=== PATIENT | male | born 1935 | race Caucasian/White ===

== ENCOUNTER 2017-09-15 08:25 | Outpatient (CLI) | payer MEDICARE, BC, OTHER ==
[2017-09-15] MEDS ORDERED: Iopamidol 370 76% 100 ML VIAL ONE (09:00)
--- NOTE | 2017-09-15 12:32 | CT ---
CT OF THE CHEST AND ABDOMEN AND PELVIS WITH IV CONTRAST: Date: 09/15/17 INDICATION: 81-year-old male with history of renal carcinoma of the right kidney. COMPARISON: CT of the chest, abdomen, and pelvis dated 05/11/17 from [facility]. TECHNIQUE: Multiple CT images were obtained of the chest, abdomen, and pelvis utilizing 70 mL of Isovue-370. Axi al and coronal reformatted images were constructed from the raw data. FINDINGS: CHEST: There are numerous scattered pulmonary nodules and masses consistent with metastatic disease. The ind ex mass within the left upper lobe, anterior segment, has enlarged, measuring 5.1 cm, where on the mo previous examination the lesion measured 3.0 cm. The lesion now abuts the medial margin of the ant erior superior mediastinum. The index nodule within the anterior segment of the right upper lobe has enlarged, now measuring 3.0 cm, whereas it previously measured 2.5 cm. Numerous additional nodules arroyo ve enlarged bilaterally. There has been interval development of small bilateral pleural effusions. There are enlarging mediastinal lymph nodes. One of the largest is seen within the left paraesophagea l region measuring 1.6 cm, where previously it measured 1.4 cm. There is an additional enlarged parae sophageal lymph node seen adjacent to the left posterolateral aspect of the left atrium measuring 2.5 x 4.0 cm, where it previously measured 1.8 x 3.5 cm. There are scattered vascular calcifications involving the coronary artery and thoracic aorta. There i s mild bilateral male gynecomastia. ABDOMEN: Multiple small hypodense lesions involving the liver likely reflective of cysts are similar appearing . The large, heterogeneous, centrally necrotic mass centered within the superior aspect of the right pa rarenal space arising from the superior pole of the right kidney has enlarged measuring 13.9 x 13.6 x 15.7 cm, whereas the lesion on the comparison examination measured 13.2 x 13.5 x 15.4 cm. Regional m etastatic disease within the right perinephric space is again demonstrated. There is superior mass ef fect on the posterior inferior margin of the right hepatic lobe, as well as the right adrenal gland. There is no overt evidence of renal vein invasion demonstrated. The right renal pelvic staghorn calcu zulma is stable. There are multiple small stones within the gallbladder. Pancreas and left adrenal gland are normal ap pearing. Small hyperdense exophytic lesion off the superior pole of the left kidney measuring 1.4 cm is stable in size and was characterized on previous evaluations as a hyperdense cyst. The spleen measures 16.9 cm, slightly more pronounced on the prior exam where it measured up to 16.0 cm. The perinephric edema involving the right aspect of the abdomen is similar. Scattered vascular calcif ications involving the abdominal aorta are similar. PELVIS: There is scattered diverticula involving the colon without evidence of active diverticulitis. No osteolytic or osteoblastic lesion is identified. There is scattered degenerative and osteoarthriti c change. There is a right foraminal disc protrusion containing gas at the L5-S1 level that is slightly more pr onounced than seen on the prior examination. This gas does extend into the right extraforaminal space . IMPRESSION: 1. Worsening primary and metastatic disease. 2. Interval development of small bilateral pleural effusions. 3. Worsening splenomegaly. 4. Cholelithiasis and stable left hyperdense renal cyst. 5. Right L5-S1 foraminal disc protrusion containing vacuum disc phenomenon. Recommend correlation fo r any symptoms and signs of radiculopathy. POS: [facility]
== END 2017-09-15 08:26 | disposition home or self-care (01) ==
LOC: SCSCT 08:25
PROVIDERS: ATTEND Internal Medicine Hematology & Oncology
DX: C64.1 Malignant neoplasm of right kidney, except renal pelvis (principal); J90 Pleural effusion, not elsewhere classified; R16.1 Splenomegaly, not elsewhere classified; K80.20 Calculus of gallbladder without cholecystitis without obstruction; M51.27 Other intervertebral disc displacement, lumbosacral region
CPT/HCPCS: 71260; 74177

== ENCOUNTER 2017-09-20 06:47 | Inpatient (IN) | payer MEDICARE, BC, OTHER ==
[2017-09-20] MEDS ORDERED: Ondansetron HCl/PF 4 MG/2 ML Vial ONE (07:10)
--- NOTE | 2017-09-20 07:41 | RAD ---
PORTABLE UPRIGHT CHEST ONE VIEW: History: 81-year-old male with cough and abdominal pain. Known renal cell carcinoma with metastasis. FINDINGS: There are patchy bilateral alveolar parenchymal changes in the perihilar regions and both lower lobes , worse on the left side. These changes have worsened when compared to the 12-14-16 study. There is amaris e nodular parenchymal changes in both right and left more peripheral lungs which have increased in si ze when compared to the 12-14-16 study. These are suspicious for enlarging metaphysis. Small pleural ef fusions, slightly larger on the left side. IMPRESSION: Patchy bilateral alveolar nodular parenchymal changes, evidence for progressive pulmonary metaphysis. Small left pleural effusion and minimal right costophrenic angle blunting. Patchy increased bronchov ascular markings bilaterally, little changed from CT [employer], 09-15-17. POS: [facility]
[2017-09-20 07:43] LABS: Lactic Acid - Sepsis 2.1 mmol/L (0.5-2.2)
[2017-09-20 08:07] LABS: ALT (SGPT) 12 U/L (8-55); AST (SGOT) 27 U/L (5-34); Alkaline Phosphatase 215 U/L (40-150); Anion Gap 17 mmol/L (10-20); BUN (Urea Nitrogen) 19 mg/dL (8.4-25.7); Bilirubin, Total 1.3 mg/dL (0.2-1.2); Calc. Creatinine Clearance 0 mL/min (70-130); Calcium 10.2 mg/dL (7.8-10.44); Carbon Dioxide 24 mmol/L (23-31); Chloride 97 mmol/L (98-107); Estimated GFR-MDRD 69; Globulin 4.5 g/dL (2.4-3.5); Lipase 7 U/L (8-78); Protein, Total 7.7 g/dL (5.8-8.1)
[2017-09-20 08:09] LABS: Troponin I Less than 0.010 ng/mL (< 0.028)
[2017-09-20 08:15] LABS: Hematocrit 43.8 % (42.0-52.0); Mean Platelet Volume 9.5 fL (7.4-10.4); White Blood Cell (WBC) Count 19.8 thou/uL (4.8-10.8)
[2017-09-20 08:23] LABS: Band 3 % (5-11); Reactive Lymphocytes 2 % (0-10)
[2017-09-20 08:25] LABS: Neutrophil 87 % (42-75)
--- NOTE | 2017-09-20 08:35 | CT ---
CT ABDOMEN AND PELVIS WITH CONTRAST: History: 81-year-old male with abdominal pain. Again noted is a very large advanced renal cell carcinoma with pulmonary metastasis as well as metast atic disease within the abdomen and retroperitoneum, stable from the prior 09-15-17 study. The gallbla dder contains gallstones and appears to be definitely more distended than on the prior study with amaris e gallbladder wall thickening and indistinction raising concern for developing acute cholecystitis. N o ductal dilatation. Stable ascites and pleural effusions, greater on the left side. Stable renal cys t. Stable small hyperdense left renal cyst and stable nonobstructing right renal calculus. Stable spl enomegaly. IMPRESSION: Interval enlargement and distention of the gallbladder with some gallbladder wall thickening and manjit stinction raising concern for acute cholecystitis since the 09-15-17 study with cholelithiasis. Consid er follow up gallbladder ultrasound or Nuclear Medicine hepatobiliary scan for further assessment. St able extensive primary and metastatic renal malignancy changes within the abdomen and chest. Other st able findings as above. POS: [facility]
[2017-09-20] MEDS ORDERED: Piperacillin/Tazobactam 3.375 GM in Sodium Chloride 0.9% 100 ML IVPB SCH (09:15)
[2017-09-20 09:58] LABS: Bilirubin Small (Negative); Blood, Urine Large (Negative); Glucose, Urine (Dipstick) Negative (Negative); Ketone, Urine Negative (Negative); Nitrite Negative (Negative); Protein, Urine (Dipstick) 30 mg/dL (Neg-Trace)
[2017-09-20 10:01] LABS: Hyaline Casts/LPF 4-6 HYALINE CAST LPF (0-3 Hyaline); Squamous Epithelial None Seen HPF (0-3)
[2017-09-20 10:14] LABS: Bacteria/HPF Rare-Few HPF (None Seen)
--- NOTE | 2017-09-20 10:23 | ULT ---
RIGHT UPPER QUADRANT ULTRASOUND: Indication: Right upper quadrant pain. Comparison: CT abdomen and pelvis, 09-12-17. FINDINGS: Gallbladder is distended with multiple small stones and gallbladder sludge. The gallbladder is thicke bryon with pericholecystic fluid. No sonographic Huang's sign is reported. Common bile duct measured 5 .3 mm. There are bilateral hepatic cysts. Large superior right renal pole mass causes prominent mass effect on the posterior aspect of the right hepatic lobe. The right kidney measured approximately 9.5 x 6.5 x 5.9 cm. Visualized aspects of the pancreas are unremarkable. IMPRESSION: 1. Findings suspicious for acute calculus cholecystitis. Recommended correlation with clinical exam. If clinically indicated, HIDA scan my helpful. 2. Right and left hepatic lobe cysts. 3. Large right renal malignancy. POS: [facility]
[2017-09-20] MEDS ORDERED: ISOVUE-370 76%-LOCM 1 ML ONE (13:07)
--- NOTE | 2017-09-20 13:26 | HP ---
PRIMARY CARE PHYSICIAN: Anuj Whaley D.O. REASON FOR ADMISSION: Acute cholecystitis, sepsis, urinary tract infection. 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 This patient was admitted in our hospital on 09/14/2016. At that time, he was diagnosed with pulmonary embolism and superficial vein thrombosis. The patient was treated with anticoagulation therapy and subsequently he was taking Eliquis therapy. Patient is still on Eliquis therapy and he took last tablet yesterday evening. This morning he did not take any blood thinner medicine. Patient has a history of metastatic renal cell carcinoma diagnosed after lung biopsy and the patient was getting chemotherapy pill, but that chemotherapy pill made toxicity to the liver and that is why it was discontinued and subsequently patient was kept on immunotherapy since February and the patient was getting immunotherapy every 2 weeks, but that was also not making any improvement as per Dr. Grider and his last immunotherapy was about 2 weeks ago. The patient is normally feeling up to his baseline health. He is able to ambulate and he did not have any problem up until last night when he started having diffuse abdominal pain predominantly in the right upper quadrant associated with nausea, episode of vomiting as well as rigors and chills. He denies any urinary tract infection symptoms, but he does have a history of benign enlargement of prostate and he is taking Flomax. Patient also has increased frequency, but he attributes to be due to Lasix. He denies any diarrhea, though he is constipated. He denies any melena or hematochezia. He denies any hematemesis. He denies any fever. He denies any chest pain or palpitation. He denies any orthopnea, PND or leg swelling. REVIEW OF SYSTEMS: The following complete review of systems was negative, unless otherwise mentioned in the HPI or below: Constitutional: Weight loss or gain, ability to conduct usual activities. Skin: Rash, itching. Eyes: Double vision, pain. ENT/Mouth: Nose bleeding, neck stiffness, pain, tenderness. Cardiovascular: Palpitations, dyspnea on exertion, orthopnea. Respiratory: Shortness of breath, wheezing, cough, hemoptysis, fever or night sweats. Gastrointestinal: Poor appetite, abdominal pain, heartburn, nausea, vomiting, constipation, or diarrhea. Genitourinary: Urgency, frequency, dysuria, nocturia. Musculoskeletal: Pain, swelling. Neurologic/Psychiatric: Anxiety, depression. Allergy/Immunologic: Skin rash, bleeding tendency. Please see my HPI for pertinent positives and negatives. All other review of systems reviewed and negative except as mentioned in the HPI. ALLERGIES: Pazopanib CURRENT HOME MEDICATIONS: Amiodarone 100 mg p.o. daily, Lasix 20 mg as needed, Protonix 40 mg p.o. daily, Flomax 0.4 mg p.o. daily, Corlanor 2.5 mg twice daily , Entresto 24/26 mg 1 tablet twice daily, Proscar 5 mg p.o. daily, Lipitor 10 mg p.o. daily, Eliquis 2.5 mg p.o. b.i.d., Centrum one tablet p.o. daily. EMERGENCY ROOM COURSE: Patient has received Zosyn, IV fluids and Zofran. 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 PAST SURGICAL HISTORY: Sinuplasty, surgery on the testicle for removal of growth, right knee surgery, tonsillectomy, foot surgery, cardiac catheterization , bronchoscopy with lung biopsy. PAST PSYCHIATRIC HISTORY: Reviewed and negative. SOCIAL HISTORY: Patient is . His is present at bedside. He denies any smoking or other illicit drug abuse. He has a remote history of alcohol use, but socially. FAMILY HISTORY: No strong family history of premature coronary artery disease, stroke or cancer. PHYSICAL EXAMINATION: VITAL SIGNS: On arrival, blood pressure 136/79, pulse 130, respiratory rate 36 , temperature 97.7, saturation 90% on room air, weight 92.5 kilograms. GENERAL: Patient is currently chronically ill, appears no obvious acute distress. HEENT: Head: Normocephalic, atraumatic. Eyes: Pupils round, reactive to light. Extraocular muscles intact. ENT: Oropharynx within normal limits. Moist mucous membranes. No oral lesions. No pharyngeal erythema, no exudate. NECK: Supple, no JVD, no thyromegaly, no carotid bruits, no JVD. LUNGS: Clear to auscultation without any rhonchi or rales. CARDIAC: S1, S2 regular, slight tachycardia, no murmur, no gallop, no rub. ABDOMEN: Patient does have right upper quadrant tenderness, diffuse soreness noted. No peritoneal signs, no guarding, no rigidity, no rebound, no suprapubic discomfort. BACK: Unremarkable. No CVA tenderness. EXTREMITIES: Upper extremity passive movement of all joints is normal. Lower extremities: No edema. Good peripheral pulsation. SKIN: No skin rash. HEMATOLOGICAL: No lymphadenopathy. PSYCHIATRIC: Normal affect. NEUROLOGIC: Nonfocal examination. SIGNIFICANT LABS: EKG showing normal sinus rhythm, lateral wall ST-T changes. Chest x-ray: Cardiomegaly without any acute process. Abdomen ultrasound reported as acute acalculous cholecystitis, right and left hepatic lobe cyst, large right renal malignancy. Abdomen and pelvis CT scan showed interval enlargement and distention of the gallbladder with gallbladder wall thickening, stable extensive primary and metastatic renal malignancy, changes within the abdomen and chest. CBC: WBC 19.8, hemoglobin 12.5, platelet 237 with bandemia. BMP: Sodium 133, potassium 4.7, chloride 97, carbon dioxide 24, anion gap 17, BUN 19, creatinine 1.04, glucose 161, calcium 10.2. LFT: Bilirubin 1.3, AST 27, ALT 12, alkaline phosphatase 215, albumin 3.2, lipase 7, CK-MB 0.6, troponin I less than 0.010. Lactic acid 2.1. Urinalysis: Leukocyte esterase trace, high specific gravity, blood large. Influenza A and B negative. ASSESSMENT AND PLAN: 1. Sepsis, source of infection is likely acute cholecystitis and urinary tract infection. We will send urine culture and blood culture. Patient will be treated with Rocephin 2 gram IV daily and Levaquin 750 mg IV daily. We will follow up on culture result and change antibiotic therapy accordingly. We will closely monitor on telemetry floor. Patient has underlying congestive heart failure and that is why he may not be able to get IV fluids. His blood pressure is chronically low because of cardiomyopathy. 2. Mild hypoxia on admission, likely related with his poor inspiratory effort because of abdominal pain from acute cholecystitis. At this point, his chest x- ray is not showing any acute process. We will prefer to give him incentive spirometry to prevent atelectasis. This patient also has underlying pulmonary metastatic disease from renal cell carcinoma as well as he has cardiomyopathy and that also making him pleural effusion, but that is all unchanged from previous. 3. Nonischemic cardiomyopathy with chronic systolic heart failure. We will check BNP, mostly patient has euvolemic status. We will avoid Lasix at this point. 4. Paroxysmal atrial fibrillation with nonsustained ventricular tachycardia from cardiomyopathy. We will continue amiodarone as per home dosage. 5. Chronic systolic heart failure. We will continue Corlanor and Entresto as per home dosage as tolerated. Currently, patient is euvolemic. 6. Benign enlargement of prostate. We will continue Flomax 0.4 mg p.o. daily. 7. History of DVT and pulmonary embolism on chronic anticoagulation therapy with Eliquis. We will hold on Eliquis therapy because plan for surgery. 8. Acute cholecystitis. Dr. Valenzuela already consulted and spoke with him and he is planning to do surgery tomorrow. We will check PT/INR given patient is on Eliquis therapy. If his coagulation profile is unremarkable, then we will consider doing this surgery tomorrow. Meanwhile, we will continue with Rocephin and Levaquin as mentioned above as well as we will control his pain with morphine as needed basis. 9. Gastroesophageal reflux disease. We will continue Protonix 40 mg IV daily. 10. Dyslipidemia. We will continue Lipitor 10 mg p.o. at bedtime. 11. Metastatic renal cell carcinoma, finished chemo and immunotherapy without any improvement. Patient will follow up with Dr. Grider as an outpatient basis. 12. DVT prophylaxis. Only sequential compression device boots today. 13. Gastrointestinal prophylaxis, Protonix 40 mg IV daily. 14. Code status. I spoke with the patient and patient's and confirmed FULL CODE STATUS. 15. Urinary tract infection. We will send urine culture and continue with Rocephin and Levaquin. Disposition plan based on clinical course. We are expecting patient's stay in hospital more than 2 midnights. Plan of care discussed with the patient and at bedside. MTDD
[2017-09-20] MEDS ORDERED: Milk Of Magnesia 30 ML UDCUP PO PRN (14:23)
[2017-09-20] MEDS ORDERED: Zolpidem Tartrate 5 MG TAB PO PRN (14:23)
[2017-09-20] MEDS ORDERED: Loratadine 10 MG TAB PO PRN (14:23)
[2017-09-20] MEDS ORDERED: Diabetic Tussin 200 MG/10 ML UDCUP PO PRN (14:23)
[2017-09-20] MEDS ORDERED: Senokot 8.6 MG TAB PO PRN (14:23)
[2017-09-20] MEDS ORDERED: HYDROcodone/Acetaminophen 5/325 mg Tablet PO PRN (14:23)
[2017-09-20] MEDS ORDERED: Chloraseptic Spray 180 ml Bottle PO PRN (14:23)
[2017-09-20] MEDS ORDERED: Sodium Chloride 0.65% Nasal 44 ML BOT EA NARE PRN (14:23)
[2017-09-20] MEDS ORDERED: Mag-Al 1200 mg/1200 mg/30 ML UDCUP PO PRN (14:23)
[2017-09-20] MEDS ORDERED: Ondansetron ODT 4 MG TAB PO PRN (14:23)
[2017-09-20] MEDS ORDERED: hydrALAZINE 20 MG/ML VIAL SLOW IVP PRN (14:23)
[2017-09-20] MEDS ORDERED: Loperamide HCl 2 MG CAP PO PRN (14:23)
[2017-09-20] MEDS ORDERED: Eucerin (Mineral Oil/Petrolatum,White) 30 gm Jar TOP PRN (14:23)
[2017-09-20] MEDS ORDERED: Artificial Tears 18 DROP/0.9 ML EA EYE PRN (14:23)
--- NOTE | 2017-09-20 14:38 | CON ---
DATE OF CONSULTATION: 09/20/2017 REQUESTING PHYSICIAN: Santos Zamudio M.D. HISTORY OF PRESENT ILLNESS: This is a 81-year-old man with history of metastatic right mayra al cell carcinoma and chronic diastolic and systolic congestive heart failure. The patient presented to the emergency department today with a complaint of insidious onset epigastric to right upper quad rant abdominal pain which started late last night. Pain was associated with some nausea, but no emes is. The patient presented to the emergency department following worsening of the abdominal pain, whi ch was now associated with some chills. He denies any flatulence, abdominal bloating or diarrhea. He reports worsening fatigue over the last 1-2 weeks. He reports early satiety and anorexia. PAST MEDICAL HISTORY: Significant for metastatic large right renal cell carcinoma, pulmonary embolis m, chronic diastolic and systolic congestive heart failure with last ejection fraction noted at 20%-2 5%. The patient also has history of essential hypertension, paroxysmal atrial flutter, coronary babita ry disease and hyperlipidemia. SURGICAL HISTORY: Pertinent for previous coronary angiography, ORIF of right femur fracture during War, which was complicated by osteomyelitis. Other surgical history includes a right tota l knee arthroplasty and revision of the previous femoral surgery. The patient also admits to a child meyer tonsillectomy and adenoidectomy. SOCIAL HISTORY: The patient is and lives at home with his . He denies any cigarette smo braden, ethanol or illicit drug abuse. FAMILY HISTORY: Noncontributory for this patient's age. ALLERGIES: Patient denies any known drug allergies. PREHOSPITALIZATION MEDICATIONS: Includes amiodarone 200 mg p.o. daily, finasteride 5 mg p.o. daily, furosemide 20 mg p.o. daily, pantoprazole 40 mg p.o. daily, simvastatin 20 mg p.o. daily, Flomax 0.4 mg p.o. daily. He also takes Eliquis twice daily, does not recall the dosage. REVIEW OF SYSTEMS: Ten point review of systems essentially unremarkable except for as stated in past medical history and chief complaint. PHYSICAL EXAMINATION: GENERAL: This reveals a 81-year-old normally developed man who is otherwise coherent and interactive and appears stated age. The patient is alert and oriented x3, appears to be in no significant acute distress at the time of my evaluation. VITAL SIGNS: Reveals normocephalic and atraumatic. Pupils equal, round, and reactive to light and a ccommodation. Extraocular muscles are intact bilaterally. HEENT: Scleral icterus is present. HEART: Reveals irregular rate and rhythm. LUNGS: Clear to auscultation bilaterally. Breathing is regular and unlabored. ABDOMEN: Soft with epigastric and right upper quadrant tenderness to palpation. He has a positive M urphy sign. Liver and spleen are otherwise nonpalpable below costal margins. EXTREMITIES: Reveals 2+ radial and pedal pulses bilaterally. He has trace bilateral ankle edema pre sent. NEUROLOGIC: Reveals no focal deficits present. PERTINENT LABORATORY FINDINGS: Includes a CBC with 19,800 white blood cells, hemoglobin 12.5, hemato crit is 43.8, platelet count is 237,000. Metabolic profile: Sodium 133, potassium 4.7, chloride is 97, bicarbonate 24, BUN 19, creatinine is 1.04, glucose 151. Lactic acid is 2.1. Total bilirubin is 1.3, AST and ALT normal at 27 and 12 respectively. Alkaline phosphatase is elevated at 215. Serum lipase is normal at 7. Troponin I is less than 0.010. I have personally reviewed all radiographic s tudies including a CT scan of the abdomen and pelvis obtained today. This is compared to the recent CT scan of abdomen and pelvis obtained on 09/15/2017. This current imaging studies demonstrates an e nlarged gallbladder with multiple intraluminal gallstones. The gallbladder wall is also thickened. Again noted is large right renal cell neoplasm. Ultrasound of the abdomen was also obtained today which confirms the enlarged gallbladder with multip le intraluminal small gallstones, gallbladder wall thickening and pericholecystic fluid. The common bile duct is normal in diameter for this patient's age at 5.3 mm. IMPRESSION: 1. Acute cholecystitis with cholelithiasis. 2. Large metastatic right renal cell carcinoma. 3. History of pulmonary embolism. 4. History of chronic systolic and diastolic congestive heart failure. RECOMMENDATIONS: 1. Antibiotic therapy with bowel rest in hopes that this will resolve the acute cholecystitis. 2. Alternatively consider cholecystostomy tube placement which will provide the patient with the imm ediate relief with gastric pain. This will perhaps do very little to resolve any infectious processe s especially if the gallbladder wall is necrotic. 3. Alternative is to proceed with a definitive care which includes a laparoscopic cholecystectomy. This will be with inherent risks for bleeding, infection, injury to bile duct or surrounding structur es. Additionally, if surgical intervention is elected, the patient faces additional risks for acute myocardial infarction, respiratory failure and difficulty getting off the mechanical ventilatory supp ort. The patient and his have indicated understanding of all this information I provided them today i n the presence of his nurse. I have answered all their questions. I did discuss the above as well with the patient's oncologist, Dr. Grider, by telephone conversation . The patient and his will think over all the information that has been provided today and make a decision as to which direction to go. I will be contacting the patient's in classroom tutor, Dr. Buck lisa as well as his crop ranch hand, Dr. Wil Ann. Thank you again, Dr. Zamudio, for allowing me the opportunity to participate in the care of this romana ent.
[2017-09-20] MEDS ORDERED: Morphine 4 MG/ML VIAL IV PRN (14:39)
[2017-09-20] MEDS: cefTRIAXone\\ROCEPHIN 2 GM, Admixture Fee 1 EACH in Sodium Chloride 0.9% 100 ML IVPB SCH (15:11)
[2017-09-20] MEDS ORDERED: Ivabradine 5 MG TAB PO SCH (21:00)
[2017-09-20] MEDS ORDERED: Atorvastatin Calcium 10 MG TAB PO SCH (21:00)
--- NOTE | 2017-09-20 21:30 | CON ---
DATE OF CONSULTATION: 09/20/2017 HISTORY OF PRESENT ILLNESS: The patient is an unfortunate 81-year-old gentleman with a history of metastatic renal cell carcinoma and coronary artery disease who presents with abdominal discomfort. The patient has a known nonischemic cardiomyopathy.He underwent a cardiac catheterization a year ago where it was found to have an ejection fraction of only 20 to 25%. He was found to have mild coronary artery disease with a 30% LAD lesion and diffuse luminal irregularities in the right coronary artery. The patient has been on medical therapy and has done well, being treated with Entresto and Corlanor. His ejection fraction on last echocardiogram had increased to 45%. The patient was in usual state of health when he presents with abdominal discomfort. Patient also has metastatic renal cell carcinoma, and has been undergone immunotherapy. The patient denies having any chest discomfort. He reports dyspnea on exertion. He denies having any PND or orthopnea. PAST MEDICAL HISTORY: 1. Cardiomyopathy. 2. History of atrial fibrillation. 3. Renal cell carcinoma. 4. Dyslipidemia. 5. History of pulmonary embolus. PAST SURGICAL HISTORY: Knee surgery, tonsillectomy. SOCIAL HISTORY: Nonsmoker. FAMILY HISTORY: No strong family history of heart disease. CURRENT MEDICATIONS: Protonix 40 daily, finasteride 5 mg daily, Eliquis 2.5 b.i.d. Corlanor 2.5 daily, Lipitor 10 at bedtime, Lasix 20 mg p.o. daily, amiodarone 200 mg at bedtime, Entresto 24/26 one tablet twice a day, Flomax 0.4 daily. REVIEW OF SYSTEMS: Ten point system noticeable for weakness and dyspnea. Ten point review of system is otherwise unremarkable. PHYSICAL EXAMINATION: GENERAL: Ill-appearing gentleman with a blood pressure 103/53, heart rate is 102. NECK: Full. LUNGS: Coarse breath sounds bilateral. HEART: Regular rate and rhythm, normal S1, S2, no murmurs. ABDOMEN: Mildly distended. EXTREMITIES: Showed mild edema. NEUROLOGIC: Nonfocal. VASCULAR: Radial pulses are 2+. LABORATORY DATA: Sodium 133, potassium 4.7, chloride 97, bicarbonate 24, BUN 19 , creatinine is 1.0, glucose 161, troponin less than 0.01. White blood cell count is 19.8, hemoglobin 12.5, hematocrit 43.8, platelets are 237. His EKG reveals sinus tachycardia with an ST-T wave abnormality suggestive of ischemia. IMPRESSION: 1. Cholecystitis. 2. History of a nonischemic cardiomyopathy. 3. History of mild coronary artery disease. 4. Metastatic renal cell carcinoma. 5. History of pulmonary embolus. This gentleman presents with cholecystitis. From a cardiac standpoint, he has a history of a nonischemic cardiomyopathy. Maria Teresa hou denies having any angina and does not have evidence of congestive heart failure. From a cardiac standpoint, he is at increased, but acceptable risk for undergoing a cholecystectomy. Concerning his overall health and metastatic renal cell carcinoma, I would recommend proceeding with cholecystectomy. The patient understands that he is at increased risks and appears to be agreeable to proceed. ARIAND
[2017-09-21 05:45] LABS: Prothrombin Time 21.9 SEC (12.0-14.7)
[2017-09-21 05:46] LABS: PTT 48.9 SEC (22.9-36.1)
[2017-09-21 05:55] LABS: ALT (SGPT) 10 U/L (8-55); AST (SGOT) 18 U/L (5-34); Alkaline Phosphatase 174 U/L (40-150); Anion Gap 12 mmol/L (10-20); BUN (Urea Nitrogen) 23 mg/dL (8.4-25.7); Bilirubin, Total 1.2 mg/dL (0.2-1.2); Calc. Creatinine Clearance 60 mL/min (70-130); Calcium 9.2 mg/dL (7.8-10.44); Carbon Dioxide 23 mmol/L (23-31); Chloride 100 mmol/L (98-107); Estimated GFR-MDRD 54; Globulin 3.4 g/dL (2.4-3.5); Protein, Total 5.9 g/dL (5.8-8.1)
[2017-09-21 05:58] LABS: Troponin I 0.025 ng/mL (< 0.028)
[2017-09-21 06:26] LABS: Band 8 % (5-11); Hematocrit 37.1 % (42.0-52.0); Hypochromia SLIGHT = 6-15 cells (100X) (0-5/hpf); Neutrophil 81 % (42-75); Red Blood Cell (RBC) Count 4.48 mill/uL (4.70-6.10); White Blood Cell (WBC) Count 27.6 thou/uL (4.8-10.8)
[2017-09-21] MEDS: Ivabradine 5 MG TAB PO SCH (08:47)
[2017-09-21] MEDS: Tamsulosin HCl 0.4 MG CAP PO SCH (08:48)
[2017-09-21] MEDS: Pantoprazole 40 MG VIAL IVP SCH (08:49)
[2017-09-21] MEDS ORDERED: Finasteride 5 MG TAB PO SCH (09:00)
[2017-09-21] MEDS ORDERED: Sacubitril 24.5 MG/Valsartan 25.5 MG TABLET PO SCH (09:00)
[2017-09-21] MEDS ORDERED: Enoxaparin Sodium 40 MG/0.4 ML SYRINGE SC SCH (09:00)
[2017-09-21] MEDS ORDERED: Cyanocobalamin (Vitamin B-12) 1,000 MCG TAB PO SCH (09:00)
[2017-09-21] MEDS ORDERED: Non-Formulary Item 1 EACH (Sacubitril/Valsartan [Entresto 24 Mg-26 Mg Tablet] 1 EACH) PO SCH (09:00)
[2017-09-21] MEDS ORDERED: Furosemide 40 MG/4 ML VIAL SLOW IVP SCH (09:00)
[2017-09-21] MEDS ORDERED: Non-Formulary Item 1 EACH (Multivitamin/Iron/Folic Acid [Centrum Adults Tablet] 1 EACH) PO SCH (09:00)
[2017-09-21] MEDS ORDERED: Saccharomyces boulardii 250 MG CAP PO SCH (09:00)
[2017-09-21] MEDS ORDERED: CYANOCOBALAMIN 1000 MG PO SCH (09:00)
[2017-09-21] MEDS ORDERED: Multivit, Therapeutic 1 TAB PO SCH (09:00)
--- NOTE | 2017-09-21 12:37 | PDOC.PN ---
- Subjective Encounter Start Date: 09/21/17 Encounter Start Time: 07:45 -: old records requested/rev pt does not have any improvement, still has abdominal pain, has nausea, today wbc count elevated, his rate is fast - Objective Resuscitation Status: Resuscitation Status FULL:Full Resuscitation MAR Reviewed: Yes Vital Signs & Weight: Vital Signs (12 hours) Temp Pulse Resp BP Pulse Ox 09/21/17 11:34 99.4 F 104 H 24 H 105/57 L 92 L 09/21/17 08:00 99 F 122 H 22 H 119/67 95 09/21/17 04:00 99.4 F 104 H 18 100/56 L 93 L Weight Weight 202 lb 13.204 oz I&O: 09/20/17 09/21/17 09/22/17 06:59 06:59 06:59 Intake Total 850 Balance 850 Result Diagrams: 09/21/17 05:28 09/21/17 05:28 Radiology Reviewed by me: Yes EKG Reviewed by me: Yes (tachycardia) Phys Exam - Physical Examination Constitutional: NAD weak HEENT: PERRLA, moist MMs, sclera anicteric Neck: no JVD, supple Respiratory: no wheezing, no rales, no rhonchi Cardiovascular: no significant murmur, irregular Gastrointestinal: soft, no distention, positive bowel sounds RUQ tenderness Musculoskeletal: no edema, pulses present Neurological: non-focal, normal sensation, moves all 4 limbs Lymphatic: no nodes Psychiatric: normal affect, A&O x 3 Skin: no rash, normal turgor Dx/Plan (1) Acute cholecystitis Code(s): K81.0 - ACUTE CHOLECYSTITIS Status: Acute (2) Sepsis Code(s): A41.9 - SEPSIS, UNSPECIFIED ORGANISM Status: Acute (3) UTI (urinary tract infection) Status: Acute (4) Atrial fibrillation and flutter Code(s): I48.91 - UNSPECIFIED ATRIAL FIBRILLATION; I48.92 - UNSPECIFIED ATRIAL FLUTTER Status: Chronic Comment: controlled rate (5) BPH (benign prostatic hyperplasia) Code(s): N40.0 - BENIGN PROSTATIC HYPERPLASIA WITHOUT LOWER URINRY TRACT SYMP Status: Chronic (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 Per oncology, Dr. Grider. Pt to follow up as outpatiet for treatment planning. (10) Physical deconditioning Code(s): R53.81 - OTHER MALAISE Status: Chronic - Plan cont current plan of care, plan discussed w/ family, continue antibiotics * cardiology cleared him for surgery with acceptable risk * he needs surgery otherwise at risk for severe sepsis * surgeon planning to do surgery later today * after surgery will prefer to monitor in ccu/imcu * echo done today * continue rocephin and levaquin * restart selected home medication * discussed with * medication reviewed as below * symptomatic treatment * follow culture * repeat labs tomorrow. Review of Systems - Review of Systems Constitutional: Weakness. negative: Fever, Chills, Sweats, Malaise, Other Respiratory: negative: Cough, Dry, Shortness of Breath, Hemoptysis, SOB with Excertion, Pleuritic Pain, Sputum, Wheezing Cardiovascular: negative: Chest Pain, Palpitations, Orthopnea, Paroxysmal Noc. Dyspnea, Edema, Light Headedness, Other Gastrointestinal: Nausea, Abdominal Pain. negative: Vomiting, Diarrhea, Constipation, Melena, Hematochezia, Other Genitourinary: negative: Dysuria, Frequency, Incontinence, Hematuria, Retention , Other Musculoskeletal: negative: Neck Pain, Shoulder Pain, Arm Pain, Back Pain, Hand Pain, Leg Pain, Foot Pain, Other Skin: negative: Rash, Lesions, Justyn, Bruising, Other - Medications/Allergies Allergies/Adverse Reactions: Allergies Allergy/AdvReac Type Severity Reaction Status Date / Time pazopanib [From Votrient] Allergy Verified 09/20/17 14:57 Medications: Current Medications Acetaminophen (Tylenol) 650 mg PO Q4H PRN PRN Reason: Headache/Fever or Pain Hydrocodone Bitart/Acetaminophen (Summit 5/325) 1 tab PO Q4H PRN PRN Reason: Moderate Pain (4-6) Al Hydroxide/Mg Hydroxide (Maalox) 30 ml PO Q6H PRN PRN Reason: Heartburn or Indigestion Albuterol/Ipratropium (Duoneb) 3 ml NEB O2OR-WP PRN PRN Reason: SOB &/or Wheezing Amiodarone HCl (Cordarone) 100 mg PO DAILY [facility] Last Admin: 09/21/17 08:48 Dose: 100 mg Artificial Tears (Tears Naturale) 0 drop EA EYE PRN PRN PRN Reason: Dry Eyes Atorvastatin Calcium (Lipitor) 10 mg PO HS [facility] Last Admin: 09/20/17 20:48 Dose: 10 mg Cyanocobalamin (Vitamin B-12) 1,000 mcg PO DAILY [facility] Last Admin: 09/21/17 08:48 Dose: 1,000 mcg Finasteride (Proscar) 5 mg PO DAILY [facility] Last Admin: 09/21/17 08:47 Dose: 5 mg Guaifenesin (Robitussin Sf) 200 mg PO Q4H PRN PRN Reason: Cough Last Admin: 09/21/17 08:45 Dose: 200 mg Hydralazine HCl (Apresoline) 10 mg SLOW IVP Q4H PRN PRN Reason: Systolic BP > 180 Ceftriaxone Sodium 2 gm/Miscellaneous Medication 1 each/ Sodium Chloride 100 mls @ 200 mls/hr IVPB 1500 [facility] Last Admin: 09/20/17 15:11 Dose: 100 mls Levofloxacin 750 mg/ Device 150 mls @ 100 mls/hr IVPB 1600 [facility] Last Admin: 09/20/17 16:06 Dose: 150 mls Ivabradine (Corlanor) 2.5 mg PO BID [facility] Last Admin: 09/21/17 08:47 Dose: 2.5 mg Loperamide HCl (Imodium) 2 mg PO PRN PRN PRN Reason: Diarrhea/Loose Stools Loratadine (Claritin) 10 mg PO DAILYPRN PRN PRN Reason: Sinus Symptoms Magnesium Hydroxide (Milk Of Magnesium) 30 ml PO DAILYPRN PRN PRN Reason: Constipation Mineral Oil/White Petrolatum (Eucerin Cream) 0 gm TOP BIDPRN PRN PRN Reason: Dry Skin Morphine Sulfate (Morphine) 2 mg IV Q3H PRN PRN Reason: Pain Multivitamins (Theragran) 1 tab PO DAILY [facility] Last Admin: 09/21/17 08:48 Dose: 1 tab Ondansetron HCl (Zofran Odt) 4 mg PO Q6H PRN PRN Reason: Nausea/Vomiting Ondansetron HCl (Zofran) 4 mg IVP Q6H PRN PRN Reason: Nausea/Vomiting Pantoprazole Sodium (Protonix) 40 mg IVP DAILY [facility] Last Admin: 09/21/17 08:49 Dose: 40 mg Phenol (Chloraseptic Warren 180 Ml Bot) 0 ml PO PRN PRN PRN Reason: Sore Throat Saccharomyces Boulardii (Florastor) 250 mg PO DAILY [facility] Last Admin: 09/21/17 08:48 Dose: 250 mg Sacubitril/Valsartan (Entresto 24.5 Mg-25.5 Mg Tablet) 1 tab PO BID [facility] Last Admin: 09/21/17 09:34 Dose: 1 tab Senna (Senokot) 2 tab PO HSPRN PRN PRN Reason: Constipation Sodium Chloride ([place] Nasal Warren 0.65%) 0 ml EA NARE QIDPRN PRN PRN Reason: Nasal Congestion Sodium Chloride (Flush - Normal Saline) 10 ml IVF Q12HR [facility] Last Admin: 09/21/17 08:49 Dose: 10 ml Sodium Chloride (Flush - Normal Saline) 10 ml IVF PRN PRN PRN Reason: Saline Flush Last Admin: 09/21/17 10:03 Dose: 10 ml Tamsulosin HCl (Flomax) 0.4 mg PO DAILY [facility] Last Admin: 09/21/17 08:48 Dose: 0.4 mg Zolpidem Tartrate (Ambien) 5 mg PO HSPRN PRN PRN Reason: Insomnia Last Admin: 09/20/17 20:51 Dose: 5 mg
[2017-09-21] MEDS ORDERED: Bupivacaine/Epinephrine 0.25% 30 ML VIAL ONE (12:39)
[2017-09-21] MEDS ORDERED: Fentanyl 100 MCG/2 ML VIAL ONE (12:43)
[2017-09-21] MEDS ORDERED: Norepinephrine 8 MG/0.9% NS 0 ML ONE ×2 (13:02→15:46)
[2017-09-21] MEDS ORDERED: Phenylephrine 10 MG/NS 250 ML 0 ML ONE (13:25)
[2017-09-21] MEDS ORDERED: Albumin 5% 500 ML ONE (13:29)
[2017-09-21] MEDS ORDERED: CEFAZOLIN 1 GM VIAL ONE (13:46)
--- NOTE | 2017-09-21 13:55 | CON ---
DATE OF CONSULTATION: 09/21/2017 HISTORY OF PRESENT ILLNESS: Mr. Mike Matos is a pleasant 81-year-old gentleman. He has metastatic renal cell carcinoma. He was first seen by me in 08/2016 when he presented with at [facility] and was transferred to the ICU. He improved with Lasix and a beta-braxton. Chest radiograph at that time showed pulmonary edema. EKG at that time showed lateral ischemia. He had pleural based nodules on radiograph at that time and he was scheduled for a biopsy of one of t hese nodules. Surgical specimen from the biopsy revealed metastatic renal cell carcinoma, he is currently been dayana palmira by Dr. Grider with several different therapies. He underwent cardiac catheterization on that admission, medical management was recommended. He was seen back in 09/2016. 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 He is anticoagulated. He had complications of hematuria with anticoagulation and his anticoagulant d osing has been reduced, which improved the hematuria. He was seen by me again in 11/2016. He had significant elevation of liver enzymes and bilirubin with his AST and ALT in the thousands. He was felt to be hepatic toxicity associated with Votrient. This resolved with discontinuation of this treatment drug. He is admitted this admission with diffuse abdominal pain. Abdominal CT scanning on 09/15/2017 showed worsening of his metastatic disease and bilateral effusion s felt to be metastatic splenomegaly. Cholelithiasis was seen. He is tentatively scheduled for a cholecystectomy this admission. He denies shortness of breath. PAST MEDICAL HISTORY: He is remarkable for ejection fraction of 20%, coronary artery disease, atrial flutter, hypertension, lipid disorder. SOCIAL HISTORY: He is a nonsmoker, nondrinker. ALLERGIES: He reports no drug allergies. FAMILY HISTORY: Negative for lung disease at an early age. He has a very supportive . PHYSICAL EXAMINATION: GENERAL: He is in no distress. Respiratory rate is 28. He is lying flat in bed. He is tachypneic with a respiratory rate in the high 20s to low 30s. HEAD: Unremarkable. NECK: Unremarkable. LUNGS: Clear anteriorly. HEART: Regular rhythm. ABDOMEN: Soft. EXTREMITIES: Without asymmetry. His last dose of Eliquis 2 days ago. LABORATORY DATA: His white count yesterday was 19.8, today it is 27.6, hemoglobin is 10, he has 8% b ands on his peripheral smear. Sodium 130, potassium 4.6, chloride 100, bicarbonate 23, BUN 23, creat inine 1.29. IMPRESSION: 1. Metastatic renal cell carcinoma. 2.? cholecystitis tentatively for cholecystectomy today. Plan supportive care as well as his underl tamir cardiomyopathy. He should be monitored in the ICU after surgery. I have talked to anesthesia a bout his care. If there are any concerns at all, he should be left intubated after surgery until we are sure he is stable, hopefully he will be extubated after surgery.
[2017-09-21] MEDS ORDERED: cefTRIAXone\\ROCEPHIN 1 GM VIAL ONE (14:31)
[2017-09-21] MEDS ORDERED: Phenylephrine 10 MG/NS 250 ML 250 ML ONE ×2 (14:38→15:46)
[2017-09-21] MEDS ORDERED: Propofol 200 MG/20 ML VIAL ONE (14:52)
[2017-09-21] MEDS ORDERED: Ondansetron HCl/PF 4 MG/2 ML Vial ONE (14:52)
[2017-09-21] MEDS ORDERED: Lidocaine 1% PF 5 ML VIAL ONE (14:52)
[2017-09-21 16:00] LABS: Sodium 134 mmol/L (135-148)
[2017-09-21 16:01] LABS: Mechanical Tidal Volume 500 ml; Mode SIMV; Pressure Support 10 cmH2O; Vent YES
[2017-09-21] MEDS: cefTRIAXone\\ROCEPHIN 2 GM, Admixture Fee 1 EACH in Sodium Chloride 0.9% 100 ML IVPB SCH ×2 (16:41→16:43)
[2017-09-21] MEDS ORDERED: Phenylephrine 10 MG/NS 250 ML 250 ML IVPB SCH (16:45)
[2017-09-21] MEDS ORDERED: NS IVPB SCH (17:15)
[2017-09-21] MEDS ORDERED: PHENYLEPHRINE IVPB SCH (17:15)
[2017-09-21] MEDS ORDERED: ADMIXTURE FEE CHEMO IVPB SCH (17:15)
[2017-09-21] MEDS ORDERED: Sodium Chloride 0.9% 1,000 ML IV SCH (17:45)
[2017-09-21] MEDS ORDERED: CCU Electrolyte Replacement 1 EACH FS ONE (17:48)
[2017-09-21] MEDS ORDERED: Sedation Protocol FS ONE (17:48)
--- NOTE | 2017-09-21 17:50 | OP ---
DATE OF OPERATION: 09/21/2017 PREOPERATIVE DIAGNOSES: Acute cholecystitis with cholelithiasis. POSTOPERATIVE DIAGNOSES: Acute gangrenous cholecystitis with cholelithiasis. PROCEDURES PERFORMED: Laparoscopic cholecystectomy. SURGEON: Jose Valenzuela D.O. ANESTHESIA: General endotracheal. ESTIMATED BLOOD LOSS: 20 mL FLUIDS GIVEN: 650 mL crystalloids and 500 mL 0.5% albumin. INDICATIONS FOR OPERATION: A 81-year-old man presented to the emergency department with abdominal pa in. Clinical and radiographic examination was consistent with acute cholecystitis with cholelithiasi s. Given the patient's significant comorbidities, the [facility] Today, the patient reported persistent abdominal pain. White blood cell count which was approximately 20,000 yesterday was now noted at 27,000. The patient was therefore brought to the operating room for laparoscopic cholecystectomy. Findings are consistent with gangrenous necrotic gallbladder in the usual anatomic location. FINDINGS: There is also an incidental notation of the enlarged right renal mass encroaching into the inferior aspect of the right hepatic lobe lateral to the fundus of the gallbladder. DESCRIPTION OF PROCEDURE: Informed consent obtained from the patient who was brought to the operatin g room and placed in supine position. Following general anesthesia, a Mejia catheter was placed to b edside drain. The abdomen was then sterilely prepped and draped in the usual fashion. The skin belo w the umbilicus was infiltrated with 0.25% Marcaine with epinephrine. A small curvilinear infraumbil ical incision was made using an 11 scalpel. Umbilical stalk was grasped with Emmaneul's and elevated. Veress needle was inserted through the incision and placed in the peritoneal cavity through which th e abdomen was insufflated with 3 liters of CO2 gas. Intraabdominal pressure was noted at 2 mmHg. Fo llowing abdominal insufflation, Veress needle was removed and a 5 mm trocar was introduced using a Vi siport under laparoscopy. Laparoscopy confirmed proper placement of the port, no injuries to underly ing structures. Additional laparoscopy revealed gallbladder in the usual anatomic location, complete ly encased by omental adhesions. Also noted was the large right renal mass extending to the inferior aspect of the liver adherent to the inferior aspect of the right hepatic lobe lateral but not encroa keny into the gallbladder itself. At this juncture under laparoscopy a 12 mm epigastric and two 5 m m right lateral subcostal ports were placed after the overlying skin was infiltrated with 0.25% Cesar ine with epinephrine and appropriate incisions made. The patient was placed in reverse Trendelenburg position, rotated to his left. I introduced the [place] dissector through the epigastric port site using this to take down omental adhesions, hemostasis was achieved using cautery. Markedly dilated gallbladder was noted. I then introduced a Prestige grasper through the right lateral subcostal port , attempted to grasp the fundus of the gallbladder without success. The gallbladder was decompressed , evacuating mucoid clear fluid. I then reapplied Prestige grasper to the fundus of the gallbladder which was readily fell apart under grasp. I was able to take down omental adhesions from the remaind er of the gallbladder. Introducing second Prestige grasper through the right medial subcostal port, the Matos's pouch was grasped and retracted laterally. The Prestige grasper from the right lateral subcostal port was reapplied to the fundus of the gallbladder again which was elevated cephalad. I then used a [place] dissector to carefully dissect out the cystic duct at the triangle of Calot. Th e duct was divided between clips applying two clips proximally and one clip at the junction of the cy stic duct and gallbladder. The cystic artery was also dissected free from surrounding structures and divided between clips in a similar fashion. The markedly necrotic gallbladder was removed from the liver bed using cautery with good hemostasis. Gallbladder was removed piecemeal into an EndoCatch, w hich was then delivered out of the abdominal cavity for onward transmission to pathology. Operative site was irrigated with saline solution. Minor ooze from the gallbladder fossa was controlled using Duran. Finding no other pathology, laparoscopy was terminated. Fascia of the epigastric port site was closed using 0 Vicryl suture and Endo closure device under laparoscopy. Abdomen was desufflated and all ports and instruments removed and accounted for. Skin incisions were closed using 4-0 Monocr yl suture in subcuticular fashion. Dermabond was applied to all incisions after closure. The patien t tolerated the operation without any apparent complications and was returned to the [facility] in critical but stable condition.
[2017-09-21] MEDS ORDERED: Potassium Chloride 20 MEQ TAB PO PRN (17:53)
[2017-09-21] MEDS ORDERED: Potassium Chloride 40 MEQ in Sodium Chloride 0.9% 250 ML 250 ML IVPB PRN (17:53)
[2017-09-21] MEDS ORDERED: Potassium Phosphate 9 MMOL in Sodium Chloride 0.9% 100 ML IVPB PRN (17:53)
[2017-09-21] MEDS ORDERED: Potassium Chloride 40 MEQ in Premix Bag 1 BAG IVPB PRN (17:53)
[2017-09-21] MEDS ORDERED: Magnesium 2 GM/NS 0.9% 100 ML 2 GM in Premix Bag 1 BAG IVPB PRN (17:53)
[2017-09-21] MEDS ORDERED: Potassium Phosphate 12 MMOL in Sodium Chloride 0.9% 250 ML 250 ML IV PRN (17:53)
[2017-09-21] MEDS ORDERED: CCU ELECTROLYTE REPLACEMENT PROTOCOL FS PRN (17:53)
[2017-09-21] MEDS ORDERED: Magnesium Oxide 400 MG TAB PO PRN ×2 (17:53)
[2017-09-21] MEDS ORDERED: Potassium Phosphate 15 MMOL in Sodium Chloride 0.9% 250 ML 250 ML IV PRN (17:53)
[2017-09-21] MEDS ORDERED: Lorazepam 2 MG/ML VIAL SLOW IVP PRN (17:54)
[2017-09-21] MEDS ORDERED: DISCONTINUE PREVIOUS NARCOTIC PAIN MEDICATIONS AND BENZODIAZEPINES FS SCH (17:54)
[2017-09-21] MEDS ORDERED: Fentanyl 20 MCG/ML 250 ML IVPB SCH (17:54)
[2017-09-21] MEDS ORDERED: Propofol 1,000 MG/100 ML VIAL IV PRN (17:54)
[2017-09-21] MEDS ORDERED: Amiodarone HCl 150 MG, Admixture Fee 1 EACH in Dextrose 5% in Water 100 ML IVPB SCH ×3 (18:00)
--- NOTE | 2017-09-21 18:13 | PRG ---
DATE OF SERVICE: 09/21/2017 The patient was seen postoperatively in the CCU, post-cholecystectomy for gangrenous gallbladder, it is septic. I have adjusted his ventilator settings after obtaining a blood gas. I have placed a isaiah tral line so that we can give him Levophed. His pressures remained low. He will have a CVP place th at we can monitor intravascular volume. He will be given some normal saline. His was informed.
[2017-09-21] MEDS: Norepinephrine 8 MG/0.9% NS 250 ML IVPB SCH (19:08)
[2017-09-21] MEDS: Amiodarone HCl 450 MG in Dextrose 5% in Water 250 ML IVPB SCH ×2 (19:11)
[2017-09-21] MEDS: Sodium Chloride 0.9% 1,000 ML IV SCH (19:15)
--- NOTE | 2017-09-21 19:21 | RAD ---
AP VIEW CHEST 09/21/17 HISTORY: Right IJ central line placement. AP view chest is obtained on 09/21/17. Comparison made to previous exam from 09/20/17. AP view chest demonstrates interval intubation of the patient. There has been placement of a right ju gular central line. Distal tip overlying the right atrium. Multiple right and left areas of patchy air space opacity seen concerning for multilobar pneumonia. T here is blunting of the left costophrenic angle concerning for left sided pleural effusion. Radiograp hic appearance of the chest is not significantly changed as far as lung parenchymal changes. IMPRESSION: Endotracheal and right jugular central lines have been placed. No other significant interval changes seen. POS: [facility]
[2017-09-21] MEDS ORDERED: Morphine 2 mg/2ml in 0.9% NaCl PF SYRINGE IVP PRN (19:45)
[2017-09-21] MEDS: Morphine 2 MG/ML SYRINGE IVP PRN (19:56)
--- NOTE | 2017-09-21 20:18 | OP ---
DATE OF PROCEDURE: 09/21/2017 PROCEDURE: Central line placement. PREOPERATIVE DIAGNOSIS: Poor IV access, need for vasopressor support. POSTOPERATIVE DIAGNOSIS: Right internal jugular triple lumen catheter placement. ANESTHESIA: 1% lidocaine without epinephrine. DESCRIPTION OF PROCEDURE: Informed consent was obtained from the patient's prior to the procedu re as he was unable to give consent. He was placed in the Trendelenburg position. His right IJ area was prepped with chlorhexidine and dr aped sterilely. Ultrasound had been used prior to that to raquel the site for entry. The right IJ ves amberly was cannulated on the first attempt and a triple lumen catheter was placed into the vessel via th e modified Seldinger technique. Three ports flushed venous blood and placement was confirmed by ches t x-ray. The patient tolerated the procedure well.
[2017-09-21 22:23] LABS: Band 12 % (5-11); Hematocrit 39.4 % (42.0-52.0); Mean Platelet Volume 9.2 fL (7.4-10.4); Neutrophil 78 % (42-75); Red Blood Cell (RBC) Count 4.72 mill/uL (4.70-6.10); White Blood Cell (WBC) Count 18.3 thou/uL (4.8-10.8)
[2017-09-21] MEDS: Acetaminophen 325 MG TAB PO PRN (23:23)
[2017-09-22] MEDS: Sodium Chloride 0.9% 1,000 ML IV SCH (02:42)
[2017-09-22] MEDS: Amiodarone HCl 450 MG in Dextrose 5% in Water 250 ML IVPB SCH ×4 (03:26→19:24)
[2017-09-22 04:40] LABS: ALT (SGPT) 26 U/L (8-55); AST (SGOT) 48 U/L (5-34); Alkaline Phosphatase 150 U/L (40-150); Anion Gap 16 mmol/L (10-20); BUN (Urea Nitrogen) 33 mg/dL (8.4-25.7); Bilirubin, Total 1.5 mg/dL (0.2-1.2); Calc. Creatinine Clearance 48 mL/min (70-130); Calcium 8.8 mg/dL (7.8-10.44); Carbon Dioxide 18 mmol/L (23-31); Chloride 104 mmol/L (98-107); Estimated GFR-MDRD 41; Globulin 3.4 g/dL (2.4-3.5)
[2017-09-22 04:44] LABS: Band 21 % (5-11); Hematocrit 40.6 % (42.0-52.0); Mean Platelet Volume 9.2 fL (7.4-10.4); Neutrophil 66 % (42-75); Red Blood Cell (RBC) Count 4.86 mill/uL (4.70-6.10); White Blood Cell (WBC) Count 17.1 thou/uL (4.8-10.8)
[2017-09-22] MEDS: Acetaminophen 325 MG TAB PO PRN (05:05)
[2017-09-22 06:35] LABS: Oxyhemoglobin 95.9 % (94.0-97.0); Sodium 135 mmol/L (135-148)
[2017-09-22 06:37] LABS: Mechanical Tidal Volume 500 ml; Mode SIMV/PS; Pressure Support 10 cmH2O; Vent YES
[2017-09-22] MEDS: Norepinephrine 8 MG/0.9% NS 250 ML IVPB SCH (07:22)
[2017-09-22] MEDS ORDERED: Sodium Chloride 0.9% 1,000 ML IV SCH (09:02)
--- NOTE | 2017-09-22 09:10 | PRG ---
DATE OF SERVICE: 09/22/2017 SERVICE: Pulmonary Medicine. INTERVAL HISTORY: The patient underwent a cholecystectomy yesterday. Otherwise, he is recovering on mechanical ventilation. He is on a spontaneous breathing trial and he is requiring no sedation. He is doing absolutely fantastic on this trial. He is breathing very comfortably, but he remains on 2 pressors. Otherwise, there has been no interval change to his condition. PHYSICAL EXAMINATION: VITAL SIGNS: Afebrile, pulse 89, blood pressure 112/49, respirations 22, saturation 95% on room air. GENERAL: The patient is awake, alert, in no apparent distress. LUNGS: Decent air entry. There is no prolonged expiratory phase. Crackles are present. HEART: Normal rate, regular. ABDOMEN: Soft, nontender, nondistended. Tender to palpation throughout. There is no rebound or gua rding. MUSCULOSKELETAL: No cyanosis or clubbing. Trace to 1+ pitting in the bilateral lower extremities. GENITOURINARY: Mejia catheter in place. NEUROLOGIC: Grossly nonfocal. LABORATORY DATA: WBC 17.1, hemoglobin 11.7, platelets 245,000. Neutrophil count has improved to 66% . INR 1.9. A pH 7.33, pCO2 36, pO2 118. Creatinine 1.64, which is up trending. BUN 33, anion gap 16, bicarbonate 18. Basic metabolic profile is otherwise unremarkable. Total bilirubin is up trendi ng to 1.5. AST and ALT are normal. BNP is quite elevated. It is above his apparent baseline. Urin e culture x2, blood culture x2, and influenza is unremarkable today. ASSESSMENT: 1. Acute hypoxic respiratory failure. 2. Acute cholecystitis. 3. Acute on chronic systolic heart failure. 4. Metastatic renal cell carcinoma. 5. Septic shock. PLAN: We will wean the pressors. If he tolerates spontaneous breathing trial, extubation will be co nsidered. Pulmonary or Critical Care will continue to follow while the patient remains inhouse. CRITICAL CARE TIME: 30 minutes.
[2017-09-22] MEDS: Pantoprazole 40 MG VIAL IVP SCH (09:32)
[2017-09-22] MEDS: Tamsulosin HCl 0.4 MG CAP PO SCH (09:32)
--- NOTE | 2017-09-22 10:44 | PDOC.PN ---
- Subjective Encounter Start Date: 09/22/17 Encounter Start Time: 09:40 post procedure pt required temporary ventilator, now on spontaneous breathing trial, on vasopressure for low BP, is bedside - Objective Resuscitation Status: Resuscitation Status FULL:Full Resuscitation MAR Reviewed: Yes Vital Signs & Weight: Vital Signs (12 hours) Temp Pulse Resp BP Pulse Ox 09/22/17 08:44 78 109/48 L 09/22/17 08:00 97.7 F 73 18 97 09/22/17 07:34 73 116/50 L 09/22/17 06:00 19 09/22/17 04:00 97.5 F L 18 09/22/17 03:14 99 09/22/17 02:20 73 108/49 L 09/22/17 02:00 16 09/22/17 00:00 98.5 F 16 09/21/17 22:59 88 101/40 L Weight Admit Weight 203 lb Weight 202 lb 13.204 oz Most Recent Monitor Data Heart Rate from ECG 71 NIBP 111/55 NIBP BP-Mean 83 Respiration from ECG 19 SpO2 97 I&O: 09/21/17 09/22/17 09/23/17 06:59 06:59 06:59 Intake Total 850 4408.4 Output Total 402 Balance 850 4006.4 Result Diagrams: 09/22/17 04:00 09/22/17 04:00 Radiology Reviewed by me: Yes (chest xray) EKG Reviewed by me: Yes (nsr) Phys Exam - Physical Examination Constitutional: NAD intubated awake on vent HEENT: PERRLA, moist MMs, sclera anicteric Neck: no JVD, supple Respiratory: no wheezing, no rales, no rhonchi Cardiovascular: no significant murmur, no rub, irregular Gastrointestinal: soft, no distention, positive bowel sounds surgical site clean and healthy Musculoskeletal: no edema, pulses present Neurological: non-focal, normal sensation Lymphatic: no nodes Psychiatric: normal affect Skin: no rash, normal turgor Dx/Plan (1) Acute cholecystitis Code(s): K81.0 - ACUTE CHOLECYSTITIS Status: Acute (2) UTI (urinary tract infection) Status: Acute (3) Atrial fibrillation and flutter Code(s): I48.91 - UNSPECIFIED ATRIAL FIBRILLATION; I48.92 - UNSPECIFIED ATRIAL FLUTTER Status: Chronic Comment: controlled rate (4) BPH (benign prostatic hyperplasia) Code(s): N40.0 - BENIGN PROSTATIC HYPERPLASIA WITHOUT LOWER URINRY TRACT SYMP Status: Chronic (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 Code(s): I50.40 - UNSP COMBINED SYSTOLIC AND DIASTOLIC (CONGESTIVE) HRT FAIL Status: Chronic Qualifiers: Comment: (6) Dyslipidemia Code(s): E78.5 - HYPERLIPIDEMIA, UNSPECIFIED Status: Chronic (7) Hyponatremia Code(s): E87.1 - HYPO-OSMOLALITY AND HYPONATREMIA Status: Chronic Comment: improving (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 Code(s): C78.00 - SECONDARY MALIGNANT NEOPLASM OF UNSPECIFIED LUNG; C64.9 - MALIGNANT NEOPLASM OF UNSP KIDNEY, EXCEPT RENAL PELVIS Status: Chronic Comment: (9) Physical deconditioning Code(s): R53.81 - OTHER MALAISE Status: Chronic (10) Acute kidney failure Status: Acute (11) Respiratory failure, acute Code(s): J96.00 - ACUTE RESPIRATORY FAILURE, UNSP W HYPOXIA OR HYPERCAPNIA Status: Acute (12) Sepsis with acute organ dysfunction Code(s): A41.9 - SEPSIS, UNSPECIFIED ORGANISM; R65.20 - SEVERE SEPSIS WITHOUT SEPTIC SHOCK Status: Acute (13) Septic shock Code(s): A41.9 - SEPSIS, UNSPECIFIED ORGANISM; R65.21 - SEVERE SEPSIS WITH SEPTIC SHOCK Status: Acute - Plan cont current plan of care, plan discussed w/ family, continue antibiotics * weaning and possible extubation later * continue vasopressure for low BP * monitor labs * discussed with * continue IV antibiotics * will monitor in CCU * medication reviewed as below * symptomatic treatment. Review of Systems - Review of Systems Other: unable to review today as pt is on ventilator - Medications/Allergies Allergies/Adverse Reactions: Allergies Allergy/AdvReac Type Severity Reaction Status Date / Time pazopanib [From [facility]] Allergy Verified 09/20/17 14:57 Medications: Current Medications Acetaminophen (Tylenol) 650 mg PO Q4H PRN PRN Reason: Headache/Fever or Pain Last Admin: 09/22/17 05:05 Dose: 650 mg Al Hydroxide/Mg Hydroxide (Maalox) 30 ml PO Q6H PRN PRN Reason: Heartburn or Indigestion Albuterol/Ipratropium (Duoneb) 3 ml NEB [id number] PRN PRN Reason: SOB &/or Wheezing Artificial Tears (Tears Naturale) 0 drop EA EYE PRN PRN PRN Reason: Dry Eyes Guaifenesin (Robitussin Sf) 200 mg PO Q4H PRN PRN Reason: Cough Last Admin: 09/21/17 08:45 Dose: 200 mg Norepinephrine Bitartrate (Levophed) 250 mls @ 0 mls/hr IVPB INF LEAH; Titrate PRN Reason: Protocol Last Admin: 09/22/17 07:22 Dose: 250 mls Amiodarone HCl 450 mg/ (Dextrose/Water) 259 mls @ 0 mls/hr IVPB INF LEAH; Per Protocol PRN Reason: Protocol Last Admin: 09/22/17 03:26 Dose: 259 mls Potassium Chloride 40 meq/ (Sodium Chloride) 270 mls @ 135 mls/hr IVPB ASDIR PRN PRN Reason: FOR SERUM K+ 2.5 - 3.5 Potassium Chloride 40 meq/ (Device) 100 mls @ 50 mls/hr IVPB ASDIR PRN PRN Reason: FOR SERUM K+ 2.5 - 3.5 Magnesium Sulfate 1 gm/ Sodium (Chloride) 102 mls @ 102 mls/hr IV PRN PRN PRN Reason: MAG LEVEL 1.4 - 2.0 Magnesium Sulfate 2 gm/ Device 100 mls @ 100 mls/hr IVPB ASDIR PRN PRN Reason: MAGNESIUM < 1.4 Potassium Phosphate 9 mmol/ (Sodium Chloride) 103 mls @ 25.75 mls/hr IVPB ASDIR PRN PRN Reason: Phosphate 1.0-1.8 Potassium Phosphate 12 mmol/ (Sodium Chloride) 254 mls @ 63.5 mls/hr IV ASDIR PRN PRN Reason: Serum phosphate 0.5-0.9 Potassium Phosphate 15 mmol/ (Sodium Chloride) 255 mls @ 63.75 mls/hr IV ASDIR PRN PRN Reason: Serum Phos < 0.5 Vasopressin 40 unit/ Sodium (Chloride) 102 mls @ 6 mls/hr IV INF LEAH Last Admin: 09/21/17 23:27 Dose: 102 mls Ciprofloxacin/Dextrose 400 mg/ (Device) 200 mls @ 200 mls/hr IVPB Q12HR LE[facility] Last Admin: 09/22/17 10:09 Dose: 200 mls Metronidazole 500 mg/ Device 100 mls @ 100 mls/hr IVPB Q8HR LEAH Sodium Chloride (Normal Saline 0.9%) 1,000 mls @ 0 mls/hr IV .Q0M LEAH PRN Reason: KVO Ivabradine (Corlanor) 2.5 mg PO BID [facility] Last Admin: 09/21/17 08:47 Dose: 2.5 mg Loperamide HCl (Imodium) 2 mg PO PRN PRN PRN Reason: Diarrhea/Loose Stools Loratadine (Claritin) 10 mg PO DAILYPRN PRN PRN Reason: Sinus Symptoms Lorazepam (Ativan) 2 mg SLOW IVP Q2H PRN PRN Reason: Anxiety to achieve Garcia 2-3 Stop: 10/21/17 17:54 Magnesium Hydroxide (Milk Of Magnesium) 30 ml PO DAILYPRN PRN PRN Reason: Constipation Magnesium Oxide (Magnesium Oxide) 400 mg PO BIDPRN PRN PRN Reason: FOR SERUM MAG 1.4 - 2.0 Magnesium Oxide (Magnesium Oxide) 800 mg PO PRN PRN PRN Reason: FOR SERUM MAG < 1.4 Mineral Oil/White Petrolatum (Eucerin Cream) 0 gm TOP BIDPRN PRN PRN Reason: Dry Skin Miscellaneous Medication (Phos-Nak) 1 pkt PO TIDPRN PRN PRN Reason: FOR PHOS LEVEL 1.0 - 1.8 Miscellaneous Medication (Phos-Nak) 2 pkt PO TIDPRN PRN PRN Reason: FOR PHOS LEVEL 0.5 - 1.0 Morphine Sulfate (Morphine) 2 mg IVP Q2H PRN PRN Reason: Breakthrough pain Stop: 10/21/17 17:54 Last Admin: 09/21/17 19:56 Dose: 2 mg Ccu Electrolyte (Replacement Protocol) 0 each FS PRN PRN PRN Reason: FOR ELECTROLYTE REPLACEMENT Ondansetron HCl (Zofran Odt) 4 mg PO Q6H PRN PRN Reason: Nausea/Vomiting Ondansetron HCl (Zofran) 4 mg IVP Q6H PRN PRN Reason: Nausea/Vomiting Pantoprazole Sodium (Protonix) 40 mg IVP DAILY [facility] Last Admin: 09/22/17 09:32 Dose: 40 mg Phenol (Chloraseptic [place] 180 Ml Bot) 0 ml PO PRN PRN PRN Reason: Sore Throat Potassium Chloride (K-Dur) 40 meq PO ASDIR PRN PRN Reason: FOR SERUM K+ 2.5 - 3.5 Potassium Chloride (Klor-Con) 40 meq PER TUBE ASDIR PRN PRN Reason: FOR SERUM K+ 2.5-3.5 Propofol (Diprivan) 1,000 mg IV INF PRN; Protocol PRN Reason: TO ACHIEVE GARCIA SCORE 2-3 Stop: 10/21/17 17:54 Senna (Senokot) 2 tab PO HSPRN PRN PRN Reason: Constipation Sodium Chloride ([place] Nasal [place] 0.65%) 0 ml EA NARE QIDPRN PRN PRN Reason: Nasal Congestion Sodium Chloride (Flush - Normal Saline) 10 ml IVF Q12HR [facility] Last Admin: 09/22/17 09:33 Dose: 10 ml Sodium Chloride (Flush - Normal Saline) 10 ml IVF PRN PRN PRN Reason: Saline Flush Last Admin: 09/21/17 10:03 Dose: 10 ml Tamsulosin HCl (Flomax) 0.4 mg PO DAILY [facility] Last Admin: 09/22/17 09:32 Dose: 0.4 mg
--- NOTE | 2017-09-22 13:50 | PRG ---
DATE OF SERVICE: 09/22/[address] Valenzuela. Mr. Matos is doing well after laparoscopic cholecystectomy. He has been extubated this morning. He is awake and communicative. He is still on 2 pressors which they are weaning. Clear liquids have be en ordered. PHYSICAL EXAMINATION: VITAL SIGNS: Temperature 97.7 degrees, 81, respiratory rate 22, 109/81. LUNGS: Clear to auscultation. CARDIAC: Regular rate and rhythm without murmur or gallop. ABDOMEN: Soft. Laparoscopic wounds healthy without infection or problems. This morning his white count 17, hemoglobin 11.7. Sodium 133, potassium 4.6, BUN 33, creatinine 1.64 , slightly elevated from relative to yesterday, bilirubin is 1.51 up from 1.2 yesterday. BNP is 4014 . ASSESSMENT AND PLAN: The patient is doing well. I would wean pressors as able, advance his diet aft er pressors are weaned. Physical therapy could be ordered and as pressors are weaned he can be mobil ized in a chair and ambulatory.
[2017-09-22] MEDS: metroNIDAZOLE 500 MG in Premix Bag 1 BAG IVPB SCH ×2 (15:15→22:58)
[2017-09-22] MEDS: Ondansetron HCl/PF 4 MG/2 ML Vial IVP PRN (18:00)
[2017-09-22] MEDS: Morphine 2 MG/ML SYRINGE IVP PRN (18:50)
[2017-09-23] MEDS ORDERED: Melatonin 3 MG TAB PO SCH (00:30)
[2017-09-23] MEDS: Norepinephrine 8 MG/0.9% NS 250 ML IVPB SCH (01:24)
[2017-09-23] MEDS: Ondansetron HCl/PF 4 MG/2 ML Vial IVP PRN ×2 (02:57→17:38)
[2017-09-23 03:51] LABS: ALT (SGPT) 21 U/L (8-55); AST (SGOT) 30 U/L (5-34); Alkaline Phosphatase 135 U/L (40-150); Anion Gap 12 mmol/L (10-20); BUN (Urea Nitrogen) 46 mg/dL (8.4-25.7); Bilirubin, Total 0.9 mg/dL (0.2-1.2); Calc. Creatinine Clearance 45 mL/min (70-130); Calcium 9.3 mg/dL (7.8-10.44); Carbon Dioxide 22 mmol/L (23-31); Chloride 104 mmol/L (98-107); Estimated GFR-MDRD 38; Globulin 3.3 g/dL (2.4-3.5); Protein, Total 5.8 g/dL (5.8-8.1)
[2017-09-23 04:05] LABS: Band 5 % (5-11); Hematocrit 39.8 % (42.0-52.0); Hypochromia SLIGHT = 6-15 cells (100X) (0-5/hpf); Mean Platelet Volume 9.3 fL (7.4-10.4); Neutrophil 89 % (42-75); Red Blood Cell (RBC) Count 4.75 mill/uL (4.70-6.10); White Blood Cell (WBC) Count 19.2 thou/uL (4.8-10.8)
[2017-09-23] MEDS: metroNIDAZOLE 500 MG in Premix Bag 1 BAG IVPB SCH ×3 (05:49→21:52)
[2017-09-23] MEDS: Sodium Chloride 0.9% 1,000 ML IV SCH (07:12)
[2017-09-23] MEDS: Pantoprazole 40 MG VIAL IVP SCH (08:18)
[2017-09-23] MEDS: Tamsulosin HCl 0.4 MG CAP PO SCH (08:18)
[2017-09-23] MEDS: Amiodarone HCl 450 MG in Dextrose 5% in Water 250 ML IVPB SCH ×2 (08:31)
--- NOTE | 2017-09-23 10:30 | PDOC.PN ---
- Subjective Encounter Start Date: 09/23/17 Encounter Start Time: 09:10 pt was extubated yesterday, still on amiodarone and levophed drip, is present bedside has poor po intake, creatinine is still rising - Objective Resuscitation Status: Resuscitation Status FULL:Full Resuscitation MAR Reviewed: Yes Vital Signs & Weight: Vital Signs (12 hours) Temp Pulse Resp Pulse Ox 09/23/17 08:00 97.9 F 93 28 H 93 L 09/23/17 07:14 93 L 09/23/17 05:00 97.7 F 09/23/17 03:00 99.0 F 09/23/17 00:00 98.2 F Weight Admit Weight 203 lb Weight 202 lb 13.204 oz Most Recent Monitor Data Heart Rate from ECG 91 NIBP 95/52 NIBP BP-Mean 61 Respiration from ECG 30 SpO2 93 I&O: 09/22/17 09/23/17 09/24/17 06:59 06:59 06:59 Intake Total 4408.4 2003.6 155 Output Total 402 545 140 Balance 4006.4 1458.6 15 Result Diagrams: 09/23/17 03:15 09/23/17 03:15 EKG Reviewed by me: Yes (nsr) Phys Exam - Physical Examination Constitutional: NAD HEENT: PERRLA, moist MMs, sclera anicteric Neck: no JVD, supple central line Respiratory: no wheezing, no rales, no rhonchi Cardiovascular: RRR, no significant murmur, no rub Gastrointestinal: soft, non-tender, no distention, positive bowel sounds surgical site clean Musculoskeletal: no edema, pulses present Neurological: non-focal, normal sensation Lymphatic: no nodes Psychiatric: normal affect Skin: no rash, normal turgor Dx/Plan (1) Acute cholecystitis Code(s): K81.0 - ACUTE CHOLECYSTITIS Status: Acute (2) UTI (urinary tract infection) Status: Acute (3) Atrial fibrillation and flutter Code(s): I48.91 - UNSPECIFIED ATRIAL FIBRILLATION; I48.92 - UNSPECIFIED ATRIAL FLUTTER Status: Chronic Comment: controlled rate (4) BPH (benign prostatic hyperplasia) Code(s): N40.0 - BENIGN PROSTATIC HYPERPLASIA WITHOUT LOWER URINRY TRACT SYMP Status: Chronic (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 Code(s): I50.40 - UNSP COMBINED SYSTOLIC AND DIASTOLIC (CONGESTIVE) HRT FAIL Status: Chronic Qualifiers: Comment: (6) Dyslipidemia Code(s): E78.5 - HYPERLIPIDEMIA, UNSPECIFIED Status: Chronic (7) Hyponatremia Code(s): E87.1 - HYPO-OSMOLALITY AND HYPONATREMIA Status: Chronic Comment: improving (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 Code(s): C78.00 - SECONDARY MALIGNANT NEOPLASM OF UNSPECIFIED LUNG; C64.9 - MALIGNANT NEOPLASM OF UNSP KIDNEY, EXCEPT RENAL PELVIS Status: Chronic Comment: (9) Physical deconditioning Code(s): R53.81 - OTHER MALAISE Status: Chronic (10) Acute kidney failure Status: Acute (11) Respiratory failure, acute Code(s): J96.00 - ACUTE RESPIRATORY FAILURE, UNSP W HYPOXIA OR HYPERCAPNIA Status: Acute (12) Sepsis with acute organ dysfunction Code(s): A41.9 - SEPSIS, UNSPECIFIED ORGANISM; R65.20 - SEVERE SEPSIS WITHOUT SEPTIC SHOCK Status: Acute (13) Septic shock Code(s): A41.9 - SEPSIS, UNSPECIFIED ORGANISM; R65.21 - SEVERE SEPSIS WITH SEPTIC SHOCK Status: Acute - Plan cont current plan of care, plan discussed w/ family, continue antibiotics * pt's normal BP is around 100, will try to wean off levophed with that target * agree with albumin today * continue current iv antibiotics * medication reviewed as below * symptomatic treatment * monitor in ccu today * amiodarone can be changed to PO. * continue IV cipro and flagyl Review of Systems - Review of Systems Constitutional: Weakness. negative: Fever, Chills, Sweats, Malaise, Other Respiratory: negative: Cough, Dry, Shortness of Breath, Hemoptysis, SOB with Excertion, Pleuritic Pain, Sputum, Wheezing Cardiovascular: negative: Chest Pain, Palpitations, Orthopnea, Paroxysmal Noc. Dyspnea, Edema, Light Headedness, Other Gastrointestinal: negative: Nausea, Vomiting, Abdominal Pain, Diarrhea, Constipation, Melena, Hematochezia, Other Genitourinary: negative: Dysuria, Frequency, Incontinence, Hematuria, Retention , Other Musculoskeletal: negative: Neck Pain, Shoulder Pain, Arm Pain, Back Pain, Hand Pain, Leg Pain, Foot Pain, Other Skin: negative: Rash, Lesions, Justyn, Bruising, Other - Medications/Allergies Allergies/Adverse Reactions: Allergies Allergy/AdvReac Type Severity Reaction Status Date / Time [facility] Allergy Verified 09/20/17 14:57 Medications: Current Medications Acetaminophen (Tylenol) 650 mg PO Q4H PRN PRN Reason: Headache/Fever or Pain Last Admin: 09/22/17 05:05 Dose: 650 mg Al Hydroxide/Mg Hydroxide (Maalox) 30 ml PO Q6H PRN PRN Reason: Heartburn or Indigestion Albuterol/Ipratropium (Duoneb) 3 ml NEB [id number] PRN PRN Reason: SOB &/or Wheezing Artificial Tears (Tears Naturale) 0 drop EA EYE PRN PRN PRN Reason: Dry Eyes Guaifenesin (Robitussin Sf) 200 mg PO Q4H PRN PRN Reason: Cough Last Admin: 09/21/17 08:45 Dose: 200 mg Norepinephrine Bitartrate (Levophed) 250 mls @ 0 mls/hr IVPB INF LEAH; Titrate PRN Reason: Protocol Last Admin: 09/23/17 01:24 Dose: 250 mls Amiodarone HCl 450 mg/ (Dextrose/Water) 259 mls @ 0 mls/hr IVPB INF LEAH; Per Protocol PRN Reason: Protocol Last Admin: 09/23/17 08:31 Dose: 259 mls Potassium Chloride 40 meq/ (Sodium Chloride) 270 mls @ 135 mls/hr IVPB ASDIR PRN PRN Reason: FOR SERUM K+ 2.5 - 3.5 Potassium Chloride 40 meq/ (Device) 100 mls @ 50 mls/hr IVPB ASDIR PRN PRN Reason: FOR SERUM K+ 2.5 - 3.5 Magnesium Sulfate 1 gm/ Sodium (Chloride) 102 mls @ 102 mls/hr IV PRN PRN PRN Reason: MAG LEVEL 1.4 - 2.0 Magnesium Sulfate 2 gm/ Device 100 mls @ 100 mls/hr IVPB ASDIR PRN PRN Reason: MAGNESIUM < 1.4 Potassium Phosphate 9 mmol/ (Sodium Chloride) 103 mls @ 25.75 mls/hr IVPB ASDIR PRN PRN Reason: Phosphate 1.0-1.8 Potassium Phosphate 12 mmol/ (Sodium Chloride) 254 mls @ 63.5 mls/hr IV ASDIR PRN PRN Reason: Serum phosphate 0.5-0.9 Potassium Phosphate 15 mmol/ (Sodium Chloride) 255 mls @ 63.75 mls/hr IV ASDIR PRN PRN Reason: Serum Phos < 0.5 Vasopressin 40 unit/ Sodium (Chloride) 102 mls @ 6 mls/hr IV INF [facility] Last Admin: 09/21/17 23:27 Dose: 102 mls Ciprofloxacin/Dextrose 400 mg/ (Device) 200 mls @ 200 mls/hr IVPB Q12HR [facility] Last Admin: 09/23/17 08:17 Dose: 200 mls Metronidazole 500 mg/ Device 100 mls @ 100 mls/hr IVPB Q8HR [facility] Last Admin: 09/23/17 05:49 Dose: 100 mls Sodium Chloride (Normal Saline 0.9%) 1,000 mls @ 0 mls/hr IV .Q0M [facility] PRN Reason: KVO Ivabradine (Corlanor) 2.5 mg PO BID [facility] Last Admin: 09/21/17 08:47 Dose: 2.5 mg Loperamide HCl (Imodium) 2 mg PO PRN PRN PRN Reason: Diarrhea/Loose Stools Loratadine (Claritin) 10 mg PO DAILYPRN PRN PRN Reason: Sinus Symptoms Lorazepam (Ativan) 2 mg SLOW IVP Q2H PRN PRN Reason: Anxiety to achieve Garcia 2-3 Stop: 10/21/17 17:54 Magnesium Hydroxide (Milk Of Magnesium) 30 ml PO DAILYPRN PRN PRN Reason: Constipation Magnesium Oxide (Magnesium Oxide) 400 mg PO BIDPRN PRN PRN Reason: FOR SERUM MAG 1.4 - 2.0 Magnesium Oxide (Magnesium Oxide) 800 mg PO PRN PRN PRN Reason: FOR SERUM MAG < 1.4 Mineral Oil/White Petrolatum (Eucerin Cream) 0 gm TOP BIDPRN PRN PRN Reason: Dry Skin Miscellaneous Medication (Phos-Nak) 1 pkt PO TIDPRN PRN PRN Reason: FOR PHOS LEVEL 1.0 - 1.8 Miscellaneous Medication (Phos-Nak) 2 pkt PO TIDPRN PRN PRN Reason: FOR PHOS LEVEL 0.5 - 1.0 Morphine Sulfate (Morphine) 2 mg IVP Q2H PRN PRN Reason: Breakthrough pain Stop: 10/21/17 17:54 Last Admin: 09/22/17 18:50 Dose: 2 mg Ccu Electrolyte (Replacement Protocol) 0 each FS PRN PRN PRN Reason: FOR ELECTROLYTE REPLACEMENT Ondansetron HCl (Zofran Odt) 4 mg PO Q6H PRN PRN Reason: Nausea/Vomiting Ondansetron HCl (Zofran) 4 mg IVP Q6H PRN PRN Reason: Nausea/Vomiting Last Admin: 09/23/17 02:57 Dose: 4 mg Pantoprazole Sodium (Protonix) 40 mg IVP DAILY [facility] Last Admin: 09/23/17 08:18 Dose: 40 mg Phenol (Chloraseptic [place] 180 Ml Bot) 0 ml PO PRN PRN PRN Reason: Sore Throat Potassium Chloride (K-Dur) 40 meq PO ASDIR PRN PRN Reason: FOR SERUM K+ 2.5 - 3.5 Potassium Chloride (Klor-Con) 40 meq PER TUBE ASDIR PRN PRN Reason: FOR SERUM K+ 2.5-3.5 Propofol (Diprivan) 1,000 mg IV INF PRN; Protocol PRN Reason: TO ACHIEVE GARCIA SCORE 2-3 Stop: 10/21/17 17:54 Senna (Senokot) 2 tab PO HSPRN PRN PRN Reason: Constipation Sodium Chloride ([place] Nasal [place] 0.65%) 0 ml EA NARE QIDPRN PRN PRN Reason: Nasal Congestion Sodium Chloride (Flush - Normal Saline) 10 ml IVF Q12HR [facility] Last Admin: 09/23/17 08:18 Dose: 10 ml Sodium Chloride (Flush - Normal Saline) 10 ml IVF PRN PRN PRN Reason: Saline Flush Last Admin: 09/21/17 10:03 Dose: 10 ml Tamsulosin HCl (Flomax) 0.4 mg PO DAILY [facility] Last Admin: 09/23/17 08:18 Dose: 0.4 mg
--- NOTE | 2017-09-23 12:17 | PRG ---
DATE OF SERVICE: 09/23/2017 SUBJECTIVE: This morning he is awake, alert, and responsive. He is still on Levophed. OBJECTIVE: VITAL SIGNS: Blood pressure is 110/80, sats are 96%, respirations 18. GENERAL: He is awake, alert, and responsive. CHEST: Reveals bilateral crackles. CARDIAC: Normal S1 and S2, no gallops. ABDOMEN: Distended, but soft. LABORATORY DATA: His white count 19,000, hemoglobin and hematocrit 11 and 36, and platelet count 180 . BUN and creatinine are 46 and 1.74. Albumin is low. IMPRESSION: 1. Status post septic shock secondary to gallbladder. 2. Respiratory failure. 3. Renal failure. 4. Deconditioning. PLAN: Albumin being ordered. Cortisol level is being ordered. Required low dose hydrocortisone. T ry and taper his Levophed. Continue broad-spectrum antibiotics. Await final cultures. We will follow.
--- NOTE | 2017-09-23 19:06 | PRG ---
DATE OF SERVICE: 09/23/2017 SUBJECTIVE: oJhann Matos is a 81-year-old male patient seen for Dr. Valenzuela. The patient is [address] atus post laparoscopic cholecystectomy. Vasopressin has been weaned from 12 mcg to 1 mcg and is almo st weaned off. Blood pressure is stable. The patient is alert. He has not been out of bed. Hemogl obin 11.6 today. White count 19.2. Liver function tests are normal today. Bilirubin decreased from 1.5 yesterday to 0.9. He has had some nausea through the night, on clear liquids only. He had a ike wel movement tonight. OBJECTIVE: LUNGS: Reveal 3 rhonchi in the base. CARDIAC: Regular rate and rhythm. ABDOMEN: Soft, bowel sounds present. ASSESSMENT AND PLAN: Resolving inflammatory changes, status post laparoscopic cholecystectomy for ch olelithiasis for acute cholecystitis with ulceration necrosis. We will advance diet tomorrow per charlee gale's tolerance. The patient will need to be mobilized.
[2017-09-24] MEDS: Ondansetron HCl/PF 4 MG/2 ML Vial IVP PRN ×2 (00:32→08:32)
[2017-09-24] MEDS ORDERED: Promethazine HCl 25 MG/ML VIAL SLOW IVP PRN (03:38)
[2017-09-24] MEDS: metroNIDAZOLE 500 MG in Premix Bag 1 BAG IVPB SCH ×3 (05:50→22:48)
[2017-09-24] MEDS: Pantoprazole 40 MG VIAL IVP SCH (08:26)
[2017-09-24] MEDS: Ivabradine 5 MG TAB PO SCH ×2 (08:26→20:53)
[2017-09-24] MEDS: Tamsulosin HCl 0.4 MG CAP PO SCH (08:26)
[2017-09-24 08:40] LABS: Hematocrit 38.4 % (42.0-52.0); Mean Platelet Volume 12.2 fL (7.4-10.4); Red Blood Cell (RBC) Count 4.62 mill/uL (4.70-6.10); White Blood Cell (WBC) Count 17.1 thou/uL (4.8-10.8)
--- NOTE | 2017-09-24 08:52 | PRG ---
DATE OF SERVICE: 09/24/2017 SUBJECTIVE: The patient this morning, he is better. PHYSICAL EXAMINATION: VITAL SIGNS: Blood pressure is improved 105/49, O2 sats 94% on 3 liters, respiratory rate 21, and te mperature 98. He is nauseated. CHEST: Decreased breath sounds, no wheezing. CARDIAC: Normal S1, S2. No gallops. ABDOMEN: Soft, no masses. LABORATORY DATA: His white count initially is 90,000. ASSESSMENT: 1. Status post cholecystectomy. 2. Persistent nausea and vomiting. Cortisol level was normal. PLAN: Continue supportive care and PT. We will follow.
[2017-09-24 09:09] LABS: ALT (SGPT) 13 U/L (8-55); AST (SGOT) 21 U/L (5-34); Alkaline Phosphatase 113 U/L (40-150); Anion Gap 14 mmol/L (10-20); BUN (Urea Nitrogen) 62 mg/dL (8.4-25.7); Bilirubin, Total 0.9 mg/dL (0.2-1.2); Calc. Creatinine Clearance 40 mL/min (70-130); Calcium 9.5 mg/dL (7.8-10.44); Carbon Dioxide 20 mmol/L (23-31); Chloride 106 mmol/L (98-107); Estimated GFR-MDRD 33; Globulin 3.1 g/dL (2.4-3.5); Protein, Total 5.4 g/dL (5.8-8.1)
[2017-09-24 09:18] LABS: Anisocytosis SLIGHT = 6-15 cells (100X) (0-5/hpf); Band 3 % (5-11); Burr Cells SLIGHT = 2-5 cells (100X) (0-1/hpf); Neutrophil 89 % (42-75); Polychromasia SLIGHT = 2-3 cells (100X) (0-2/hpf)
[2017-09-24] MEDS ORDERED: Albumin 25% 25 GM/100 ML BOT IVPB SCH (09:31)
--- NOTE | 2017-09-24 11:26 | PDOC.PN ---
- Subjective Encounter Start Date: 09/24/17 Encounter Start Time: 09:00 pt is off levophed now, off amiodaron drip, stable overnight, today has nausea and feels weak - Objective Resuscitation Status: Resuscitation Status FULL:Full Resuscitation MAR Reviewed: Yes Vital Signs & Weight: Vital Signs (12 hours) Temp Pulse Resp Pulse Ox 09/24/17 08:00 98.5 F 09/24/17 07:12 98.5 F 101 H 21 H 94 L 09/24/17 07:07 94 L 09/24/17 04:00 98.6 F 09/24/17 02:08 95 09/24/17 00:00 98.2 F Weight Admit Weight 203 lb Weight 202 lb 13.204 oz Most Recent Monitor Data Heart Rate from ECG 99 NIBP 108/56 NIBP BP-Mean 71 Respiration from ECG 25 SpO2 93 I&O: 09/23/17 09/24/17 09/25/17 06:59 06:59 06:59 Intake Total 2003.6 2295 80 Output Total 545 626 110 Balance 1458.6 1669 -30 Result Diagrams: 09/24/17 07:38 09/24/17 08:06 EKG Reviewed by me: Yes (nsr) Phys Exam - Physical Examination Constitutional: NAD HEENT: PERRLA, moist MMs, sclera anicteric Neck: no JVD, supple Respiratory: no wheezing, no rales, no rhonchi Cardiovascular: RRR, no significant murmur, no rub Gastrointestinal: soft, non-tender, no distention, positive bowel sounds surgical site clean Musculoskeletal: no edema, pulses present Neurological: non-focal, normal sensation, moves all 4 limbs Lymphatic: no nodes Psychiatric: normal affect, A&O x 3 Skin: no rash, normal turgor Dx/Plan (1) Acute cholecystitis Code(s): K81.0 - ACUTE CHOLECYSTITIS Status: Acute Comment: s/p lap praveena (2) UTI (urinary tract infection) Status: Ruled-out (3) Atrial fibrillation and flutter Code(s): I48.91 - UNSPECIFIED ATRIAL FIBRILLATION; I48.92 - UNSPECIFIED ATRIAL FLUTTER Status: Chronic Comment: controlled rate (4) BPH (benign prostatic hyperplasia) Code(s): N40.0 - BENIGN PROSTATIC HYPERPLASIA WITHOUT LOWER URINRY TRACT SYMP Status: Chronic (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 Code(s): I50.40 - UNSP COMBINED SYSTOLIC AND DIASTOLIC (CONGESTIVE) HRT FAIL Status: Chronic Qualifiers: Comment: (6) Dyslipidemia Code(s): E78.5 - HYPERLIPIDEMIA, UNSPECIFIED Status: Chronic (7) Hyponatremia Code(s): E87.1 - HYPO-OSMOLALITY AND HYPONATREMIA Status: Chronic Comment: improving (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 Code(s): C78.00 - SECONDARY MALIGNANT NEOPLASM OF UNSPECIFIED LUNG; C64.9 - MALIGNANT NEOPLASM OF UNSP KIDNEY, EXCEPT RENAL PELVIS Status: Chronic Comment: (9) Physical deconditioning Code(s): R53.81 - OTHER MALAISE Status: Chronic (10) Acute kidney failure Status: Resolved (11) Respiratory failure, acute Code(s): J96.00 - ACUTE RESPIRATORY FAILURE, UNSP W HYPOXIA OR HYPERCAPNIA Status: Resolved Comment: s/p extubation 09/23 (12) Sepsis with acute organ dysfunction Code(s): A41.9 - SEPSIS, UNSPECIFIED ORGANISM; R65.20 - SEVERE SEPSIS WITHOUT SEPTIC SHOCK Status: Acute (13) Septic shock Code(s): A41.9 - SEPSIS, UNSPECIFIED ORGANISM; R65.21 - SEVERE SEPSIS WITH SEPTIC SHOCK Status: Resolved - Plan cont current plan of care, plan discussed w/ family, continue antibiotics, PT/OT , respiratory therapy * creatinine is rising * will give albumin * now stable enough to transfer to tele * medication reviewed as below * symptomatic treatment. * reduce cipro * continue flagyl * will monitor on tele * will need SNU on discharge Review of Systems - Review of Systems Constitutional: Weakness. negative: Fever, Chills, Sweats, Malaise, Other ENT: negative: Ear Pain, Ear Discharge, Nose Pain, Nose Discharge, Nose Congestion, Mouth Pain, Mouth Swelling, Throat Pain, Throat Swelling, Other Respiratory: negative: Cough, Dry, Shortness of Breath, Hemoptysis, SOB with Excertion, Pleuritic Pain, Sputum, Wheezing Cardiovascular: negative: Chest Pain, Palpitations, Orthopnea, Paroxysmal Noc. Dyspnea, Edema, Light Headedness, Other Gastrointestinal: Nausea. negative: Vomiting, Abdominal Pain, Diarrhea, Constipation, Melena, Hematochezia, Other Genitourinary: negative: Dysuria, Frequency, Incontinence, Hematuria, Retention , Other Musculoskeletal: negative: Neck Pain, Shoulder Pain, Arm Pain, Back Pain, Hand Pain, Leg Pain, Foot Pain, Other Skin: negative: Rash, Lesions, Justyn, Bruising, Other - Medications/Allergies Allergies/Adverse Reactions: Allergies Allergy/AdvReac Type Severity Reaction Status Date / Time pazopanib [From [facility]] Allergy Verified 09/20/17 14:57 Medications: Current Medications Acetaminophen (Tylenol) 650 mg PO Q4H PRN PRN Reason: Headache/Fever or Pain Last Admin: 09/22/17 05:05 Dose: 650 mg Al Hydroxide/Mg Hydroxide (Maalox) 30 ml PO Q6H PRN PRN Reason: Heartburn or Indigestion Albumin Human (Albumin 25%) 25 gm IVPB NOW [facility] Stop: 09/24/17 13:30 Albuterol/Ipratropium (Duoneb) 3 ml NEB [id number] PRN PRN Reason: SOB &/or Wheezing Apixaban (Eliquis) 2.5 mg PO BID [facility] Artificial Tears (Tears Naturale) 0 drop EA EYE PRN PRN PRN Reason: Dry Eyes Atorvastatin Calcium (Lipitor) 10 mg PO HS [facility] Guaifenesin (Robitussin Sf) 200 mg PO Q4H PRN PRN Reason: Cough Last Admin: 09/21/17 08:45 Dose: 200 mg Metronidazole 500 mg/ Device 100 mls @ 100 mls/hr IVPB Q8HR [facility] Last Admin: 09/24/17 05:50 Dose: 100 mls Sodium Chloride (Normal Saline 0.9%) 1,000 mls @ 0 mls/hr IV .Q0M [facility] PRN Reason: KVO Ciprofloxacin/Dextrose 200 mg/ (Device) 100 mls @ 100 mls/hr IVPB Q12HR [facility] Ivabradine (Corlanor) 2.5 mg PO BID [facility] Last Admin: 09/24/17 08:26 Dose: 2.5 mg Loperamide HCl (Imodium) 2 mg PO PRN PRN PRN Reason: Diarrhea/Loose Stools Loratadine (Claritin) 10 mg PO DAILYPRN PRN PRN Reason: Sinus Symptoms Magnesium Hydroxide (Milk Of Magnesium) 30 ml PO DAILYPRN PRN PRN Reason: Constipation Mineral Oil/White Petrolatum (Eucerin Cream) 0 gm TOP BIDPRN PRN PRN Reason: Dry Skin Morphine Sulfate (Morphine) 2 mg IVP Q2H PRN PRN Reason: Breakthrough pain Stop: 10/21/17 17:54 Last Admin: 09/22/17 18:50 Dose: 2 mg Ondansetron HCl (Zofran Odt) 4 mg PO Q6H PRN PRN Reason: Nausea/Vomiting Ondansetron HCl (Zofran) 4 mg IVP Q6H PRN PRN Reason: Nausea/Vomiting Last Admin: 09/24/17 08:32 Dose: 4 mg Pantoprazole Sodium (Protonix) 40 mg IVP DAILY [facility] Last Admin: 09/24/17 08:26 Dose: 40 mg Phenol (Chloraseptic [place] 180 Ml Bot) 0 ml PO PRN PRN PRN Reason: Sore Throat Promethazine HCl (Phenergan) 6.25 mg SLOW IVP Q6H PRN PRN Reason: Nausea/Vomiting Last Admin: 09/24/17 03:58 Dose: 6.25 mg Senna (Senokot) 2 tab PO HSPRN PRN PRN Reason: Constipation Sodium Chloride ([place] Nasal [place] 0.65%) 0 ml EA NARE QIDPRN PRN PRN Reason: Nasal Congestion Sodium Chloride (Flush - Normal Saline) 10 ml IVF Q12HR [facility] Last Admin: 09/24/17 08:27 Dose: 10 ml Sodium Chloride (Flush - Normal Saline) 10 ml IVF PRN PRN PRN Reason: Saline Flush Last Admin: 09/21/17 10:03 Dose: 10 ml Tamsulosin HCl (Flomax) 0.4 mg PO DAILY [facility]
--- NOTE | 2017-09-24 20:10 | PRG ---
DATE OF SERVICE: 09/24/2017 SUBJECTIVE: Mr. Matos is doing well today. He has been transferred to telemetry. OBJECTIVE: VITAL SIGNS: Temperature 97.9, 102, 117/63. LUNGS: Rhonchi at base. CARDIAC: Regular rate and rhythm. ABDOMEN: Soft. Overall, the patient is doing better. His pressors have been discontinued, has been moved to telemet ry. He will need physical therapy and occupational therapy. We will advance his diet as tolerated. Continue care.
[2017-09-24] MEDS: Apixaban 5 MG TAB PO SCH (20:54)
[2017-09-24] MEDS: Atorvastatin Calcium 10 MG TAB PO SCH (20:57)
[2017-09-24] MEDS ORDERED: Ciprofloxacin Lactate/D5W 200 MG in Premix Bag 1 BAG IVPB SCH (21:00)
[2017-09-25 05:22] LABS: #Eosinphils 0.1 thou/uL (0.0-0.7); #Lymphocytes 0.7 thou/uL (1.20-3.40); #Monocytes 1.2 thou/uL (0.11-0.59); #Neutrophils 15.2 thou/uL (1.40-6.50); %Basophils 0.1 % (0.0-1.0); %Eosinophils 0.5 % (0.0-10.0); %Lymphocytes 3.9 % (21.0-51.0); %Monocytes 6.9 % (0.0-10.0); Hematocrit 40.4 % (42.0-52.0); Mean Platelet Volume 10.4 fL (7.4-10.4); Red Blood Cell (RBC) Count 4.86 mill/uL (4.70-6.10); White Blood Cell (WBC) Count 17.1 thou/uL (4.8-10.8)
[2017-09-25 05:33] LABS: ALT (SGPT) 11 U/L (8-55); AST (SGOT) 18 U/L (5-34); Alkaline Phosphatase 107 U/L (40-150); Anion Gap 12 mmol/L (10-20); BUN (Urea Nitrogen) 78 mg/dL (8.4-25.7); Bilirubin, Total 0.9 mg/dL (0.2-1.2); Calc. Creatinine Clearance 29 mL/min (70-130); Calcium 9.9 mg/dL (7.8-10.44); Carbon Dioxide 20 mmol/L (23-31); Chloride 106 mmol/L (98-107); Estimated GFR-MDRD 23; Protein, Total 5.5 g/dL (5.8-8.1)
[2017-09-25] MEDS: metroNIDAZOLE 500 MG in Premix Bag 1 BAG IVPB SCH ×3 (06:21→21:23)
[2017-09-25] MEDS: Ondansetron HCl/PF 4 MG/2 ML Vial IVP PRN (07:38)
[2017-09-25] MEDS ORDERED: AMIODARONE HCL 100 MG PO SCH (09:00)
[2017-09-25] MEDS ORDERED: Albumin 25% 25 GM/100 ML BOT IVPB SCH (09:10)
[2017-09-25] MEDS: Meropenem 500 MG in Sodium Chloride 0.9% 100 ML IVPB SCH ×2 (09:18→15:12)
[2017-09-25] MEDS: Ivabradine 5 MG TAB PO SCH ×2 (09:18→21:21)
[2017-09-25] MEDS: Tamsulosin HCl 0.4 MG CAP PO SCH (09:19)
[2017-09-25] MEDS: Apixaban 5 MG TAB PO SCH ×2 (09:19→21:22)
[2017-09-25] MEDS: Pantoprazole 40 MG VIAL IVP SCH (09:23)
--- NOTE | 2017-09-25 10:30 | PDOC.PN ---
- Subjective Encounter Start Date: 09/25/17 Encounter Start Time: 08:20 pt has nausea and vomiting, today his abdomen is distended, he is not passing gas today, family bedside, creatinine is going up - Objective Resuscitation Status: Resuscitation Status FULL:Full Resuscitation MAR Reviewed: Yes Vital Signs & Weight: Vital Signs (12 hours) Temp Pulse Resp BP Pulse Ox 09/25/17 08:36 98 F 96 20 105/58 L 93 L 09/25/17 04:00 98.0 F 95 18 103/59 L 95 Weight Admit Weight 203 lb Weight 202 lb 13.204 oz Most Recent Monitor Data Heart Rate from ECG 103 NIBP 108/59 NIBP BP-Mean 79 Respiration from ECG 29 SpO2 94 I&O: 09/24/17 09/25/17 09/26/17 06:59 06:59 06:59 Intake Total 2295 1010 Output Total 626 342 Balance 1669 668 Result Diagrams: 09/25/17 04:54 09/25/17 04:54 Radiology Reviewed by me: Yes EKG Reviewed by me: Yes (afib) Phys Exam - Physical Examination Constitutional: NAD HEENT: PERRLA, moist MMs, sclera anicteric central line+ Neck: no JVD, supple Respiratory: no wheezing, no rales, no rhonchi Cardiovascular: no significant murmur, irregular Gastrointestinal: soft distended, hypoactive bowel sound, surgical site clean Musculoskeletal: no edema, pulses present Neurological: non-focal, normal sensation Psychiatric: normal affect Skin: no rash, normal turgor Dx/Plan (1) Acute cholecystitis Code(s): K81.0 - ACUTE CHOLECYSTITIS Status: Acute Comment: s/p lap praveena (2) UTI (urinary tract infection) Status: Ruled-out (3) Atrial fibrillation and flutter Code(s): I48.91 - UNSPECIFIED ATRIAL FIBRILLATION; I48.92 - UNSPECIFIED ATRIAL FLUTTER Status: Chronic Comment: controlled rate (4) BPH (benign prostatic hyperplasia) Code(s): N40.0 - BENIGN PROSTATIC HYPERPLASIA WITHOUT LOWER URINRY TRACT SYMP Status: Chronic (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 Code(s): I50.40 - UNSP COMBINED SYSTOLIC AND DIASTOLIC (CONGESTIVE) HRT FAIL Status: Chronic Qualifiers: Comment: (6) Dyslipidemia Code(s): E78.5 - HYPERLIPIDEMIA, UNSPECIFIED Status: Chronic (7) Hyponatremia Code(s): E87.1 - HYPO-OSMOLALITY AND HYPONATREMIA Status: Chronic Comment: improving (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 Code(s): C78.00 - SECONDARY MALIGNANT NEOPLASM OF UNSPECIFIED LUNG; C64.9 - MALIGNANT NEOPLASM OF UNSP KIDNEY, EXCEPT RENAL PELVIS Status: Chronic Comment: (9) Physical deconditioning Code(s): R53.81 - OTHER MALAISE Status: Chronic (10) Acute kidney failure Status: Resolved (11) Respiratory failure, acute Code(s): J96.00 - ACUTE RESPIRATORY FAILURE, UNSP W HYPOXIA OR HYPERCAPNIA Status: Resolved Comment: s/p extubation 09/23 (12) Sepsis with acute organ dysfunction Code(s): A41.9 - SEPSIS, UNSPECIFIED ORGANISM; R65.20 - SEVERE SEPSIS WITHOUT SEPTIC SHOCK Status: Acute (13) Septic shock Code(s): A41.9 - SEPSIS, UNSPECIFIED ORGANISM; R65.21 - SEVERE SEPSIS WITH SEPTIC SHOCK Status: Resolved (14) Ileus following gastrointestinal surgery Code(s): K91.30 - POSTPROC INTESTINAL OBST, UNSP TO PARTIAL VERSUS COMPLETE Status: Acute - Plan cont current plan of care, plan discussed w/ family, continue antibiotics * will dc cipro * start meropenam as per renal dose * get xray abdomen * keep NPO * start dex with NS with bicarb and kcl * consult nephro for NATASHA * get US kidney * check urine sodium and creatinine * discussed with family * medication reviewed as below * symptomatic treatment * repeat labs tomorrow. Review of Systems - Review of Systems Constitutional: negative: Fever, Chills, Sweats, Weakness, Malaise, Other ENT: negative: Ear Pain, Ear Discharge, Nose Pain, Nose Discharge, Nose Congestion, Mouth Pain, Mouth Swelling, Throat Pain, Throat Swelling, Other Respiratory: negative: Cough, Dry, Shortness of Breath, Hemoptysis, SOB with Excertion, Pleuritic Pain, Sputum, Wheezing Cardiovascular: negative: Chest Pain, Palpitations, Orthopnea, Paroxysmal Noc. Dyspnea, Edema, Light Headedness, Other Gastrointestinal: Nausea, Vomiting, Abdominal Pain. negative: Diarrhea, Constipation, Melena, Hematochezia, Other Genitourinary: negative: Dysuria, Frequency, Incontinence, Hematuria, Retention , Other Musculoskeletal: negative: Neck Pain, Shoulder Pain, Arm Pain, Back Pain, Hand Pain, Leg Pain, Foot Pain, Other Skin: negative: Rash, Lesions, Justyn, Bruising, Other - Medications/Allergies Allergies/Adverse Reactions: Allergies Allergy/AdvReac Type Severity Reaction Status Date / Time pazopanib [From [facility]] Allergy Verified 09/20/17 14:57 Medications: Current Medications Acetaminophen (Tylenol) 650 mg PO Q4H PRN PRN Reason: Headache/Fever or Pain Last Admin: 09/22/17 05:05 Dose: 650 mg Al Hydroxide/Mg Hydroxide (Maalox) 30 ml PO Q6H PRN PRN Reason: Heartburn or Indigestion Albumin Human (Albumin 25%) 25 gm IVPB NOW [facility] Stop: 09/25/17 13:10 Albuterol/Ipratropium (Duoneb) 3 ml NEB [id number] PRN PRN Reason: SOB &/or Wheezing Apixaban (Eliquis) 2.5 mg PO BID [facility] Last Admin: 09/25/17 09:19 Dose: 2.5 mg Artificial Tears (Tears Naturale) 0 drop EA EYE PRN PRN PRN Reason: Dry Eyes Atorvastatin Calcium (Lipitor) 10 mg PO HS [facility] Last Admin: 09/24/17 20:57 Dose: 10 mg Guaifenesin (Robitussin Sf) 200 mg PO Q4H PRN PRN Reason: Cough Last Admin: 09/21/17 08:45 Dose: 200 mg Metronidazole 500 mg/ Device 100 mls @ 100 mls/hr IVPB Q8HR [facility] Last Admin: 09/25/17 06:21 Dose: 100 mls Meropenem 500 mg/ Sodium (Chloride) 100 mls @ 200 mls/hr IVPB 0000,0800,1600 [facility] Last Admin: 09/25/17 09:18 Dose: 100 mls Sodium Bicarbonate 50 meq/ (Dextrose/Sodium Chloride) 1,050 mls @ 50 mls/hr IV .Q21H [facility] Ivabradine (Corlanor) 2.5 mg PO BID [facility] Last Admin: 09/25/17 09:18 Dose: 2.5 mg Loperamide HCl (Imodium) 2 mg PO PRN PRN PRN Reason: Diarrhea/Loose Stools Loratadine (Claritin) 10 mg PO DAILYPRN PRN PRN Reason: Sinus Symptoms Magnesium Hydroxide (Milk Of Magnesium) 30 ml PO DAILYPRN PRN PRN Reason: Constipation Mineral Oil/White Petrolatum (Eucerin Cream) 0 gm TOP BIDPRN PRN PRN Reason: Dry Skin Morphine Sulfate (Morphine) 2 mg IVP Q2H PRN PRN Reason: Breakthrough pain Stop: 10/21/17 17:54 Last Admin: 09/22/17 18:50 Dose: 2 mg Ondansetron HCl (Zofran Odt) 4 mg PO Q6H PRN PRN Reason: Nausea/Vomiting Ondansetron HCl (Zofran) 4 mg IVP Q6H PRN PRN Reason: Nausea/Vomiting Last Admin: 09/25/17 07:38 Dose: 4 mg Pantoprazole Sodium (Protonix) 40 mg IVP DAILY [facility] Last Admin: 09/25/17 09:23 Dose: 40 mg Phenol (Chloraseptic [place] 180 Ml Bot) 0 ml PO PRN PRN PRN Reason: Sore Throat Promethazine HCl (Phenergan) 6.25 mg SLOW IVP Q6H PRN PRN Reason: Nausea/Vomiting Last Admin: 09/24/17 03:58 Dose: 6.25 mg Senna (Senokot) 2 tab PO HSPRN PRN PRN Reason: Constipation Sodium Chloride ([place] Nasal [place] 0.65%) 0 ml EA NARE QIDPRN PRN PRN Reason: Nasal Congestion Sodium Chloride (Flush - Normal Saline) 10 ml IVF Q12HR [facility] Last Admin: 09/25/17 09:19 Dose: 10 ml Sodium Chloride (Flush - Normal Saline) 10 ml IVF PRN PRN PRN Reason: Saline Flush Last Admin: 09/24/17 15:32 Dose: 10 ml Tamsulosin HCl (Flomax) 0.4 mg PO DAILY [facility] Last Admin: 09/25/17 09:19 Dose: 0.4 mg
--- NOTE | 2017-09-25 11:04 | CON ---
DATE OF CONSULTATION: 09/25/2017 SERVICE: Renal Medicine. HISTORY OF PRESENT ILLNESS: Mr. Matos is a 81-year-old white male who had known history of renal can cer with metastasis - status post chemotherapy, status post immunotherapy, and was admitted for an ac [place] cholecystitis. The patient underwent laparoscopic cholecystectomy. During the last 24 hours, re nal function was noted to have further worsen. We are now being consulted for management of his acut e kidney injury on top of his chronic renal failure. Of note, this patient was seen by the renal ser vice back on 11/2016 for acute kidney injury. His imaging/renal ultrasound and CAT scan shows right renal mass. This morning, he is not feeling so well. He was complaining of abdominal distention. H owever, he denies any associated shortness of breath. REVIEW OF SYSTEMS: No chest pain. Positive for abdominal fullness. No shortness of breath, no naus ea, no vomiting. Decreased appetite. No diarrhea, no constipation, no hematochezia, no melena, no h ematemesis. No headache, no diplopia. No fever or chills. MEDICATIONS: Tylenol q.4 hours p.r.n., salt poor albumin 25 grams IV, DuoNeb q.6 hourly p.r.n., Eliq uis 2.5 mg p.o. b.i.d., Lipitor 10 mg tab at bedtime, ivabradine (Corlanor) 2.5 mg p.o. b.i.d., Imodi um p.r.n., meropenem 500 mg IV q.8 hours, metronidazole 500 mg IV q.8 hours, morphine sulfate 2 mg IV q.2 hours p.r.n., Protonix 40 mg IV daily, sodium bicarbonate drip at 50 mL per hour, Flomax 0.4 mg daily. PAST MEDICAL HISTORY: 1. Chronic renal failure of uncertain etiology. 2. History of renal cancer with metastasis, status post chemotherapy/status post immunotherapy. 3. Coronary artery disease. 4. History of cardiomyopathy. 5. Status post PE. 6. Atrial flutter. 7. Hyperlipidemia. 8. BPH. PAST SURGICAL HISTORY: Recently status post laparoscopic cholecystectomy, status post tonsillectomy, status post cardiac catheterization. SOCIAL HISTORY: The patient is , lives in [place]. He has 2 children. 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 Education - [employer]. No blood transfusion. No IV drug abuse. Used to smoke for 10 years, 1 pack a day. ALLERGIES: None. TRAUMA: None. IMMUNIZATIONS: Up to date. HOSPITALIZATION: Please see past medical history. FAMILY HISTORY: No family history of ESRD. PHYSICAL EXAMINATION: VITAL SIGNS: Blood pressure noted at 105/58, heart rate 96, respiratory rate 20, temperature 98, pul se ox 93%. GENERAL: Noted to be awake, supine, comfortable, not in overt distress. SKIN: Decreased turgor. HEENT: He has pinkish conjunctivae, anicteric sclerae. NECK: No neck mass, no carotid bruits, no JVD. CHEST: No deformities. LUNGS: Decreased breath sounds. HEART: Normal sinus rhythm. No murmur, no gallops, no rubs. ABDOMEN: Globular, soft, nontender, no masses. EXTREMITIES: Trace edema. NEUROLOGIC: Awake, oriented to 3 spheres. Moving all extremities. LABORATORY DATA: Of 09/20/2017, urinalysis showed specific gravity of more than 1060, 1+ calcium oxa late, 4-6 hyaline casts. Sodium 133, potassium 4.5, chloride 106, carbon dioxide 20, BUN 78, creatin ine 2.65. Further review of the serum creatinine shows the following, on 09/24/2017, 1.97; 7, 1.74; 09/22/2017, 1.6; 09/21/2017, creatinine 1.29. On 09/25/2017, showed an albumin of 2.5. PLAN: My bias is to continue the salt poor albumin at 25 grams IV q.6 hours. Continue gentle volume repletion. I still suspect some degree of prerenal azotemia suggested by a very concentrated urine s pecific gravity, a few days ago. I will be repeating urinalysis today. Check urine sodium, urine cr eatinine. No indication for any dialytic intervention.
[2017-09-25] MEDS ORDERED: Sodium Chloride 0.9% 500 ML IV SCH ×2 (11:15→12:45)
[2017-09-25 11:32] LABS: Sodium, Urine Less than 20 mmol/L (Not Available)
[2017-09-25 11:39] LABS: Bilirubin Small (Negative); Blood, Urine Large (Negative); Glucose, Urine (Dipstick) Negative (Negative); Ketone, Urine Trace mg/dL (Negative); Nitrite Negative (Negative); Protein, Urine (Dipstick) Trace mg/dL (Neg-Trace)
[2017-09-25 11:41] LABS: Bacteria/HPF None Seen HPF (None Seen); Hyaline Casts/LPF 4-6 HYALINE CAST LPF (0-3 Hyaline); Squamous Epithelial 0-3 HPF (0-3); WBC/HPF 0-3 HPF (0-3)
[2017-09-25 11:54] LABS: RBC/HPF GREATER THAN 50-TNTC HPF (0-3)
[2017-09-25 11:55] LABS: Yeast-All Forms None Seen HPF (None Seen)
--- NOTE | 2017-09-25 12:25 | PRG ---
DATE OF SERVICE: 09/25/2017 SUBJECTIVE: Mr. Matos is not feeling well. He appears to be experiencing slightly labored respirati ons. He had emesis this morning and he experienced nausea. He cannot eat. His abdomen seems disten ded. Abdominal x-rays have been ordered. LABORATORY DATA: The patient's laboratories this morning revealed deterioration of his renal functio n. BUN is up to 78, creatinine 2.65. Urine output is diminished. Nephrology, Dr. Lowe consult has b een submitted. Sodium 133, potassium 4.5, carbon dioxide 20, BUN 78, creatinine 2.6, GFR 23. Liver function tests are normal. Hemoglobin 11, white count 17,000, same as yesterday, decreased from 19,0 00 two days ago. The patient had normal renal function on admission. CAT scan of abdomen and pelvis on admission revealed abnormal gallbladder findings, but kidneys were unremarkable except for a left renal cyst and nonobstructing right renal calculus. Abdominal ultrasound 09/20/2017 revealed gallbl adder problems, large right renal malignancy. No other new renal problems. Repeat renal ultrasound has been ordered with Nephrology consult. OBJECTIVE: VITAL SIGNS: 98 degrees, 96, respiratory rate 24, 93% saturation, 105/58. LUNGS: Rhonchi at base, slightly labored respirations. CARDIAC: Regular rate and rhythm. ABDOMEN: Distended, tympanitic. Mild tenderness without guarding or peritoneal signs. Surgical wou nds look good. ASSESSMENT AND PLAN: 1. Metastatic renal cell carcinoma. 2. Acute kidney injury. Cipro has been discontinued. Meropenem adjusted for renal status. X-ray o f the abdomen pending. Nephrology consult ordered and Dr. Lowe has seen him. Doubt repeat renal ultr asound would add anything as he has had a CAT scan and ultrasound of the abdomen since admission. He has metastatic renal cell carcinoma. Fluids have been increased. The patient is on Eliquis. He is on D5 normal saline with bicarbonate at 50 mL per hour. Urine output is 450 mL for 24 hours. Would recommend increasing his IV fluids. 3. Abdominal distention. He has upper abdominal distention and tympany and emesis. Would recommend n.p.o. and likely he will need an NG tube. 4. Metastatic renal cell carcinoma, deteriorating status. Family has previously seen hospice. I arroyo ve discussed with him his overall care. They desired DNR status and I will enact this. Family and p atient are all in agreement of DNR status. We will ask palliative care to see him. The patient's erall prognosis is poor. 5. Pulmonary embolus, deep vein thrombosis. Agree with Shashank.
--- NOTE | 2017-09-25 12:47 | ULT ---
RENAL ULTRASOUND: HISTORY: Acute renal failure. Renal cancer. Renal mass seen on CT of 09/20/17. FINDINGS: The large heterogeneous mass involving the superior right kidney is partially identified by ultrasoun d. This is better seen on recent CT. The mid and lower right kidney appear unremarkable. No hydron ephrosis seen by ultrasound. The left kidney appears unremarkable by ultrasound. IMPRESSION: Enlarged heterogeneous mass involving the mid and superior right kidney is identified by ultrasound b ut is better characterized on recent CT of 09/20/17. POS: [facility]
--- NOTE | 2017-09-25 12:57 | RAD ---
TWO VIEW ABDOMEN: HISTORY: Abdominal distention. FINDINGS: There is gaseous dilatation of the stomach. There is mild gaseous dilatation of proximal and mid sma ll bowel loops. These loops exhibit differential air fluid levels on the left decubitus view. No fr ee air identified. IMPRESSION: Gas-filled dilated loops of small bowel. Small bowel obstruction or ileus are considerations. POS: [facility]
--- NOTE | 2017-09-25 13:48 | RAD ---
SUPINE ABDOMEN: HISTORY: Assess NG tube placement. FINDINGS: The tip of the NG tube overlies the lower esophagus. This needs to be advanced through the EG juncti on into the stomach. There is gaseous distention of stomach and small bowel seen on this exam. POS: [facility]
--- NOTE | 2017-09-25 14:14 | PRG ---
DATE OF SERVICE: 09/25/2017 SUBJECTIVE: Denies any pain or shortness of breath. He is weak. OBJECTIVE: VITAL SIGNS: Blood pressure 105/58, saturations 98% on 3 liters, respiration 20, temperature 98. CHEST: Decreased breath sounds, no wheezing. CARDIAC: Normal S1, S2, no gallops. ABDOMEN: Distended, but soft. LABORATORY DATA: Creatinine is 2.6, BUN 78. Sodium 130. White count 17,000. IMPRESSION: 1. Increasing renal failure 2. Status post cholecystectomy. 3. Severe deconditioning. 4. Weakness. No history of renal CA, with medication. PLAN: Slow hydration as per Renal. Pulmonary-nance, continue neb treatments and supportive care. We will follow.
--- NOTE | 2017-09-25 16:16 | RAD ---
RADIOGRAPH ABDOMEN ONE VIEW: DATE: 09-25-17 TIME: 3:59 p.m. History: Status post advancement of NG tube in 81-year-old male. Comparison: 09-25-17 at 1:00 p.m. FINDINGS: Image limited to the upper two-thirds of the abdomen. The previously demonstrated NG tube has been ad vanced, such that the distal tip is now at the left far lateral mid abdomen. No interval change in th e multiple air filled dilated small bowel loops. IMPRESSION: Interval advancement of the nasogastric tube deeper into the left side of the abdomen. POS: [facility]
[2017-09-25] MEDS: Albumin 25% 25 GM/100 ML BOT IVPB SCH ×2 (16:50→22:46)
[2017-09-25] MEDS: Atorvastatin Calcium 10 MG TAB PO SCH (21:22)
[2017-09-25] MEDS: Acetaminophen 325 MG TAB PO PRN (21:23)
[2017-09-26] MEDS: Meropenem 500 MG in Sodium Chloride 0.9% 100 ML IVPB SCH ×3 (00:58→17:46)
[2017-09-26] MEDS: Acetaminophen 325 MG TAB PO PRN (03:27)
[2017-09-26] MEDS: Albumin 25% 25 GM/100 ML BOT IVPB SCH ×4 (03:28→21:39)
[2017-09-26 05:28] LABS: #Eosinphils 0.2 thou/uL (0.0-0.7); #Lymphocytes 0.8 thou/uL (1.20-3.40); #Monocytes 1.3 thou/uL (0.11-0.59); #Neutrophils 12.1 thou/uL (1.40-6.50); %Basophils 0.1 % (0.0-1.0); %Eosinophils 1.6 % (0.0-10.0); %Lymphocytes 5.7 % (21.0-51.0); %Monocytes 8.7 % (0.0-10.0); Hematocrit 33.7 % (42.0-52.0); Mean Platelet Volume 10.4 fL (7.4-10.4); Red Blood Cell (RBC) Count 4.01 mill/uL (4.70-6.10); White Blood Cell (WBC) Count 14.5 thou/uL (4.8-10.8)
[2017-09-26 05:39] LABS: Anion Gap 12 mmol/L (10-20); BUN (Urea Nitrogen) 88 mg/dL (8.4-25.7); BUN/Creatinine Ratio 29.63; Calc. Creatinine Clearance 26 mL/min (70-130); Calcium 9.5 mg/dL (7.8-10.44); Carbon Dioxide 22 mmol/L (23-31); Chloride 109 mmol/L (98-107); Estimated GFR-MDRD 21; Phosphorus 5.3 mg/dL (2.3-4.7)
[2017-09-26] MEDS: metroNIDAZOLE 500 MG in Premix Bag 1 BAG IVPB SCH ×3 (06:11→21:39)
[2017-09-26] MEDS: Ivabradine 5 MG TAB PO SCH ×2 (08:38→21:52)
[2017-09-26] MEDS: Tamsulosin HCl 0.4 MG CAP PO SCH (08:38)
[2017-09-26] MEDS: Pantoprazole 40 MG VIAL IVP SCH (08:38)
[2017-09-26] MEDS: Apixaban 5 MG TAB PO SCH ×2 (08:38→21:40)
--- NOTE | 2017-09-26 09:41 | PDOC.PN ---
- Subjective Encounter Start Date: 09/26/17 Encounter Start Time: 08:00 pt has NG tube with LIS, he is very weak, has wheezing, last night fluid was stopped, his renal function is worse, WBC is better - Objective Resuscitation Status: Resuscitation Status DNR:Do Not Resuscitate MAR Reviewed: Yes Vital Signs & Weight: Vital Signs (12 hours) Temp Pulse Resp BP Pulse Ox 09/26/17 08:00 97.1 F L 80 24 H 122/56 L 93 L 09/26/17 05:54 21 H 95 09/26/17 05:30 95 09/26/17 05:21 93 L 09/26/17 04:00 98.0 F 85 20 117/59 L 93 L 09/26/17 00:00 97.9 F 86 22 H 115/56 L 94 L Weight Admit Weight 203 lb Weight 202 lb 13.204 oz Most Recent Monitor Data Heart Rate from ECG 103 NIBP 108/59 NIBP BP-Mean 79 Respiration from ECG 29 SpO2 94 I&O: 09/25/17 09/26/17 09/27/17 06:59 06:59 06:59 Intake Total 1010 2086 Output Total 342 1600 Balance 668 486 Result Diagrams: 09/26/17 04:56 09/26/17 04:56 Radiology Reviewed by me: Yes (chest xray, xray abdomen) EKG Reviewed by me: Yes (tachy) Phys Exam - Physical Examination Constitutional: NAD weak, lethargic HEENT: PERRLA, sclera anicteric NG tube with LIS Neck: no JVD, supple Respiratory: no rales, wheezing present Cardiovascular: RRR, no significant murmur, no rub tachy Gastrointestinal: soft distended, hypoactive BS Musculoskeletal: no edema, pulses present Neurological: moves all 4 limbs Lymphatic: no nodes Psychiatric: normal affect Skin: no rash, normal turgor Dx/Plan (1) Acute cholecystitis Code(s): K81.0 - ACUTE CHOLECYSTITIS Status: Acute Comment: s/p lap praveena (2) UTI (urinary tract infection) Status: Ruled-out (3) Atrial fibrillation and flutter Code(s): I48.91 - UNSPECIFIED ATRIAL FIBRILLATION; I48.92 - UNSPECIFIED ATRIAL FLUTTER Status: Chronic Comment: controlled rate (4) BPH (benign prostatic hyperplasia) Code(s): N40.0 - BENIGN PROSTATIC HYPERPLASIA WITHOUT LOWER URINRY TRACT SYMP Status: Chronic (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 Code(s): I50.40 - UNSP COMBINED SYSTOLIC AND DIASTOLIC (CONGESTIVE) HRT FAIL Status: Chronic Qualifiers: Comment: (6) Dyslipidemia Code(s): E78.5 - HYPERLIPIDEMIA, UNSPECIFIED Status: Chronic (7) Hyponatremia Code(s): E87.1 - HYPO-OSMOLALITY AND HYPONATREMIA Status: Chronic Comment: improving (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 Code(s): C78.00 - SECONDARY MALIGNANT NEOPLASM OF UNSPECIFIED LUNG; C64.9 - MALIGNANT NEOPLASM OF UNSP KIDNEY, EXCEPT RENAL PELVIS Status: Chronic Comment: (9) Physical deconditioning Code(s): R53.81 - OTHER MALAISE Status: Chronic (10) Acute kidney failure Status: Acute (11) Respiratory failure, acute Code(s): J96.00 - ACUTE RESPIRATORY FAILURE, UNSP W HYPOXIA OR HYPERCAPNIA Status: Resolved Comment: s/p extubation 09/23 (12) Sepsis with acute organ dysfunction Code(s): A41.9 - SEPSIS, UNSPECIFIED ORGANISM; R65.20 - SEVERE SEPSIS WITHOUT SEPTIC SHOCK Status: Acute (13) Septic shock Code(s): A41.9 - SEPSIS, UNSPECIFIED ORGANISM; R65.21 - SEVERE SEPSIS WITH SEPTIC SHOCK Status: Resolved (14) Ileus following gastrointestinal surgery Code(s): K91.30 - POSTPROC INTESTINAL OBST, UNSP TO PARTIAL VERSUS COMPLETE Status: Acute - Plan cont current plan of care, plan discussed w/ family, continue antibiotics, respiratory therapy * resume ivf at low rate * continue albumin * chest xray and xray abdomen done and reviewed * add duoneb q 6 hourly * continue NG tube with LIS * continue meropenam * nephrology, cardiology and surgeon following * discussed with * prognosis is guarded * medication reviewed as below * symptomatic treatment. Review of Systems - Review of Systems Other: unable to review with pt today as he lethargic and weak and not reliable - Medications/Allergies Allergies/Adverse Reactions: Allergies Allergy/AdvReac Type Severity Reaction Status Date / Time pazopanib [From [facility]] Allergy Verified 09/20/17 14:57 Medications: Current Medications Acetaminophen (Tylenol) 650 mg PO Q4H PRN PRN Reason: Headache/Fever or Pain Last Admin: 09/26/17 03:27 Dose: 650 mg Al Hydroxide/Mg Hydroxide (Maalox) 30 ml PO Q6H PRN PRN Reason: Heartburn or Indigestion Albumin Human (Albumin 25%) 25 gm IVPB 0400,1000,1600,2200 [facility] Stop: 09/28/17 10:01 Last Admin: 09/26/17 03:28 Dose: 25 gm Albuterol/Ipratropium (Duoneb) 3 ml NEB [id number] PRN PRN Reason: SOB &/or Wheezing Albuterol/Ipratropium (Duoneb) 3 ml NEB [id number] Apixaban (Eliquis) 2.5 mg PO BID [facility] Last Admin: 09/26/17 08:38 Dose: 2.5 mg Artificial Tears (Tears Naturale) 0 drop EA EYE PRN PRN PRN Reason: Dry Eyes Atorvastatin Calcium (Lipitor) 10 mg PO HS [facility] Last Admin: 09/25/17 21:22 Dose: 10 mg Guaifenesin (Robitussin Sf) 200 mg PO Q4H PRN PRN Reason: Cough Last Admin: 09/21/17 08:45 Dose: 200 mg Metronidazole 500 mg/ Device 100 mls @ 100 mls/hr IVPB Q8HR [facility] Last Admin: 09/26/17 06:11 Dose: 100 mls Meropenem 500 mg/ Sodium (Chloride) 100 mls @ 200 mls/hr IVPB 0000,0800,1600 [facility] Last Admin: 09/26/17 08:38 Dose: 100 mls Sodium Bicarbonate 50 meq/ (Dextrose/Sodium Chloride) 1,050 mls @ 75 mls/hr IV .Q14H [facility] Ivabradine (Corlanor) 2.5 mg PO BID [facility] Last Admin: 09/26/17 08:38 Dose: 2.5 mg Loperamide HCl (Imodium) 2 mg PO PRN PRN PRN Reason: Diarrhea/Loose Stools Loratadine (Claritin) 10 mg PO DAILYPRN PRN PRN Reason: Sinus Symptoms Magnesium Hydroxide (Milk Of Magnesium) 30 ml PO DAILYPRN PRN PRN Reason: Constipation Mineral Oil/White Petrolatum (Eucerin Cream) 0 gm TOP BIDPRN PRN PRN Reason: Dry Skin Morphine Sulfate (Morphine) 2 mg IVP Q2H PRN PRN Reason: Breakthrough pain Stop: 10/21/17 17:54 Last Admin: 09/22/17 18:50 Dose: 2 mg Ondansetron HCl (Zofran Odt) 4 mg PO Q6H PRN PRN Reason: Nausea/Vomiting Ondansetron HCl (Zofran) 4 mg IVP Q6H PRN PRN Reason: Nausea/Vomiting Last Admin: 09/25/17 07:38 Dose: 4 mg Pantoprazole Sodium (Protonix) 40 mg IVP DAILY [facility] Last Admin: 09/26/17 08:38 Dose: 40 mg Phenol (Chloraseptic [place] 180 Ml Bot) 0 ml PO PRN PRN PRN Reason: Sore Throat Promethazine HCl (Phenergan) 6.25 mg SLOW IVP Q6H PRN PRN Reason: Nausea/Vomiting Last Admin: 09/24/17 03:58 Dose: 6.25 mg Senna (Senokot) 2 tab PO HSPRN PRN PRN Reason: Constipation Sodium Chloride ([place] Nasal [place] 0.65%) 0 ml EA NARE QIDPRN PRN PRN Reason: Nasal Congestion Sodium Chloride (Flush - Normal Saline) 10 ml IVF Q12HR [facility] Last Admin: 09/26/17 08:38 Dose: 10 ml Sodium Chloride (Flush - Normal Saline) 10 ml IVF PRN PRN PRN Reason: Saline Flush Last Admin: 09/24/17 15:32 Dose: 10 ml Tamsulosin HCl (Flomax) 0.4 mg PO DAILY [facility] Last Admin: 09/26/17 08:38 Dose: 0.4 mg
--- NOTE | 2017-09-26 10:48 | PRG ---
DATE OF SERVICE: 09/26/2017 RENAL MEDICINE SUBJECTIVE: Mr. Matos is 81-year-old white male who was seen by the Renal Service due to his acute kidney injury. The feeling is that this may be a hemodynamically mediated renal dysfunction. His creatinine this morning was 2.9 , yesterday this was 2.6. In addition, this patient also has significant history of metastatic renal cell carcinoma. This morning, he has no new complaints. He has an NG tube has been placed. No other complaints. His shortness of breath is at baseline. PHYSICAL EXAMINATION: VITAL SIGNS: Blood pressure 122/56, heart rate 80, respiratory rate 24, temperature 97.1, pulse ox 93%. GENERAL: Patient is awake, supine, comfortable, not in overt distress. SKIN: Adequate turgor. HEENT: He has slightly pale conjunctivae, anicteric sclerae. NECK: No neck mass, no carotid bruits, no JVD. CHEST: No deformities. LUNGS: Decreased breath sounds. HEART: Normal sinus rhythm. Grade 2/6 systolic murmur, no gallops or rubs. ABDOMEN: Globular, soft, nontender. EXTREMITIES: Trace edema. MEDICATIONS: Medications of 09/26/2017 was reviewed. LABORATORY DATA: Laboratories of 09/26/2017; white count 14.5, hemoglobin 9.6, sodium 139, potassium 4.0, chloride 109, carbon dioxide 22, BUN 88, creatinine 2.97, GFR 21 mL per minute, glucose 145, phosphorus is 5.3, albumin 2.9. ASSESSMENT AND PLAN: 1. Acute kidney injury - secondary to presumptive hemodynamically mediated renal dysfunction. He is currently on maintenance salt poor albumin 25 grams IV q.6 for the next 2 days. Please note renal function has slightly worsened from creatinine 2.65 yesterday to a creatinine of 2.97. At the present time, there is no indication for any dialytic intervention. 2. Metabolic acidosis, slowly improving. Due to the much improved bicarbonate and an issue with this decrease EF, we will place the isotonic bicarbonate drip for the moment. 3. CHF - Supportive care; Cardiology following. For the moment, agree with current management. Continue supportive care. His overall prognosis remains guarded. MTDD
--- NOTE | 2017-09-26 10:58 | RAD ---
PORTABLE CHEST 1 VIEW: Date: 09/26/17 Time: 0829 hours HISTORY: Respiratory distress. FINDINGS/IMPRESSION: Comparison made with exam of 09/21/17. The endotracheal tube has been removed in the interim. Right internal jugular central line is again s een with tip in the projection of the right atrium. A nasogastric tube can be seen in the stomach. Th ere is consolidation at the left lung base. Small bilateral pleural effusions are seen. Atelectatic c hanges have developed at the right lung base. Patchy infiltrates in the left lung are again seen. The re has been interval improvement in the patchy infiltrate in the right upper lung. No pneumothoraces are seen. POS: C
--- NOTE | 2017-09-26 11:23 | RAD ---
ABDOMEN 1 VIEW: Date: 09/26/17 HISTORY: Abdominal distention. COMPARISON: 09/25/17. FINDINGS: Portable 1 view abdomen redemonstrates a nasogastric tube in the left upper quadrant. Multiple air-fi lled loops of small bowel are noted. There is minimal thecal material in the rectum. Trace amount of air and fecal material in the right hemicolon may be present. IMPRESSION: Partial versus high grade obstructive process. Continued surveillance. POS: ASHISH
--- NOTE | 2017-09-26 15:52 | PRG ---
DATE OF SERVICE: 09/26/2017 SUBJECTIVE: Mr. Matos still has an NG tube in place. PHYSICAL EXAMINATION: VITAL SIGNS: He is afebrile, heart rate 78, respiratory rate 16. LUNGS: Clear. HEART: Regular rhythm. ABDOMEN: Soft. LABORATORY DATA: White count 14.5, hemoglobin 9.6, platelets 116,000. Sodium 139, potassium 4, chloride 101, bicarbonate 22, BUN 88, creatinine 2.97 up from 1.64 on 2016. IMPRESSION: 1. Status post cholecystectomy. 2. Acute renal dysfunction after resection of gallbladder. 3. Metastatic renal cell carcinoma progressing. 4. Underlying cardiomyopathy. 5. History of anticoagulation with dose reduction because of hematuria. PLAN: Continue current care.
--- NOTE | 2017-09-26 20:08 | PRG ---
DATE OF SERVICE: 09/26/2017 SUBJECTIVE: Mr. Matos is status post laparoscopic cholecystectomy by Dr. Valenzuela. I am seeing the pat ient for Dr. Valenzuela. The patient is required an NG tube. OBJECTIVE: VITAL SIGNS: Temperature 97.1 degrees, heart rate 79, blood pressure 131/62, respiratory rate is 20. LUNGS: Clear to auscultation. CARDIAC: Regular rate and rhythm without murmur or gallop. ABDOMEN: Distended, tympanitic, nontender. Surgical laparoscopic port sites and wounds were well he aled. LABORATORY DATA: Today, his white count is 14, hemoglobin 9.6. Basic metabolic profile essentially unremarkable. NG tube output 1750 recorded for 09/27/2017. Record for 09/26/2017 and 09/25/2017, not recorded. Ab dominal x-rays today reveal distended loops of small bowel with some gas in the colon. There has bee n no report of a bowel movement. ASSESSMENT AND PLAN: 1. Ileus. I do not hear any bowel sounds. This NG tube is in proper position. Continue IV fluid s upport. Awaiting gastrointestinal function. 2. Metastatic renal cell carcinoma, progressive. 3. Deconditioning. 4. DNR status. 5. Acute kidney injury on chronic kidney disease.
[2017-09-26] MEDS: Atorvastatin Calcium 10 MG TAB PO SCH (21:41)
[2017-09-27] MEDS: Meropenem 500 MG, Admixture Fee 1 EACH in Sterile Water 10 ML SLOW IVP SCH ×4 (00:27→23:42)
[2017-09-27] MEDS: Albumin 25% 25 GM/100 ML BOT IVPB SCH ×3 (04:12→15:48)
[2017-09-27 05:18] LABS: #Eosinphils 0.4 thou/uL (0.0-0.7); #Lymphocytes 0.9 thou/uL (1.20-3.40); #Monocytes 1.3 thou/uL (0.11-0.59); #Neutrophils 11.7 thou/uL (1.40-6.50); %Basophils 0.1 % (0.0-1.0); %Eosinophils 2.5 % (0.0-10.0); %Lymphocytes 6.5 % (21.0-51.0); %Monocytes 9.3 % (0.0-10.0); Hematocrit 34.8 % (42.0-52.0); Mean Platelet Volume 10.6 fL (7.4-10.4); Red Blood Cell (RBC) Count 4.19 mill/uL (4.70-6.10); White Blood Cell (WBC) Count 14.3 thou/uL (4.8-10.8)
[2017-09-27 05:30] LABS: ALT (SGPT) Less than 7 U/L (8-55); AST (SGOT) 12 U/L (5-34); Alkaline Phosphatase 69 U/L (40-150); Anion Gap 12 mmol/L (10-20); BUN (Urea Nitrogen) 94 mg/dL (8.4-25.7); Bilirubin, Total 0.9 mg/dL (0.2-1.2); Calc. Creatinine Clearance 25 mL/min (70-130); Calcium 9.5 mg/dL (7.8-10.44); Carbon Dioxide 23 mmol/L (23-31); Chloride 111 mmol/L (98-107); Estimated GFR-MDRD 19; Globulin 2.2 g/dL (2.4-3.5); Protein, Total 5.6 g/dL (5.8-8.1)
[2017-09-27] MEDS: metroNIDAZOLE 500 MG in Premix Bag 1 BAG IVPB SCH ×3 (05:34→21:40)
[2017-09-27] MEDS ORDERED: Clopidogrel Bisulfate 75 MG TAB ONE (08:29)
--- NOTE | 2017-09-27 08:35 | PRG ---
DATE OF SERVICE: 09/27/2017. SUBJECTIVE: Mr. Matos is a 81-year-old white male with known multiple medical problems, renal cance r with metastasis, recently status post laparoscopic cholecystectomy, and now being followed up by [facility] for his acute kidney injury. His kidney remains unimproved, has been worsening over the last several days. This is in spite of conservative management of salt poor albumin. He has also underlying history of congestive heart failure with decreased EF. This morning he has no new complaints. Shortness of breath is at baseline. PHYSICAL EXAMINATION: VITAL SIGNS: Blood pressure is 122/60, heart rate 90, respiratory rate 16, pulse ox 95%. GENERAL: He is noted to be awake, supine, lethargic, not in overt distress. SKIN: Adequate turgor. HEENT: He has pinkish conjunctivae, anicteric sclerae. NECK: No neck mass, no carotid bruits, no JVD. CHEST: No deformities. LUNGS: Decreased breath sounds. HEART: Normal sinus rhythm. No murmur, no gallops, no rubs. ABDOMEN: Globular, soft, decreased bowel sounds. EXTREMITIES: Positive for edema. MEDICATIONS: 09/27/2017 - Reviewed. LABORATORY: 09/27/2017 - White count 14.3, hemoglobin 10. Sodium 142, potassium 4, chloride 111, ca rbon dioxide 23, BUN 94, creatinine 3.18, glucose 129, AST 12, ALT 7, albumin 3.4. ASSESSMENT AND PLAN: 1. Acute kidney injury - worsening renal dysfunction. The possibility of a superimposed acute tubul ar necrosis remains. The other possibility, this may all be prerenal. Please note that he has recei nilda salt poor albumin. In addition, he has a decreased EF. Continue supportive care. There is no i ndication of any dialytic intervention. I feel that if dialysis would be indicated, this patient wou ld be a poor dialysis candidate. My bias is not to offer it and I will discuss it with the . 2. Congestive heart failure. Cardiology is following. 3. Status post laparoscopic cholecystectomy. He has decreased bowel sounds at the present time. Dora cordoba is following. Overall, prognosis remains guarded. Recheck basic met and CBC in a.m.
--- NOTE | 2017-09-27 09:56 | PRG ---
DATE OF SERVICE: 09/27/2017 Mr. Matos looks a little better today. He wanted his glasses and his hearing aids this morning. He says he feels better. He is less short of breath. PHYSICAL EXAMINATION: VITAL SIGNS: He is afebrile, heart rate 71, respiratory rate 24. Oximetry is 94 on 3 liters, blood pressure 118/58. LUNGS: Clear. CARDIOVASCULAR: Regular rhythm. ABDOMEN: The abdomen is actually remarkable for a few bowel sounds. White count 14.3, hemoglobin 10, platelets 131. Sodium 142, potassium 4, chloride 111, bicarbonate 23, BUN 94, creatinine 3.18. IMPRESSION: 1. Status post resection of gangrenous gallbladder. Pathology confirmed that the gallbladder was ga ngrenous. 2. Metastatic renal cell carcinoma. 3. Extreme deconditioning. 4. Progressive renal insufficiency. I am not sure if dialysis would be beneficial if he reaches a p oint where he needs it. PLAN: Continue supportive care. He still has an NG tube in place.
[2017-09-27] MEDS: Pantoprazole 40 MG VIAL IVP SCH (10:34)
[2017-09-27] MEDS: Apixaban 5 MG TAB PO SCH ×2 (10:35→21:42)
[2017-09-27] MEDS: Ivabradine 5 MG TAB PO SCH ×2 (10:35→21:42)
[2017-09-27] MEDS: Tamsulosin HCl 0.4 MG CAP PO SCH (10:35)
--- NOTE | 2017-09-27 11:40 | PDOC.PN ---
- Subjective Encounter Start Date: 09/27/17 Encounter Start Time: 08:20 still has distended abdomen and has output via NG tube, renal function is worse - Objective Resuscitation Status: Resuscitation Status DNR:Do Not Resuscitate MAR Reviewed: Yes Vital Signs & Weight: Vital Signs (12 hours) Temp Pulse Resp BP Pulse Ox 09/27/17 07:50 97.9 F 91 24 H 118/58 L 94 L 09/27/17 07:36 95 09/27/17 07:35 90 16 95 09/27/17 04:05 96 09/27/17 04:00 98.2 F 84 14 122/60 94 L 09/27/17 00:20 86 20 95 09/27/17 00:00 98.2 F 89 18 122/58 L 95 Weight Admit Weight 202 lb 13.2 oz Weight 235 lb Most Recent Monitor Data Heart Rate from ECG 103 NIBP 108/59 NIBP BP-Mean 79 Respiration from ECG 29 SpO2 94 I&O: 09/26/17 09/27/17 09/28/17 06:59 06:59 06:59 Intake Total 4534 Output Total 2850 Balance 1684 Result Diagrams: 09/27/17 04:58 09/27/17 04:58 EKG Reviewed by me: Yes Phys Exam - Physical Examination Constitutional: NAD HEENT: PERRLA, moist MMs, sclera anicteric NG tube+ Neck: no JVD, supple central line+ Respiratory: no rales, wheezing present Cardiovascular: RRR, no significant murmur Gastrointestinal: soft, non-tender distended Musculoskeletal: no edema, pulses present Neurological: non-focal, normal sensation Lymphatic: no nodes Psychiatric: normal affect Skin: no rash, normal turgor Dx/Plan (1) Acute cholecystitis Code(s): K81.0 - ACUTE CHOLECYSTITIS Status: Acute Comment: s/p lap praveena (2) UTI (urinary tract infection) Status: Ruled-out (3) Atrial fibrillation and flutter Code(s): I48.91 - UNSPECIFIED ATRIAL FIBRILLATION; I48.92 - UNSPECIFIED ATRIAL FLUTTER Status: Chronic Comment: controlled rate (4) BPH (benign prostatic hyperplasia) Code(s): N40.0 - BENIGN PROSTATIC HYPERPLASIA WITHOUT LOWER URINRY TRACT SYMP Status: Chronic (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 Code(s): I50.40 - UNSP COMBINED SYSTOLIC AND DIASTOLIC (CONGESTIVE) HRT FAIL Status: Chronic Qualifiers: Comment: (6) Dyslipidemia Code(s): E78.5 - HYPERLIPIDEMIA, UNSPECIFIED Status: Chronic (7) Hyponatremia Code(s): E87.1 - HYPO-OSMOLALITY AND HYPONATREMIA Status: Chronic Comment: improving (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 Code(s): C78.00 - SECONDARY MALIGNANT NEOPLASM OF UNSPECIFIED LUNG; C64.9 - MALIGNANT NEOPLASM OF UNSP KIDNEY, EXCEPT RENAL PELVIS Status: Chronic Comment: (9) Physical deconditioning Code(s): R53.81 - OTHER MALAISE Status: Chronic (10) Acute kidney failure Status: Acute (11) Respiratory failure, acute Code(s): J96.00 - ACUTE RESPIRATORY FAILURE, UNSP W HYPOXIA OR HYPERCAPNIA Status: Resolved Comment: s/p extubation 09/23 (12) Sepsis with acute organ dysfunction Code(s): A41.9 - SEPSIS, UNSPECIFIED ORGANISM; R65.20 - SEVERE SEPSIS WITHOUT SEPTIC SHOCK Status: Acute (13) Septic shock Code(s): A41.9 - SEPSIS, UNSPECIFIED ORGANISM; R65.21 - SEVERE SEPSIS WITH SEPTIC SHOCK Status: Resolved (14) Ileus following gastrointestinal surgery Code(s): K91.30 - POSTPROC INTESTINAL OBST, UNSP TO PARTIAL VERSUS COMPLETE Status: Acute - Plan cont current plan of care, plan discussed w/ family, continue antibiotics, respiratory therapy * will repeat xray abdomen tomorrow * discussed with dr mir * SB follow through is option but clamping NG tube may cause aspiration from vomiting * cardiac status is stable * renal function is still worse * still has no good bowel sound * will keep NPO * continue NG tube with LIS * will consider TPN if pt does not improve * medication reviewed as below * symptomatic treatment * discussed with family. Review of Systems - Review of Systems Constitutional: negative: Fever, Chills, Sweats, Weakness, Malaise, Other Respiratory: negative: Cough, Dry, Shortness of Breath, Hemoptysis, SOB with Excertion, Pleuritic Pain, Sputum, Wheezing Cardiovascular: negative: Chest Pain, Palpitations, Orthopnea, Paroxysmal Noc. Dyspnea, Edema, Light Headedness, Other Gastrointestinal: negative: Nausea, Vomiting, Abdominal Pain, Diarrhea, Constipation, Melena, Hematochezia, Other Genitourinary: negative: Dysuria, Frequency, Incontinence, Hematuria, Retention , Other Musculoskeletal: negative: Neck Pain, Shoulder Pain, Arm Pain, Back Pain, Hand Pain, Leg Pain, Foot Pain, Other - Medications/Allergies Allergies/Adverse Reactions: Allergies Allergy/AdvReac Type Severity Reaction Status Date / Time [facility] Allergy Verified 09/20/17 14:57 Medications: Current Medications Acetaminophen (Tylenol) 650 mg PO Q4H PRN PRN Reason: Headache/Fever or Pain Last Admin: 09/26/17 03:27 Dose: 650 mg Al Hydroxide/Mg Hydroxide (Maalox) 30 ml PO Q6H PRN PRN Reason: Heartburn or Indigestion Albumin Human (Albumin 25%) 25 gm IVPB 0400,1000,1600,2200 [facility] Stop: 09/28/17 10:01 Last Admin: 09/27/17 10:34 Dose: 25 gm Albuterol/Ipratropium (Duoneb) 3 ml NEB [id number] PRN PRN Reason: SOB &/or Wheezing Albuterol/Ipratropium (Duoneb) 3 ml NEB [id number] [facility] Last Admin: 09/27/17 07:35 Dose: 3 ml Apixaban (Eliquis) 2.5 mg PO BID [facility] Last Admin: 09/27/17 10:35 Dose: 2.5 mg Artificial Tears (Tears Naturale) 0 drop EA EYE PRN PRN PRN Reason: Dry Eyes Atorvastatin Calcium (Lipitor) 10 mg PO HS [facility] Last Admin: 09/26/17 21:41 Dose: 10 mg Guaifenesin (Robitussin Sf) 200 mg PO Q4H PRN PRN Reason: Cough Last Admin: 09/21/17 08:45 Dose: 200 mg Metronidazole 500 mg/ Device 100 mls @ 100 mls/hr IVPB Q8HR [facility] Last Admin: 09/27/17 05:34 Dose: 100 mls Sodium Bicarbonate 50 meq/ (Dextrose/Sodium Chloride) 1,050 mls @ 75 mls/hr IV .Q14H [facility] Last Admin: 09/27/17 00:27 Dose: 1,050 mls Meropenem 500 mg/Miscellaneous Medication 1 each/ Sterile Water 10 mls @ 120 mls/hr SLOW IVP 0800,1600,2359 [facility] Last Admin: 09/27/17 10:34 Dose: 10 mls Ivabradine (Corlanor) 2.5 mg PO BID [facility] Last Admin: 09/27/17 10:35 Dose: 2.5 mg Loperamide HCl (Imodium) 2 mg PO PRN PRN PRN Reason: Diarrhea/Loose Stools Loratadine (Claritin) 10 mg PO DAILYPRN PRN PRN Reason: Sinus Symptoms Magnesium Hydroxide (Milk Of Magnesium) 30 ml PO DAILYPRN PRN PRN Reason: Constipation Mineral Oil/White Petrolatum (Eucerin Cream) 0 gm TOP BIDPRN PRN PRN Reason: Dry Skin Morphine Sulfate (Morphine) 2 mg IVP Q2H PRN PRN Reason: Breakthrough pain Stop: 10/21/17 17:54 Last Admin: 09/22/17 18:50 Dose: 2 mg Ondansetron HCl (Zofran Odt) 4 mg PO Q6H PRN PRN Reason: Nausea/Vomiting Ondansetron HCl (Zofran) 4 mg IVP Q6H PRN PRN Reason: Nausea/Vomiting Last Admin: 09/25/17 07:38 Dose: 4 mg Pantoprazole Sodium (Protonix) 40 mg IVP DAILY [facility] Last Admin: 09/27/17 10:34 Dose: 40 mg Phenol (Chloraseptic [place] 180 Ml Bot) 0 ml PO PRN PRN PRN Reason: Sore Throat Promethazine HCl (Phenergan) 6.25 mg SLOW IVP Q6H PRN PRN Reason: Nausea/Vomiting Last Admin: 09/24/17 03:58 Dose: 6.25 mg Senna (Senokot) 2 tab PO HSPRN PRN PRN Reason: Constipation Sodium Chloride ([place] Nasal [place] 0.65%) 0 ml EA NARE QIDPRN PRN PRN Reason: Nasal Congestion Sodium Chloride (Flush - Normal Saline) 10 ml IVF Q12HR [facility] Last Admin: 09/27/17 10:39 Dose: 10 ml Sodium Chloride (Flush - Normal Saline) 10 ml IVF PRN PRN PRN Reason: Saline Flush Last Admin: 09/24/17 15:32 Dose: 10 ml Tamsulosin HCl (Flomax) 0.4 mg PO DAILY [facility] Last Admin: 09/27/17 10:35 Dose: 0.4 mg
[2017-09-27] MEDS: Morphine 2 MG/ML SYRINGE IVP PRN (12:44)
[2017-09-27] MEDS: Atorvastatin Calcium 10 MG TAB PO SCH (21:42)
[2017-09-28 07:02] LABS: ALT (SGPT) Less than 7 U/L (8-55); AST (SGOT) 12 U/L (5-34); Alkaline Phosphatase 71 U/L (40-150); Anion Gap 14 mmol/L (10-20); BUN (Urea Nitrogen) 100 mg/dL (8.4-25.7); Bilirubin, Total 0.8 mg/dL (0.2-1.2); Calc. Creatinine Clearance 27 mL/min (70-130); Calcium 9.9 mg/dL (7.8-10.44); Carbon Dioxide 23 mmol/L (23-31); Chloride 113 mmol/L (98-107); Estimated GFR-MDRD 18; Globulin 2.3 g/dL (2.4-3.5); Protein, Total 5.6 g/dL (5.8-8.1)
[2017-09-28 07:31] LABS: #Eosinphils 0.5 thou/uL (0.0-0.7); #Monocytes 1.6 thou/uL (0.11-0.59); #Neutrophils 12.8 thou/uL (1.40-6.50); %Eosinophils 3.3 % (0.0-10.0); Hematocrit 37.7 % (42.0-52.0); Hypochromia SLIGHT = 6-15 cells (100X) (0-5/hpf); Mean Platelet Volume 10.3 fL (7.4-10.4); Polychromasia SLIGHT = 2-3 cells (100X) (0-2/hpf); Red Blood Cell (RBC) Count 4.52 mill/uL (4.70-6.10); Target Cells SLIGHT = 2-5 cells (100X) (0-1/hpf); White Blood Cell (WBC) Count 15.8 thou/uL (4.8-10.8)
[2017-09-28] MEDS: metroNIDAZOLE 500 MG in Premix Bag 1 BAG IVPB SCH ×3 (08:13→20:51)
[2017-09-28] MEDS: Tamsulosin HCl 0.4 MG CAP PO SCH (09:18)
[2017-09-28] MEDS: Apixaban 5 MG TAB PO SCH ×2 (09:18→20:46)
[2017-09-28] MEDS: Ivabradine 5 MG TAB PO SCH ×2 (09:19→20:47)
[2017-09-28] MEDS: Pantoprazole 40 MG VIAL IVP SCH (09:19)
--- NOTE | 2017-09-28 09:49 | PRG ---
DATE OF SERVICE: 09/28/2017 RENAL MEDICINE SUBJECTIVE: Mr. Matos is a 81-year-old white male, being followed up by the Renal Service for his ac yohan kidney injury. A presumptive acute tubular necrosis was made. His renal function remains unimpr rossana. I think that his cardiac status is also contributing to the worsening renal dysfunction. I arroyo d a long discussion with the regarding his overall prognosis. Positive Care has been consulted. He remains unimproved in the last several days. He currently has an NG tube, appears he is unable to take p.o. for the moment. Please note, this patient underwent a recent cholecystectomy. Patient de nies any chest pain or worsening shortness of breath. OBJECTIVE: VITAL SIGNS: Blood pressure is 121/56, heart rate 92, respiratory rate 16, temperature is 97.5, puls e ox 97%. GENERAL EXAM: Patient is sleeping, but arousable and comfortable. SKIN: Adequate turgor. HEENT: Pinkish conjunctivae. Anicteric sclerae. Positive for NG tube. NECK: No neck mass, no carotid bruits, no JVD. CHEST: No deformities. LUNGS: Decreased breath sounds. No wheezing and no crackles heard. HEART: Normal sinus rhythm. No murmur, no gallops, no rubs. ABDOMEN: Globular, soft, nontender, no masses. EXTREMITIES: Trace edema. MEDICATIONS: Medications of 09/28/2017 reviewed. LABORATORY DATA: Laboratories of 09/28/2017, white count 15.8, hemoglobin 10.6, sodium 146, potassiu m 4, chloride 113, carbon dioxide 23, BUN 100, creatinine 3.29, glucose 127, AST 12, ALT less than 7, albumin 2.3. ASSESSMENT AND PLAN: 1. Acute kidney injury -- presumptive acute tubular necrosis. Continue supportive care. No indicat ion for any dialytic intervention. I did discuss the case with the . Should the renal function worsen, may need dialytic intervention. I did tell her he is not a good candidate for dialysis. She has agreed that we should not offer dialysis with the patient. 2. Congestive heart failure -- stable. Unclear if this patient will need dobutamine. Cardiology is following. 3. Distended abdomen -- patient may have an ileus. Surgery is following. An NG tube was inserted. Overall, prognosis remains guarded with this patient.
[2017-09-28] MEDS: Meropenem 500 MG, Admixture Fee 1 EACH in Sterile Water 10 ML SLOW IVP SCH ×2 (10:27→17:16)
--- NOTE | 2017-09-28 11:23 | RAD ---
KUB: INDICATION: Small bowel obstruction versus ileus. COMPARISON: Prior exam dated 09/26/17. FINDINGS: Gastric catheter projects in the region of the distal gastric antrum. There remain dilated loops of small bowel within the central abdomen. Barium contrast is seen within ducts of the colon. Cholecys tectomy clips are seen within the right upper quadrant. No definite free air is evident on this supi ne image. IMPRESSION: Persistent small bowel dilatation with some gas present within the right hemicolon suspicious for at least a moderate-grade small bowel obstruction. The extent of the obstruction appears similar to the comparison study. POS: [facility]
--- NOTE | 2017-09-28 11:44 | PRG ---
DATE OF SERVICE: 09/28/2017 SUBJECTIVE: Mr. Matos denies pain or nausea today. His says that he frequently asks for ice ch ips. His NG tube is in place, draining dark bilious fluid. His abdomen is distended, but soft and n ontender. He has very rare bowel sounds. His urine has a dark bloody appearance, although this appe ars to be old. There is no fresh blood in the tubing or bag. He has been afebrile, maintaining sats on 3 liters of oxygen and with a normal blood pressure. His urine output has gone down and he had 4 00 yesterday. White count is 15,000, which is about what it has been and hemoglobin is stable at 10. 6. BUN and creatinine continue to slowly rise and are 103.29 today. ASSESSMENT: Metastatic renal cell carcinoma, status post cholecystectomy for gangrenosum. The gallb ladder now with the multifactorial ileus. He unfortunately has worsening renal failure. He and his have decided against dialysis and CPR, but are not yet ready to consider hospice. At this point , his ileus is the main difficulty in getting him out of the hospital since he cannot go to a fdc with an NG tube. Hopefully, this will resolve since options for treatment are limited. A pall iative care team is involved and his prognosis is very poor.
--- NOTE | 2017-09-28 12:13 | PDOC.PN ---
- Subjective Encounter Start Date: 09/28/17 Encounter Start Time: 09:20 pt is very weak, he denies any complaint, but he is very short of breath, he is lethargic, bedside renal function is worse, he is not having BS or not passing gas, pt is anuric - Objective Resuscitation Status: Resuscitation Status DNR:Do Not Resuscitate MAR Reviewed: Yes Vital Signs & Weight: Vital Signs (12 hours) Temp Pulse Resp BP Pulse Ox 09/28/17 11:14 99.2 F 101 H 28 H 128/61 93 L 09/28/17 06:59 92 16 97 09/28/17 04:10 22 H 96 09/28/17 04:00 97.5 F L 94 31 H 121/56 L 93 L 09/28/17 00:25 91 16 96 Weight Admit Weight 202 lb 13.2 oz Weight 232 lb 3.2 oz Most Recent Monitor Data Heart Rate from ECG 103 NIBP 108/59 NIBP BP-Mean 79 Respiration from ECG 29 SpO2 94 I&O: 09/27/17 09/28/17 09/29/17 06:59 06:59 06:59 Intake Total 4534 3080 Output Total 2850 1250 Balance 1684 1830 Result Diagrams: 09/28/17 06:19 09/28/17 06:19 Radiology Reviewed by me: Yes (xray abdomen) EKG Reviewed by me: Yes (afib) Phys Exam - Physical Examination Constitutional: NAD HEENT: PERRLA, sclera anicteric NG tube with LIS, dry MM Neck: no JVD, supple Respiratory: wheezing present reduced air entry Cardiovascular: no significant murmur, no rub, irregular Gastrointestinal: soft distended, NO BS Musculoskeletal: pulses present trace edema, suarez+ Neurological: moves all 4 limbs Lymphatic: no nodes Psychiatric: normal affect Skin: no rash, normal turgor Dx/Plan (1) Acute cholecystitis Code(s): K81.0 - ACUTE CHOLECYSTITIS Status: Acute Comment: s/p lap praveena (2) UTI (urinary tract infection) Status: Ruled-out (3) Atrial fibrillation and flutter Code(s): I48.91 - UNSPECIFIED ATRIAL FIBRILLATION; I48.92 - UNSPECIFIED ATRIAL FLUTTER Status: Chronic Comment: controlled rate (4) BPH (benign prostatic hyperplasia) Code(s): N40.0 - BENIGN PROSTATIC HYPERPLASIA WITHOUT LOWER URINRY TRACT SYMP Status: Chronic (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 Code(s): I50.40 - UNSP COMBINED SYSTOLIC AND DIASTOLIC (CONGESTIVE) HRT FAIL Status: Chronic Qualifiers: Comment: (6) Dyslipidemia Code(s): E78.5 - HYPERLIPIDEMIA, UNSPECIFIED Status: Chronic (7) Hyponatremia Code(s): E87.1 - HYPO-OSMOLALITY AND HYPONATREMIA Status: Chronic Comment: improving (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 Code(s): C78.00 - SECONDARY MALIGNANT NEOPLASM OF UNSPECIFIED LUNG; C64.9 - MALIGNANT NEOPLASM OF UNSP KIDNEY, EXCEPT RENAL PELVIS Status: Chronic Comment: (9) Physical deconditioning Code(s): R53.81 - OTHER MALAISE Status: Chronic (10) Acute kidney failure Status: Acute (11) Respiratory failure, acute Code(s): J96.00 - ACUTE RESPIRATORY FAILURE, UNSP W HYPOXIA OR HYPERCAPNIA Status: Resolved Comment: s/p extubation 09/23 (12) Sepsis with acute organ dysfunction Code(s): A41.9 - SEPSIS, UNSPECIFIED ORGANISM; R65.20 - SEVERE SEPSIS WITHOUT SEPTIC SHOCK Status: Acute (13) Septic shock Code(s): A41.9 - SEPSIS, UNSPECIFIED ORGANISM; R65.21 - SEVERE SEPSIS WITH SEPTIC SHOCK Status: Resolved (14) Ileus following gastrointestinal surgery Code(s): K91.30 - POSTPROC INTESTINAL OBST, UNSP TO PARTIAL VERSUS COMPLETE Status: Acute - Plan cont current plan of care, plan discussed w/ family, suarez catheter, continue antibiotics, respiratory therapy * pt's does not like option of HD if needed * she wanted to see another day or two before she will make her mind about hospice * his prognosis is very poor * will keep NPO and continue NG tube with LIS * his renal function still on peak phase * continue IVF with bicarbonate * continue respi therapy * doubt pt can tolerate more fluid or TPN. Review of Systems - Review of Systems Other: unable to review with pt as pt is lethargic and very weak, not co-operating with talking - Medications/Allergies Allergies/Adverse Reactions: Allergies Allergy/AdvReac Type Severity Reaction Status Date / Time pazopanib [From Votrient] Allergy Verified 09/20/17 14:57 Medications: Current Medications Acetaminophen (Tylenol) 650 mg PO Q4H PRN PRN Reason: Headache/Fever or Pain Last Admin: 09/26/17 03:27 Dose: 650 mg Al Hydroxide/Mg Hydroxide (Maalox) 30 ml PO Q6H PRN PRN Reason: Heartburn or Indigestion Albuterol/Ipratropium (Duoneb) 3 ml NEB [id number] PRN PRN Reason: SOB &/or Wheezing Albuterol/Ipratropium (Duoneb) 3 ml NEB [id number] [facility] Last Admin: 09/28/17 06:59 Dose: 3 ml Apixaban (Eliquis) 2.5 mg PO BID [facility] Last Admin: 09/28/17 09:18 Dose: 2.5 mg Artificial Tears (Tears Naturale) 0 drop EA EYE PRN PRN PRN Reason: Dry Eyes Atorvastatin Calcium (Lipitor) 10 mg PO HS [facility] Last Admin: 09/27/17 21:42 Dose: 10 mg Guaifenesin (Robitussin Sf) 200 mg PO Q4H PRN PRN Reason: Cough Last Admin: 09/21/17 08:45 Dose: 200 mg Metronidazole 500 mg/ Device 100 mls @ 100 mls/hr IVPB Q8HR [facility] Last Admin: 09/28/17 08:13 Dose: 100 mls Sodium Bicarbonate 50 meq/ (Dextrose/Sodium Chloride) 1,050 mls @ 75 mls/hr IV .Q14H [facility] Last Admin: 09/28/17 09:20 Dose: 1,050 mls Meropenem 500 mg/Miscellaneous Medication 1 each/ Sterile Water 10 mls @ 120 mls/hr SLOW IVP 0800,1600,2359 [facility] Last Admin: 09/28/17 10:27 Dose: 10 mls Ivabradine (Corlanor) 2.5 mg PO BID [facility] Last Admin: 09/28/17 09:19 Dose: 2.5 mg Loperamide HCl (Imodium) 2 mg PO PRN PRN PRN Reason: Diarrhea/Loose Stools Loratadine (Claritin) 10 mg PO DAILYPRN PRN PRN Reason: Sinus Symptoms Magnesium Hydroxide (Milk Of Magnesium) 30 ml PO DAILYPRN PRN PRN Reason: Constipation Mineral Oil/White Petrolatum (Eucerin Cream) 0 gm TOP BIDPRN PRN PRN Reason: Dry Skin Morphine Sulfate (Morphine) 2 mg IVP Q2H PRN PRN Reason: Breakthrough pain Stop: 10/21/17 17:54 Last Admin: 09/27/17 12:44 Dose: 2 mg Ondansetron HCl (Zofran Odt) 4 mg PO Q6H PRN PRN Reason: Nausea/Vomiting Ondansetron HCl (Zofran) 4 mg IVP Q6H PRN PRN Reason: Nausea/Vomiting Last Admin: 09/25/17 07:38 Dose: 4 mg Pantoprazole Sodium (Protonix) 40 mg IVP DAILY [facility] Last Admin: 09/28/17 09:19 Dose: 40 mg Phenol (Chloraseptic [place] 180 Ml Bot) 0 ml PO PRN PRN PRN Reason: Sore Throat Promethazine HCl (Phenergan) 6.25 mg SLOW IVP Q6H PRN PRN Reason: Nausea/Vomiting Last Admin: 09/24/17 03:58 Dose: 6.25 mg Senna (Senokot) 2 tab PO HSPRN PRN PRN Reason: Constipation Sodium Chloride ([place] Nasal [place] 0.65%) 0 ml EA NARE QIDPRN PRN PRN Reason: Nasal Congestion Sodium Chloride (Flush - Normal Saline) 10 ml IVF Q12HR [facility] Last Admin: 09/28/17 09:19 Dose: 10 ml Sodium Chloride (Flush - Normal Saline) 10 ml IVF PRN PRN PRN Reason: Saline Flush Last Admin: 09/28/17 10:28 Dose: 10 ml Tamsulosin HCl (Flomax) 0.4 mg PO DAILY [facility] Last Admin: 09/28/17 09:18 Dose: 0.4 mg
[2017-09-28 14:18] VITALS: BMI 32.3
[2017-09-28] MEDS: Acetaminophen 325 MG TAB PO PRN (16:20)
--- NOTE | 2017-09-28 16:59 | PRG ---
DATE OF SERVICE: 09/28/2017 SUBJECTIVE: The patient looks weaker today. OBJECTIVE: VITAL SIGNS: He is afebrile, heart rate 86, respiratory rate 16, oximetry is 93 on 3 liters, blood p ressure 137/57. Intake and output is positive 1830. LUNGS: Clear anteriorly. HEART: Regular rhythm. ABDOMEN: Soft. LABS: Sodium 146, potassium 4, chloride 113, bicarb 23, BUN 100, creatinine 3.29. White count 15.8, hemoglobin 10.6, and platelets 180. IMPRESSION: 1. Status post resection of gangrenous gallbladder. 2. Acute kidney injury on top of chronic renal disease. 3. Stage IV progressive metastatic renal cell carcinoma. 4. Cardiomyopathy. 5. History of anticoagulation with a requirement for reduction in anticoagulant dosing secondary to gross hematuria. 6. 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 7. History of thromboembolic disease, now on prophylactic dose anticoagulants, has been reasonably s table with this. 8. Volume overload. He is getting more edematous each day. His intake and output since the 16 is over 10 liters positive. Obviously diuresis is not an option . His weakness and deconditioning are biggest factors. Placing him in the neuro chair may help a lit tle bit, but overall I am not sure he will survive to be discharged from the hospital. I have discussed this with the . I have also discussed this with Dr. Grider.
[2017-09-28] MEDS: Atorvastatin Calcium 10 MG TAB PO SCH (20:46)
[2017-09-28] MEDS ORDERED: Morphine 4 MG/ML VIAL SLOW IVP PRN (23:17)
[2017-09-29] MEDS: Meropenem 500 MG, Admixture Fee 1 EACH in Sterile Water 10 ML SLOW IVP SCH ×3 (00:14→17:45)
[2017-09-29] MEDS: metroNIDAZOLE 500 MG in Premix Bag 1 BAG IVPB SCH ×3 (05:49→22:12)
[2017-09-29 06:48] LABS: ALT (SGPT) Less than 7 U/L (8-55); AST (SGOT) 12 U/L (5-34); Alkaline Phosphatase 73 U/L (40-150); Anion Gap 14 mmol/L (10-20); BUN (Urea Nitrogen) 106 mg/dL (8.4-25.7); Bilirubin, Total 0.9 mg/dL (0.2-1.2); Calc. Creatinine Clearance 28 mL/min (70-130); Calcium 9.5 mg/dL (7.8-10.44); Carbon Dioxide 23 mmol/L (23-31); Chloride 115 mmol/L (98-107); Estimated GFR-MDRD 19; Globulin 2.4 g/dL (2.4-3.5); Protein, Total 5.3 g/dL (5.8-8.1)
[2017-09-29 07:09] LABS: #Eosinphils 0.4 thou/uL (0.0-0.7); #Lymphocytes 0.9 thou/uL (1.20-3.40); #Monocytes 1.4 thou/uL (0.11-0.59); #Neutrophils 13.5 thou/uL (1.40-6.50); %Basophils 0.1 % (0.0-1.0); %Eosinophils 2.7 % (0.0-10.0); %Lymphocytes 5.8 % (21.0-51.0); %Monocytes 8.3 % (0.0-10.0); Hematocrit 36.6 % (42.0-52.0); Red Blood Cell (RBC) Count 4.43 mill/uL (4.70-6.10); White Blood Cell (WBC) Count 16.3 thou/uL (4.8-10.8)
[2017-09-29 07:44] LABS: Anisocytosis MODERATE=16-30 cells (100X) (0-5/hpf); Polychromasia MODERATE = 3-4 cells (100X) (0-2/hpf); Target Cells SLIGHT = 2-5 cells (100X) (0-1/hpf)
[2017-09-29] MEDS: Ivabradine 5 MG TAB PO SCH ×2 (08:39→20:11)
[2017-09-29] MEDS: Apixaban 5 MG TAB PO SCH ×2 (08:40→20:11)
[2017-09-29] MEDS: Tamsulosin HCl 0.4 MG CAP PO SCH (08:40)
--- NOTE | 2017-09-29 08:48 | PRG ---
DATE OF SERVICE: 09/29/2017 SUBJECTIVE: Mr. Matos is a 81-year-old white male being followed by the Renal Service for his acute kidney injury secondary to presumed acute tubular necrosis. The patient remains unchanged. He is essentially unimproved. He feels weak and has not been tolerating p.o. intake. He has an NG tube at the present time. I have discussed the possibility that he may need hospice care. The case also discussed with his academic specialist. PHYSICAL EXAMINATION: VITAL SIGNS: Blood pressure is 121/52, heart rate 85, respiratory rate 22, temperature 98.7, pulse ox 93%. GENERAL: Noted to be awake, lethargic, minimally responsive. SKIN: Decreased turgor. HEENT: Slightly pale conjunctivae, anicteric sclerae. NECK: No neck mass, no carotid bruits, no JVD. CHEST: No deformities. LUNGS: Decreased breath sounds. HEART: Normal sinus rhythm. No murmur, no gallops, no rubs. ABDOMEN: Globular, soft, nontender. EXTREMITIES: No edema, no deformities. MEDICATIONS: 09/29/2017 - Reviewed. LABORATORY: 09/29/2017 - White count 16.2, hemoglobin 10.8, sodium 148, potassium 2.6, chloride 115, carbon dioxide 38, BUN 106, creatinine 3.19, GFR 19 mL per minute, glucose 135, albumin 2.9. ASSESSMENT AND PLAN: 1. Acute kidney injury - secondary to presumed ischemic acute tubular necrosis. Renal function seems to have stabilized this morning. Creatinine is 3.19, which is minimally improved from yesterday's value of 3.29. There is no indication for any dialytic intervention. Overall, I have discussed the case with the patient's that he is not a dialysis candidate due to his multiple comorbid problems and overall medical status. 2. Congestive heart failure, stable. Clinically asymptomatic. 3. Anemia. Continue supportive care. Again, we discussed about hospice with the patient's . Addendum: Case discussed with Dr. Ann - bigg Henry HF - start lasix 40 mg IV q 12 MTDD
[2017-09-29] MEDS: Pantoprazole 40 MG VIAL IVP SCH (08:54)
[2017-09-29] MEDS ORDERED: Acetaminophen 1,000 MG in Premix Bag 1 BAG IVPB PRN (09:07)
[2017-09-29] MEDS ORDERED: Furosemide 40 MG/4 ML VIAL SLOW IVP SCH ×2 (10:11→11:15)
--- NOTE | 2017-09-29 11:45 | PDOC.PN ---
- Subjective Encounter Start Date: 09/29/17 Encounter Start Time: 07:50 pt is lethargic, last night he told his that he wanted to , his renal function now tended down, but still has not passed gas or have any BM or BS, bedside, pt is very weak, pt is now bothered by NG tube - Objective Resuscitation Status: Resuscitation Status DNR:Do Not Resuscitate MAR Reviewed: Yes Vital Signs & Weight: Vital Signs (12 hours) Temp Pulse Resp BP Pulse Ox 09/29/17 10:50 98.2 F 77 15 120/59 L 98 09/29/17 08:35 98.0 F 82 22 H 121/59 L 99 09/29/17 07:44 84 20 94 L 09/29/17 04:00 98.7 F 85 22 H 121/52 L 93 L 09/29/17 03:55 92 28 H 79 L Weight Admit Weight 202 lb 13.2 oz Weight 234 lb 4.8 oz Most Recent Monitor Data Heart Rate from ECG 103 NIBP 108/59 NIBP BP-Mean 79 Respiration from ECG 29 SpO2 94 I&O: 09/28/17 09/29/17 09/30/17 06:59 06:59 06:59 Intake Total 3080 2604 Output Total 1250 1080 Balance 1830 1524 Result Diagrams: 09/29/17 05:29 09/29/17 05:29 Radiology Reviewed by me: Yes EKG Reviewed by me: Yes (afib) Phys Exam - Physical Examination Constitutional: NAD weak, lethargic HEENT: PERRLA, sclera anicteric dry MM, NG tube Neck: no JVD, supple central line+ Respiratory: no wheezing, no rales, no rhonchi reduced air entry both base Cardiovascular: no significant murmur, irregular Gastrointestinal: soft distended, no BS Musculoskeletal: pulses present, edema present Neurological: moves all 4 limbs Lymphatic: no nodes Psychiatric: normal affect Skin: no rash, normal turgor Dx/Plan (1) Acute cholecystitis Code(s): K81.0 - ACUTE CHOLECYSTITIS Status: Acute Comment: s/p lap praveena (2) UTI (urinary tract infection) Status: Ruled-out (3) Atrial fibrillation and flutter Code(s): I48.91 - UNSPECIFIED ATRIAL FIBRILLATION; I48.92 - UNSPECIFIED ATRIAL FLUTTER Status: Chronic Comment: controlled rate (4) BPH (benign prostatic hyperplasia) Code(s): N40.0 - BENIGN PROSTATIC HYPERPLASIA WITHOUT LOWER URINRY TRACT SYMP Status: Chronic (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 Code(s): I50.40 - UNSP COMBINED SYSTOLIC AND DIASTOLIC (CONGESTIVE) HRT FAIL Status: Chronic Qualifiers: Comment: (6) Dyslipidemia Code(s): E78.5 - HYPERLIPIDEMIA, UNSPECIFIED Status: Chronic (7) Hyponatremia Code(s): E87.1 - HYPO-OSMOLALITY AND HYPONATREMIA Status: Chronic Comment: improving (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 Code(s): C78.00 - SECONDARY MALIGNANT NEOPLASM OF UNSPECIFIED LUNG; C64.9 - MALIGNANT NEOPLASM OF UNSP KIDNEY, EXCEPT RENAL PELVIS Status: Chronic Comment: (9) Physical deconditioning Code(s): R53.81 - OTHER MALAISE Status: Chronic (10) Acute kidney failure Status: Acute (11) Respiratory failure, acute Code(s): J96.00 - ACUTE RESPIRATORY FAILURE, UNSP W HYPOXIA OR HYPERCAPNIA Status: Resolved Comment: s/p extubation 09/23 (12) Sepsis with acute organ dysfunction Code(s): A41.9 - SEPSIS, UNSPECIFIED ORGANISM; R65.20 - SEVERE SEPSIS WITHOUT SEPTIC SHOCK Status: Acute (13) Septic shock Code(s): A41.9 - SEPSIS, UNSPECIFIED ORGANISM; R65.21 - SEVERE SEPSIS WITH SEPTIC SHOCK Status: Resolved (14) Ileus following gastrointestinal surgery Code(s): K91.30 - POSTPROC INTESTINAL OBST, UNSP TO PARTIAL VERSUS COMPLETE Status: Acute - Plan cont current plan of care, plan discussed w/ family, continue antibiotics, social media community manager * pt does not need HD as renal function now tended down but pt is still anuric. * today I spoke with about goal of care and she is realistic but wanted to give another day or 2 to make decision regarding hospice * continue empiric antibiotics as per renal dose * continue supportive care * will get xray abdomen * medication reviewed as below * symptomatic treatment * prognosis is very poor Review of Systems - Review of Systems Other: pt is unable to participate with ROS - Medications/Allergies Allergies/Adverse Reactions: Allergies Allergy/AdvReac Type Severity Reaction Status Date / Time pazopanib [From Votrient] Allergy Verified 09/20/17 14:57 Medications: Current Medications Acetaminophen (Tylenol) 650 mg PO Q4H PRN PRN Reason: Headache/Fever or Pain Last Admin: 09/28/17 16:20 Dose: 650 mg Al Hydroxide/Mg Hydroxide (Maalox) 30 ml PO Q6H PRN PRN Reason: Heartburn or Indigestion Albuterol/Ipratropium (Duoneb) 3 ml NEB [id number] PRN PRN Reason: SOB &/or Wheezing Albuterol/Ipratropium (Duoneb) 3 ml NEB [id number] [facility] Last Admin: 09/29/17 07:44 Dose: 3 ml Apixaban (Eliquis) 2.5 mg PO BID [facility] Last Admin: 09/29/17 08:40 Dose: 2.5 mg Artificial Tears (Tears Naturale) 0 drop EA EYE PRN PRN PRN Reason: Dry Eyes Atorvastatin Calcium (Lipitor) 10 mg PO HS [facility] Last Admin: 09/28/17 20:46 Dose: 10 mg Furosemide (Lasix) 40 mg SLOW IVP Q12HR [facility] Furosemide (Lasix) 40 mg SLOW IVP 1115 [facility] Stop: 09/29/17 13:00 Last Admin: 09/29/17 11:20 Dose: 40 mg Guaifenesin (Robitussin Sf) 200 mg PO Q4H PRN PRN Reason: Cough Last Admin: 09/21/17 08:45 Dose: 200 mg Metronidazole 500 mg/ Device 100 mls @ 100 mls/hr IVPB Q8HR [facility] Last Admin: 09/29/17 05:49 Dose: 100 mls Meropenem 500 mg/Miscellaneous Medication 1 each/ Sterile Water 10 mls @ 120 mls/hr SLOW IVP 0800,1600,2359 [facility] Last Admin: 09/29/17 08:38 Dose: 10 mls Acetaminophen 1,000 mg/ Device 100 mls @ 400 mls/hr IVPB Q6H PRN PRN Reason: Headache/Fever or Pain Stop: 09/30/17 09:08 Sodium Bicarbonate 50 meq/ (Dextrose/Sodium Chloride) 1,050 mls @ 20 mls/hr IV .Q24H [facility] Last Admin: 09/29/17 11:21 Dose: Not Given Ivabradine (Corlanor) 2.5 mg PO BID [facility] Last Admin: 09/29/17 08:39 Dose: 2.5 mg Loperamide HCl (Imodium) 2 mg PO PRN PRN PRN Reason: Diarrhea/Loose Stools Loratadine (Claritin) 10 mg PO DAILYPRN PRN PRN Reason: Sinus Symptoms Magnesium Hydroxide (Milk Of Magnesium) 30 ml PO DAILYPRN PRN PRN Reason: Constipation Mineral Oil/White Petrolatum (Eucerin Cream) 0 gm TOP BIDPRN PRN PRN Reason: Dry Skin Morphine Sulfate (Morphine) 2 mg SLOW IVP Q2H PRN PRN Reason: Breakthrough pain Stop: 10/21/17 17:54 Last Admin: 09/28/17 23:24 Dose: 2 mg Ondansetron HCl (Zofran Odt) 4 mg PO Q6H PRN PRN Reason: Nausea/Vomiting Ondansetron HCl (Zofran) 4 mg IVP Q6H PRN PRN Reason: Nausea/Vomiting Last Admin: 09/25/17 07:38 Dose: 4 mg Pantoprazole Sodium (Protonix) 40 mg IVP DAILY [facility] Last Admin: 09/29/17 08:54 Dose: 40 mg Phenol (Chloraseptic [place] 180 Ml Bot) 0 ml PO PRN PRN PRN Reason: Sore Throat Promethazine HCl (Phenergan) 6.25 mg SLOW IVP Q6H PRN PRN Reason: Nausea/Vomiting Last Admin: 09/24/17 03:58 Dose: 6.25 mg Senna (Senokot) 2 tab PO HSPRN PRN PRN Reason: Constipation Sodium Chloride ([place] Nasal [place] 0.65%) 0 ml EA NARE QIDPRN PRN PRN Reason: Nasal Congestion Sodium Chloride (Flush - Normal Saline) 10 ml IVF Q12HR [facility] Last Admin: 09/29/17 08:39 Dose: 10 ml Sodium Chloride (Flush - Normal Saline) 10 ml IVF PRN PRN PRN Reason: Saline Flush Last Admin: 09/29/17 11:20 Dose: 10 ml Tamsulosin HCl (Flomax) 0.4 mg PO DAILY [facility] Last Admin: 09/29/17 08:40 Dose: 0.4 mg
[2017-09-29] MEDS ORDERED: Acetaminophen 1,000 MG in Premix Bag 1 BAG IVPB SCH (12:00)
--- NOTE | 2017-09-29 12:37 | RAD ---
RADIOGRAPH ABDOMEN 1 VIEW: DATE: 09/29/17. TIME: 12:10 p.m. HISTORY: Abdominal distention. COMPARISON: 09/28/17, 9:48 a.m. FINDINGS: The previously demonstrated NG tube, with distal tip at midline in the mid to distal stomach, remains . There is little or no gas in the stomach, and no evidence of gastric distention. Multiple dilated small bowel loops located centrally, are again noted. Moderate to severe DJD of right hip. No elissa r interval change. IMPRESSION: 1. Abnormal bowel gas pattern: evidence for small bowel obstruction. 2. Nasogastric tube. 3. Severe osteoarthrosis of the right hip. 4. No interval change. POS: [facility]
--- NOTE | 2017-09-29 13:56 | PRG ---
DATE OF SERVICE: 09/29/2017 SUBJECTIVE: Mr. Matos continues to look very weak. He does not looking better and may be looks a li ttle more fatigued today. I sat and talked to his for about 20 minutes and during the entire co nversation, he kept open his eyes and falling back asleep. He acknowledges that he is tired. OBJECTIVE: VITAL SIGNS: He is afebrile. Heart rate is 84, respiratory rate is 20, oximetry is 94% on 3 liters and blood pressure 121/52. Intake and output is positive another 1524. LUNGS: Remarkable for coarse equal breath sounds. He has some accessory muscles today. HEART: Reg ular rhythm. ABDOMEN: Soft. EXTREMITIES: With edema. LABORATORY DATA: White count 16.3, hemoglobin 10.8 and platelets 109,000. Sodium 148, potassium 3.6, chloride 115, bicarbonate 23, BUN 106 and creatinine 3.19. ASSESSMENT AND PLAN: I discussed the above with Dr. Lowe. At this point in time, I do not think we c an continue to give him IV fluids. I suspect he would not tolerate any more positive volume days. Colby Lowe thought that we could start him on some Lasix every 12 hours and I have cut his fluids back to TKO. Hopefully, we will see some improvement. I did hear some bowel sounds, but they are faint and infrequent. General Surgery will decide the timing and removal of the gastric tube.
--- NOTE | 2017-09-29 15:33 | PRG ---
DATE OF SERVICE: 09/29/2017 SUBJECTIVE: Mike Matos is on telemetry still. His NG tube is in place. OBJECTIVE: VITAL SIGNS: Temperature 98.2 degrees, heart rate 87, blood pressure 130/64. NG tube output in the last 24 hours is 580. HEENT: No bowel movements are reported. LUNGS: Clear to auscultation. CARDIAC: Regular rate and rhythm. ABDOMEN: Good bowel sounds. Mildly distended. EXTREMITIES: Unremarkable. ASSESSMENT AND PLAN: 1. Metastatic renal cell carcinoma. 2. DO NOT RESUSCITATE status. 2. Ileus, good bowel sounds, now resolved. We will obtain a small bowel follow through in the [facility] ng to rule out significant obstruction. We will await these studies.
[2017-09-29] MEDS: Atorvastatin Calcium 10 MG TAB PO SCH (20:11)
[2017-09-29] MEDS: Furosemide 40 MG/4 ML VIAL SLOW IVP SCH (20:11)
[2017-09-30] MEDS: Meropenem 500 MG, Admixture Fee 1 EACH in Sterile Water 10 ML SLOW IVP SCH ×3 (01:26→16:46)
[2017-09-30] MEDS: metroNIDAZOLE 500 MG in Premix Bag 1 BAG IVPB SCH ×2 (06:23→14:40)
[2017-09-30 07:28] LABS: #Basophils 0.1 thou/uL (0.0-0.2); #Eosinphils 0.5 thou/uL (0.0-0.7); #Monocytes 1.1 thou/uL (0.11-0.59); #Neutrophils 12.9 thou/uL (1.40-6.50); %Basophils 0.4 % (0.0-1.0); %Eosinophils 3.2 % (0.0-10.0); %Lymphocytes 6.7 % (21.0-51.0); %Monocytes 7.2 % (0.0-10.0); Hematocrit 41.6 % (42.0-52.0); Mean Platelet Volume 9.9 fL (7.4-10.4); Red Blood Cell (RBC) Count 4.94 mill/uL (4.70-6.10); White Blood Cell (WBC) Count 15.6 thou/uL (4.8-10.8)
[2017-09-30 07:49] LABS: ALT (SGPT) Less than 7 U/L (8-55); AST (SGOT) 13 U/L (5-34); Alkaline Phosphatase 75 U/L (40-150); Anion Gap 14 mmol/L (10-20); BUN (Urea Nitrogen) 117 mg/dL (8.4-25.7); Bilirubin, Total 0.8 mg/dL (0.2-1.2); Calc. Creatinine Clearance 27 mL/min (70-130); Carbon Dioxide 24 mmol/L (23-31); Chloride 116 mmol/L (98-107); Estimated GFR-MDRD 18; Globulin 2.7 g/dL (2.4-3.5); Magnesium 2.4 mg/dL (1.6-2.6); Protein, Total 5.4 g/dL (5.8-8.1)
[2017-09-30 09:06] LABS: Bite Cells SLIGHT = 2-5 cells (100X) (0-1/hpf); Hypochromia MODERATE=16-30 cells (100X) (0-5/hpf); Polychromasia MODERATE = 3-4 cells (100X) (0-2/hpf); Spherocytes SLIGHT = 1-5 cells (100X) (None Seen); Target Cells MODERATE= 6-15 cells (100X) (0-1/hpf)
--- NOTE | 2017-09-30 10:32 | PDOC.PN ---
- Subjective Encounter Start Date: 09/30/17 Encounter Start Time: 07:30 Patient seen and examined. No new complaints. No overnight events pt is very weak, - Objective Resuscitation Status: Resuscitation Status DNR:Do Not Resuscitate MAR Reviewed: Yes Vital Signs & Weight: Vital Signs (12 hours) Temp Pulse Resp BP Pulse Ox 09/30/17 04:00 98.2 F 82 20 119/58 L 94 L 09/30/17 00:39 76 20 95 Weight Admit Weight 202 lb 13.2 oz Weight 231 lb 14.4 oz Most Recent Monitor Data Heart Rate from ECG 103 NIBP 108/59 NIBP BP-Mean 79 Respiration from ECG 29 SpO2 94 I&O: 09/29/17 09/30/17 10/01/17 06:59 06:59 06:59 Intake Total 2604 1862 Output Total 1080 1100 Balance 1524 762 Result Diagrams: 09/30/17 07:22 09/30/17 07:22 EKG Reviewed by me: Yes (afib) Phys Exam - Physical Examination Constitutional: NAD HEENT: PERRLA, sclera anicteric NG tube+ Neck: no JVD, supple Respiratory: no wheezing, no rhonchi reduced air entry at base Cardiovascular: no significant murmur, irregular Gastrointestinal: soft distended, sluggish bowel sound Musculoskeletal: pulses present, edema present Neurological: non-focal, normal sensation Lymphatic: no nodes Psychiatric: normal affect Skin: no rash, normal turgor Dx/Plan (1) Acute cholecystitis Code(s): K81.0 - ACUTE CHOLECYSTITIS Status: Acute Comment: s/p lap praveena (2) UTI (urinary tract infection) Status: Ruled-out (3) Atrial fibrillation and flutter Code(s): I48.91 - UNSPECIFIED ATRIAL FIBRILLATION; I48.92 - UNSPECIFIED ATRIAL FLUTTER Status: Chronic Comment: controlled rate (4) BPH (benign prostatic hyperplasia) Code(s): N40.0 - BENIGN PROSTATIC HYPERPLASIA WITHOUT LOWER URINRY TRACT SYMP Status: Chronic (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 Code(s): I50.40 - UNSP COMBINED SYSTOLIC AND DIASTOLIC (CONGESTIVE) HRT FAIL Status: Chronic Qualifiers: Comment: (6) Dyslipidemia Code(s): E78.5 - HYPERLIPIDEMIA, UNSPECIFIED Status: Chronic (7) Metastatic renal cell carcinoma to lung Code(s): C78.00 - SECONDARY MALIGNANT NEOPLASM OF UNSPECIFIED LUNG; C64.9 - MALIGNANT NEOPLASM OF UNSP KIDNEY, EXCEPT RENAL PELVIS Status: Chronic Comment: (8) Physical deconditioning Code(s): R53.81 - OTHER MALAISE Status: Chronic (9) Acute kidney failure Status: Acute (10) Respiratory failure, acute Code(s): J96.00 - ACUTE RESPIRATORY FAILURE, UNSP W HYPOXIA OR HYPERCAPNIA Status: Resolved Comment: s/p extubation 09/23 (11) Sepsis with acute organ dysfunction Code(s): A41.9 - SEPSIS, UNSPECIFIED ORGANISM; R65.20 - SEVERE SEPSIS WITHOUT SEPTIC SHOCK Status: Acute (12) Septic shock Code(s): A41.9 - SEPSIS, UNSPECIFIED ORGANISM; R65.21 - SEVERE SEPSIS WITH SEPTIC SHOCK Status: Resolved (13) Ileus following gastrointestinal surgery Code(s): K91.30 - POSTPROC INTESTINAL OBST, UNSP TO PARTIAL VERSUS COMPLETE Status: Acute (14) Abnormal blood electrolyte level Code(s): E87.8 - OTH DISORDERS OF ELECTROLYTE AND FLUID BALANCE, NEC Status: Acute Comment: hypernatremia, hyperchloromia, hyperphosphatemia - Plan cont current plan of care, plan discussed w/ family, continue antibiotics * continue meropenam and flagyl * today SBFT to rule out SBO * today renal function is worse * medication reviewed as below * symptomatic treatment. * continue IVF with bicarb Review of Systems - Review of Systems Constitutional: weakness, malaise. negative: fever, chills, sweats, other ENT: negative: Ear Pain, Ear Discharge, Nose Pain, Nose Discharge, Nose Congestion, Mouth Pain, Mouth Swelling, Throat Pain, Throat Swelling, Other Respiratory: negative: Cough, Dry, Shortness of Breath, Hemoptysis, SOB with Excertion, Pleuritic Pain, Sputum, Wheezing Cardiovascular: negative: chest pain, palpitations, orthopnea, paroxysmal nocturnal dyspnea, edema, light headedness, other Genitourinary: negative: Dysuria, Frequency, Incontinence, Hematuria, Retention , Other Musculoskeletal: negative: Neck Pain, Shoulder Pain, Arm Pain, Back Pain, Hand Pain, Leg Pain, Foot Pain, Other Skin: negative: Rash, Lesions, Justyn, Bruising, Other Other: not reliable due to lethargy - Medications/Allergies Allergies/Adverse Reactions: Allergies Allergy/AdvReac Type Severity Reaction Status Date / Time pazopanib [From Votrient] Allergy Verified 09/20/17 14:57 Medications: Current Medications Acetaminophen (Tylenol) 650 mg PO Q4H PRN PRN Reason: Headache/Fever or Pain Last Admin: 09/28/17 16:20 Dose: 650 mg Al Hydroxide/Mg Hydroxide (Maalox) 30 ml PO Q6H PRN PRN Reason: Heartburn or Indigestion Albuterol/Ipratropium (Duoneb) 3 ml NEB [id number] PRN PRN Reason: SOB &/or Wheezing Albuterol/Ipratropium (Duoneb) 3 ml NEB [id number] [facility] Last Admin: 09/30/17 08:08 Dose: Not Given Apixaban (Eliquis) 2.5 mg PO BID [facility] Last Admin: 09/29/17 20:11 Dose: 2.5 mg Artificial Tears (Tears Naturale) 0 drop EA EYE PRN PRN PRN Reason: Dry Eyes Atorvastatin Calcium (Lipitor) 10 mg PO HS [facility] Last Admin: 09/29/17 20:11 Dose: 10 mg Furosemide (Lasix) 40 mg SLOW IVP Q12HR [facility] Last Admin: 09/29/17 20:11 Dose: 40 mg Guaifenesin (Robitussin Sf) 200 mg PO Q4H PRN PRN Reason: Cough Last Admin: 09/21/17 08:45 Dose: 200 mg Metronidazole 500 mg/ Device 100 mls @ 100 mls/hr IVPB Q8HR [facility] Last Admin: 09/30/17 06:23 Dose: 100 mls Meropenem 500 mg/Miscellaneous Medication 1 each/ Sterile Water 10 mls @ 120 mls/hr SLOW IVP 0800,1600,2359 [facility] Last Admin: 09/30/17 01:26 Dose: 10 mls Sodium Bicarbonate 50 meq/ (Dextrose/Sodium Chloride) 1,050 mls @ 20 mls/hr IV .Q24H [facility] Last Admin: 09/30/17 02:46 Dose: 1,050 mls Ivabradine (Corlanor) 2.5 mg PO BID [facility] Last Admin: 09/29/17 20:11 Dose: 2.5 mg Loperamide HCl (Imodium) 2 mg PO PRN PRN PRN Reason: Diarrhea/Loose Stools Loratadine (Claritin) 10 mg PO DAILYPRN PRN PRN Reason: Sinus Symptoms Magnesium Hydroxide (Milk Of Magnesium) 30 ml PO DAILYPRN PRN PRN Reason: Constipation Mineral Oil/White Petrolatum (Eucerin Cream) 0 gm TOP BIDPRN PRN PRN Reason: Dry Skin Morphine Sulfate (Morphine) 2 mg SLOW IVP Q2H PRN PRN Reason: Breakthrough pain Stop: 10/21/17 17:54 Last Admin: 09/28/17 23:24 Dose: 2 mg Ondansetron HCl (Zofran Odt) 4 mg PO Q6H PRN PRN Reason: Nausea/Vomiting Ondansetron HCl (Zofran) 4 mg IVP Q6H PRN PRN Reason: Nausea/Vomiting Last Admin: 09/25/17 07:38 Dose: 4 mg Pantoprazole Sodium (Protonix) 40 mg IVP DAILY [facility] Last Admin: 09/29/17 08:54 Dose: 40 mg Phenol (Chloraseptic [place] 180 Ml Bot) 0 ml PO PRN PRN PRN Reason: Sore Throat Promethazine HCl (Phenergan) 6.25 mg SLOW IVP Q6H PRN PRN Reason: Nausea/Vomiting Last Admin: 09/24/17 03:58 Dose: 6.25 mg Senna (Senokot) 2 tab PO HSPRN PRN PRN Reason: Constipation Sodium Chloride ([employer] Nasal [place] 0.65%) 0 ml EA NARE QIDPRN PRN PRN Reason: Nasal Congestion Sodium Chloride (Flush - Normal Saline) 10 ml IVF Q12HR [facility] Last Admin: 09/29/17 20:12 Dose: 10 ml Sodium Chloride (Flush - Normal Saline) 10 ml IVF PRN PRN PRN Reason: Saline Flush Last Admin: 09/29/17 17:45 Dose: 10 ml Tamsulosin HCl (Flomax) 0.4 mg PO DAILY [facility] Last Admin: 09/29/17 08:40 Dose: 0.4 mg
[2017-09-30] MEDS: Furosemide 40 MG/4 ML VIAL SLOW IVP SCH (11:57)
[2017-09-30] MEDS: Ivabradine 5 MG TAB PO SCH (11:58)
[2017-09-30] MEDS: Pantoprazole 40 MG VIAL IVP SCH (11:58)
[2017-09-30] MEDS: Apixaban 5 MG TAB PO SCH (11:58)
[2017-09-30] MEDS: Tamsulosin HCl 0.4 MG CAP PO SCH (11:59)
--- NOTE | 2017-09-30 15:39 | PRG ---
DATE OF SERVICE: 09/30/2017 ROOM: 280. SUBJECTIVE: Mike Matos is undergoing a small bowel follow-through. On the 6-hour x-rays, there was no progression of small bowel contrast. He did have a small bowel movement this morning. His abdom en remained distended and tympanitic. He did have emesis this morning when small bowel follow-throug h was initiated. OBJECTIVE: VITAL SIGNS: Temperature 97.7 degrees, pulse 84, 91/50 blood pressure, and blood pressure has been d eteriorating. LUNGS: Clear to auscultation, rhonchi base, occasionally labored respiration appearing. ABDOMEN: Distended, tympanitic, markedly distended. LABORATORY DATA: White count 15,000 and hemoglobin 11.5. Sodium 150; potassium 3.9; BUN 17; creatin ine 3.33, worsened from yesterday. GFR 18. Estimated urine output 500 mL for 24 hours. Gastric regino inage last 24 hours 600 mL. ASSESSMENT AND PLAN: Bowel obstruction, probably secondary to renal cell carcinoma. He has good bow el sounds and this argues against an ileus. This is more a mechanical obstruction, probably from his metastatic renal cell carcinoma. Patient has deteriorating renal function daily. Given his poor pe rformance status, non-activity, bedridden state, labored respirations, deteriorating renal function, metastatic renal cell carcinoma, overall prognosis is poor. With his delayed small bowel follow-thro ugh, operation is not an option due the patient's poor condition, as he would not make it through the operation or survive afterwards. I would suggest hospice care and the family is in agreement, and I have consulted outpatient hospice and discussed with the license clerk. I have talked to the family ab out visiting outpatient hospice. In my opinion, the patient could be transferred to outpatient hospi ce if the family is agreeable.
--- NOTE | 2017-09-30 15:51 | RAD ---
SMALL BOWEL SERIES: 09/30/17 HISTORY: 81-year-old male with abdominal distention and small bowel obstruction. TECHNIQUE: Gastrografin was injected into the NG tube. Serial overhead radiographs were obtained for a total of 6 hours. FINDINGS: The contrast material is present in multiple dilated proximal and mid small bowel loops, and does not progress much between 1.5 hours and 6 hours. IMPRESSION: High grade small bowel obstruction. POS: ADELE
[2017-09-30 17:01] VITALS: BP 86/52; TEMP 98.2
--- NOTE | 2017-09-30 22:14 | PRG ---
DATE OF SERVICE: 09/30/2017 SUBJECTIVE: Mr. Matos seems to be sleeping more and more each day. He also appears weaker on my ser ial exams. I met with the and extended family and answered all their questions. I do not reall y anticipate that he is going to improve. He was given contrast today and had several small bowel fi lms taken. Imaging appeared to be most consistent with small bowel obstruction according to report. OBJECTIVE: LUNGS: Remarkable for mild rhonchi. CARDIOVASCULAR: Regular rhythm. ABDOMEN: Soft. He still uses accessory muscles. LABORATORY DATA: White count 15.6, hemoglobin 11.5, platelets 231. Sodium 150, potassium 3.9, chlor jeromy 116, bicarbonate 24, BUN 117, creatinine 3.33. IMPRESSION: 1. Respiratory muscle insufficiency. 2. Underlying systolic cardiomyopathy. 3. Extreme deconditioning. 4. Progressive renal failure. 5. Metastatic renal cell carcinoma. 6. History of thromboembolic disease, on prophylactic dose of anticoagulation. 7. Possible bowel obstruction after a cholecystectomy. I explained to the that we are doing everything we can do for him. At this point, I would agree that hospice care, but an inpatient setting would be the best option. Apparently, she is willing to consider this. I do not feel another operative procedure changes any outcome. I would agree with Dr. Dubois's asses sment that hospice is the best option. We will continue to follow him while he is in the hospital.
--- NOTE | 2017-10-01 07:38 | DIS ---
DATE OF ADMISSION: 09/20/2017 DATE OF DISCHARGE: 09/30/2017 DISCHARGE DISPOSITION: [facility] inpatient facility for comfort care. PRIMARY DISCHARGE DIAGNOSES: 1. Septic shock. 2. Acute hypoxic respiratory failure. 3. Acute kidney failure. 4. Sepsis with acute organ dysfunction. 5. Acute cholecystitis, gangrenous. 6. Status post laparoscopic cholecystectomy. 7. Postoperative ileus and small-bowel obstruction. 8. Abnormal blood electrolytes. 9. Atrial fibrillation with flutter with rapid ventricular response. SECONDARY DISCHARGE DIAGNOSES: Metastatic renal cell carcinoma to lung, combined systolic and diasto lic congestive heart failure with advance cardiomyopathy, benign enlargement of prostate, dyslipidemi a, and physical deconditioning. PRIMARY PROCEDURE/OPERATION: 1. Laparoscopic cholecystectomy. 2. Endotracheal intubation and mechanical ventilatory support, central line placement, and G-tube pl acement. RADIOLOGICAL INVESTIGATION: Chest x-ray, abdomen and pelvis CT scan, abdomen ultrasound, echocardiog cindy, chest x-ray, several abdomen x-ray, renal ultrasound, small bowel x-ray. SIGNIFICANT LABORATORY DATA: WBC 15.6, hemoglobin 11.5, platelets 231, INR 1.9, sodium 150, creatini ne 3.33. Urinalysis suggestive of UTI. Blood culture negative. Urine culture negative. Influenza negative. DISCHARGE MEDICATIONS: The patient is discharged to inpatient hospice for comfort care only. HOSPITAL COURSE: A 81-year-old male who has multiple medical problems who was admitted by me on 09/09. Please see my HPI for further details. This patient presented with acute abdominal pain, na usea, and vomiting. He had sepsis with multiple organ dysfunction. He was found with acute cholecys titis and urinary tract infection. Blood culture and urine culture were obtained and the patient was also hypoxic on admission. He had severe cardiomyopathy as well as atrial flutter with rapid ventri cular response. He was admitted to telemetry floor. Patient was evaluated by Dr. Valenzuela and the romana ent was not a good candidate for surgery, but without surgery, patient was not going to survive and javon morris's family member wanted to take a chance of surgery. We consulted Cardiology and Cardiology cl eared him for surgery with risk. The patient was taken for laparoscopic cholecystectomy. He was off on Eliquis therapy for almost 2 d ays. After surgery, he required endotracheal intubation and mechanical ventilatory support and requi red ICU admission. He was having septic shock. He required Levophed and vasopressor support. He arroyo d a central line placement. Pulmonary group was following in ICU. Upon stabilization, this patient was transferred to telemetry floor, but patient developed abdominal distention and ileus and subsequently, the patient developed abdominal small-bowel obstruction and th at required n.p.o. status, NG tube with low intermittent suction. The patient also developed acute k idney failure and renal failure was not improving despite IV fluid and bicarbonate drip. This patient was found with severe obstruction, but he was not a good candidate for any surgery. Car diology, Pulmonary group was following, surgery group was following. This patient's prognosis was ex tremely poor. Yesterday, I spoke with the family member in detail and about prognosis and agreed with hospice, we consulted [facility] and they agreed for inpatient hospice care for comfort care. Thi s patient's prognosis is very poor and survival is very little. Yesterday, I spent almost more than 30 minutes for arranging his discharge to inpatient hospice [facility]. Please see my progress note from yesterday for further details. This is late dictation, but total ti me spent yesterday more than 30 minutes on discharge day.
== END 2017-09-30 22:47 | disposition hospice, inpatient (51) | DRG 853 ==
LOC: ERS 06:47 → 2NO 11:48 → CCU 09-21 12:53 → 2NO 09-24 14:17
PROVIDERS: ADMIT Internal Medicine; ATTEND Internal Medicine
PROC: 0FT44ZZ Resection of Gallbladder, Percutaneous Endoscopic Approach (ICD-10-PCS; principal; 2017-09-21)
PROC: 02H633Z Insertion of Infusion Device into Right Atrium, Percutaneous Approach (ICD-10-PCS; 2017-09-21)
PROC: 5A1935Z Respiratory Ventilation, Less than 24 Consecutive Hours (ICD-10-PCS; 2017-09-21)
PROC: 0BH17EZ Insertion of Endotracheal Airway into Trachea, Via Natural or Artificial Opening (ICD-10-PCS; 2017-09-22)
DX: A41.9 Sepsis, unspecified organism (principal); N17.0 Acute kidney failure with tubular necrosis; R65.21 Severe sepsis with septic shock; J96.01 Acute respiratory failure with hypoxia; I50.43 Acute on chronic combined systolic (congestive) and diastolic (congestive) heart failure; I11.0 Hypertensive heart disease with heart failure; C78.00 Secondary malignant neoplasm of unspecified lung; C64.9 Malignant neoplasm of unspecified kidney, except renal pelvis; D64.9 Anemia, unspecified; I42.8 Other cardiomyopathies; I47.2 Ventricular tachycardia; E87.2 Acidosis; K80.00 Calculus of gallbladder with acute cholecystitis without obstruction; K91.30 Postprocedural intestinal obstruction, unspecified as to partial versus complete; E87.1 Hypo-osmolality and hyponatremia; I48.91 Unspecified atrial fibrillation; E87.70 Fluid overload, unspecified; I48.0 Paroxysmal atrial fibrillation; I25.10 Atherosclerotic heart disease of native coronary artery without angina pectoris; M62.89 Other specified disorders of muscle; K21.9 Gastro-esophageal reflux disease without esophagitis; E78.5 Hyperlipidemia, unspecified; N40.0 Benign prostatic hyperplasia without lower urinary tract symptoms; E87.8 Other disorders of electrolyte and fluid balance, not elsewhere classified; Z51.5 Encounter for palliative care; Z87.891 Personal history of nicotine dependence; Z88.8 Allergy status to other drugs, medicaments and biological substances; Z92.21 Personal history of antineoplastic chemotherapy; Z86.711 Personal history of pulmonary embolism; Z86.718 Personal history of other venous thrombosis and embolism; Z79.01 Long term (current) use of anticoagulants
CPT/HCPCS: 36415; 36416; 71010; 74000; 74020; 74177; 74250; 76705; 76770; 80053; 80069; 81001; 81003; 81015; 82248; 82533; 82553; 82570; 82805; 83605; 83615; 83690; 83735; 83880; 84100; 84156; 84300; 84484; 84550; 85025; 85610; 85730; 86850; 86900; 86901; 87040; 87086; 88304; 93005; 93306; 94002; 94640; 96361; 96365; 96375; A4216; C9113; G8978-GP-CM; G8979-GP-CK; G8987-GO-CM; G8988-GO-CJ; J0131; J0282; J0690; J0696; J0744; J1642; J1940; J1956; J2001; J2185; J2270; J2405; J2543; J2704; J3010; J7042; J7050; J7070; J7620; P9045; P9047; Q0162